=== PATIENT | male | born 1955 | race Caucasian/White ===

== ENCOUNTER 2022-04-02 14:14 | Outpatient (CLI) | payer MEDICARE, OTHER, SELFPAY ==
--- NOTE | 2022-04-02 14:22 | ECG_ITS ---
Measurements Intervals [place] Rate: 68 P: 112 NE: 153 QRS: -51 QRSD: 129 T: 69 QT: 397 QTc: 424 Interpretive Statements SINUS RHYTHM LEFT ANTERIOR FASCICULAR BLOCK CANNOT RULE OUT SEPTAL MYOCARDIAL INFARCTION, OF INDETERMINATE AGE ABNORMAL ECG NO PREVIOUS ECG AVAILABLE FOR COMPARISON Electronically Signed On 04-02-2022 16:24:09 CDT by Mike Nolan M.D.
== END 2022-04-02 14:15 | disposition home or self-care (01) ==
PROVIDERS: Visit Provider Neurological Surgery
DX: Z01.818 Encounter for other preprocedural examination (principal); I44.4 Left anterior fascicular block
CPT/HCPCS: 93005

== ENCOUNTER 2022-04-23 10:06 | Outpatient (CLI) | payer MEDICARE, OTHER, SELFPAY ==
[2022-04-23 10:55] LABS: Anion Gap 12 mmol/L (8-16); Blood Urea Nitrogen 17 mg/dL (9-20); Calcium 9.1 mg/dL (8.4-10.2); Carbon Dioxide 26 mmol/L (22-30); Chloride 102 mmol/L (98-107); Estimated Glomerular Filt Rate > 60; Glucose 152 mg/dL (65-110); Potassium 4.3 mmol/L (3.4-5.0); Sodium 140 mmol/L (137-145)
== END 2022-04-23 10:07 | disposition home or self-care (01) ==
LOC: ANHSURGERY 10:11
PROVIDERS: Anesthesiology; PCP Internal Medicine; Visit Provider Neurological Surgery
DX: Z01.818 Encounter for other preprocedural examination (principal); E11.9 Type 2 diabetes mellitus without complications; M48.062 Spinal stenosis, lumbar region with neurogenic claudication
CPT/HCPCS: 36415; 80048; 86850; 86900; 86901

== ENCOUNTER 2022-04-29 12:11 | Inpatient (IN) | payer MEDICARE, OTHER, SELFPAY ==
[2022-04-18 09:37] VITALS: BMI 38.5
--- NOTE | 2022-04-18 09:58 | PC.NURSE ---
Report to the Outpatient Waiting Room, entrance under the green pavilion located off [facility], at time __10:30AM on date __04/29/22 . Planned Procedure Time: __12:30PM . Time changes happen often and if your time is changed the preop area will call you the afternoon before. - You and your visitor will be asked to self-screen and do not enter if you have any COVID symptoms. - We encourage only one visitor and NO visitors under age 16 are allowed at this time. Your visitor will receive communication by the phone number that is given day of service. - The patient visitor is requested to social distance or may leave the building when not with patient due to restrictions. - A mask is required within the hospital. Patients may have clear liquids (water, carbonated beverages, clear teas, apple juice) until 3 hours prior to surgery with a maximum of 20 ounces. - No food from midnight until time of surgery Take the following medications with a SIP of water the morning of surgery: ___AMLODIPINE, HYDROCODONE NEEDED Medications to discontinue per physician __NONE Date to take last dose Please no make-up, nail urdu, hairspray, perfume, deodorant, or body powder the day of surgery. No jewelry (including any body piercings) or valuables the day of surgery, leave them at home. Please take a shower or bath the night before, or the morning of, surgery with an antibacterial soap. Wear comfortable, loose fitting clothing. Children are encouraged to wear pajamas. - Jewelry must be removed prior to entering the operating room. Rings and piercings that are not removed may be cut off. - The hospital will not accept responsibility for valuables. - Please leave all valuables, including medications, at home the day of surgery. If you are going home after surgery, a licensed regional tanker truck driver must drive you home. - NO public transportation without another adult. - We recommend that an adult stay with you for 24 hours following discharge. - We also recommend that you do not drive, make important decision, drink alcoholic beverages, or take any drugs that were not prescribed by your health care provider for at least 24 hours after your discharge time. Follow any additional instructions given to you from your surgeon. If you or anyone in your household have experienced Covid symptoms in the past week, please notify your surgeon or the nurse liaison at the phone number below for possible testing. Telephone instructions given to __PATIENT and asked if any additional questions and then verbalized understanding. Patient advised to call surgeon office or pre surgery nurse liaison [phone] if any additional questions.
--- NOTE | 2022-04-28 13:00 | WPDANESEPPF ---
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 Patient Data Age: 66 Gender: M Height: 1.83 m Weight: 129 kg Allergies Allergy/AdvReac Type Severity Reaction Status Date / Time No Known Allergies Allergy Unverified 04/29/22 06:47 Home Medications Medication Instructions Recorded Confirmed Type amlodipine 10 mg tablet 10 mg PO DAILY 02/17/22 04/29/22 History hydrocodone 7.5 mg-acetaminophen 1 tablet PO Q8H PRN Pain 02/17/22 04/29/22 History 325 mg tablet lisinopril 40 mg tablet 40 mg PO DAILY 02/17/22 04/18/22 History omeprazole 20 mg capsule,delayed 20 mg PO DAILY PRN Indigestion 02/17/22 04/18/22 History release cyclobenzaprine 10 mg tablet 10 mg PO TID PRN Cramps 04/18/22 04/18/22 History hydrochlorothiazide 25 mg tablet 25 mg PO QAM 04/18/22 04/29/22 History metformin 500 mg tablet,extended 1,500 mg PO QAM 04/18/22 04/18/22 History release 24 hr ondansetron HCl 4 mg tablet 4 mg PO Q6-8H PRN Nausea 04/18/22 04/18/22 History ECG: Date of Service: 04/02/22 Procedure(s): CA 12 lead EKG Accession Number(s): [id number] cc: ~ ? Measurements Intervals? [place]? Rate: ? 68 ? P:? 112 IN: ? 153? QRS:? -51 QRSD: ? 129? T:? 69 QT: ? 397? QTc:? 424? Interpretive Statements SINUS RHYTHM LEFT ANTERIOR FASCICULAR BLOCK? CANNOT RULE OUT SEPTAL MYOCARDIAL INFARCTION, OF INDETERMINATE AGE ABNORMAL ECG NO PREVIOUS ECG AVAILABLE FOR COMPARISON Electronically Signed On 04-02-2022 16:24:09 CDT by Mike Nolan M.D. Patient hx anesthesia problems: none Family hx anesthesia problems: none Results Review: All pre-operative results and documents have been reviewed as part of the pre-operative evaluation. [facility] Past Medical History Medical History (Updated 04/28/22 @ 13:01 by Meir Dumont MD) Benign prostatic hyperplasia with lower urinary tract symptoms Chronic narcotic use Diabetes HTN (hypertension) Obesity Osteoarthritis Urgency of urination Surgical History Surgical History Previous back surgery Family History Family History Other Malignant neoplasm of prostate Social History Social History Smoking packs per day: 1 Smoking cigarettes per day: 20.0 Years smoked: 10 Smoking pack-years: 10.00 Smoking status: Former smoker Tobacco type: cigarettes Smoking end date: 06/07/89 Alcohol intake: current Substance use: never Substance use type: does not use Living arrangements: with family Additional living arrangements comments: Spiritual care concerns: No Anes - Eval Final PreProcedure Day of Procedure 04/28/22 13:00 Patient weight: obese Heart: regular rate and rhythm Lungs: clear to auscultation and normal air movement Airway: Mallampati scale class II Neurological: alert and oriented Last oral intake: >/= 8 hours ASA classification: III Emergent: no Anesthetic plan: proceed Anesthesia type and monitoring: general ETT Results Review: All pre-operative results and documents have been reviewed as part of the pre-operative evaluation. Informed Consent: The patient's anesthetic plan and its attendant risks and benefits were discussed with the patient/family/POA. Questions were solicited and answers provided to the satisfaction of the patient/family/POA.
[2022-04-29] VITALS (15 sets, daily range): BP systolic 82–128; BP diastolic 43–73; PULSE 44–73; RESP 14–22; TEMP 36.2–36.6; O2SAT 94–100
--- NOTE | ~2022-04-29 | XR_ITS ---
XR abdomen/kub 1V DATE: 05/01/2022 22:03 INDICATION: Abdominal pain, nausea and vomiting TECHNIQUE: 2 portable AP views COMPARISON: None FINDINGS: There is gaseous distention but no abnormal dilatation of much of the colon, terminating at the mid sigmoid area. No colonic thumbprinting is noted. Consider further evaluation with radiograph ic barium or Hypaque enema procedure or CT abdomen pelvis as clinically appropriate. Status post posterior and interbody spinal fusion at L2-L5. IMPRESSION: Gaseous distention of the colon to the mid sigmoid level; consider radiographic barium or Hypaque enema or CT abdomen pelvis for further evaluation Reviewed, dictated and finalized at [facility]. Reviewed, dictated and finalized at [facility]. ING HOME AIDE IMPRESSION: Gaseous distention of the colon to the mid sigmoid level; consider radiographic barium or Hypaque enema or CT abdomen pelvis for further evaluatio n
--- NOTE | ~2022-04-29 | XR_ITS ---
EXAMINATION: XR fluoroscopy no charge DATE: 04/29/2022 10:33 INDICATION: L2-L3 posterior lumbar interbody fusion TECHNIQUE: Single fluoroscopic image of the lumbar spine was obtained in lateral projection during pr ocedure performed by Dr. He. Radiologist was not present for the imaging or procedure. [facility] nt of fluoroscopy time used during this procedure was 0.1 minutes. COMPARISON: MRI dated 07/30/2021 FINDINGS: Again seen is an instrumented L3-L4 and L4-L5 anterior and posterior spinal fusion with interbody bon e graft cages at both levels and bilateral vertical gaviota and pedicle screw fixation. There is placemen t of a new interbody fusion device at L2-L3 and placements of pedicle screws at L2 presumably for cep halad extension of the prior posterior spinal fusion. Lucent operative bed with soft tissue retractor s posterior to the lumbar spine. IMPRESSION: 1. Fluoroscopy utilized during extension of a previous combined instrumented anterior and posterior L 3-L5 posterior spinal fusion to now include L2-L3. See procedure note for further detail. Reviewed, dictated and finalized at [facility]. N AGENT IMPRESSION: 1. Fluoroscopy utilized during extension of a previous combined instrumented an terior and posterior L3-L5 posterior spinal fusion to now include L2-L3. See pr ocedure note for further detail.
[2022-04-29] MEDS: LACTATED RINGERS 1,000 ML 30 ML IV CONT ×3 (06:30→11:00)
[2022-04-29 06:35] LABS: Glucose Point of Care 155 mg/dl (65-105)
--- NOTE | 2022-04-29 07:45 | PM.IMHP ---
H&P: HPI History of Present Illness Date/Time: 04/29/22 07:45 Chief Complaint: Back and leg pain Narrative: Hamzah is a 66-year-old gentleman with back and leg pain related to junctional stenosis at L2-3 presents for extension of his fusion. He has not changed appreciably since we saw him last. He does not have dermatomal numbness or specific muscle group weakness. He is not having bowel or bladder difficulty. Review of Systems Review of Systems: Patient denies shortness of breath, cough, fever, chills, nausea, vomiting, weight loss, weight gain, chest pain, dysuria. He has back and leg pain as above. He is morbidly obese. His review of systems otherwise negative on 12 systems except as noted elsewhere. [facility] Past Medical History Medical History Benign prostatic hyperplasia with lower urinary tract symptoms Chronic narcotic use Diabetes HTN (hypertension) Obesity Osteoarthritis Urgency of urination Surgical History Surgical History Previous back surgery Family History Family History Other Malignant neoplasm of prostate Social History Social History Smoking packs per day: 1 Smoking cigarettes per day: 20.0 Years smoked: 10 Smoking pack-years: 10.00 Smoking status: Former smoker Tobacco type: cigarettes Smoking end date: 06/07/89 Alcohol intake: current Substance use: never Substance use type: does not use Living arrangements: with family Additional living arrangements comments: Spiritual care concerns: No Meds Home Medications and Allergies Home Medications Medication Instructions Recorded Confirmed Type amlodipine 10 mg tablet 10 mg PO DAILY 02/17/22 04/29/22 History hydrocodone 7.5 mg-acetaminophen 1 tablet PO Q8H PRN Pain 02/17/22 04/29/22 History 325 mg tablet lisinopril 40 mg tablet 40 mg PO DAILY 02/17/22 04/29/22 History omeprazole 20 mg capsule,delayed 20 mg PO DAILY PRN Indigestion 02/17/22 04/29/22 History release cyclobenzaprine 10 mg tablet 10 mg PO TID PRN Cramps 04/18/22 04/29/22 History hydrochlorothiazide 25 mg tablet 25 mg PO QAM 04/18/22 04/29/22 History metformin 500 mg tablet,extended 1,500 mg PO QAM 04/18/22 04/29/22 History release 24 hr ondansetron HCl 4 mg tablet 4 mg PO Q6-8H PRN Nausea 04/18/22 04/29/22 History Allergies Allergy/AdvReac Type Severity Reaction Status Date / Time No Known Allergies Allergy Unverified 04/29/22 06:47 Vital Signs Vital Signs - 24 hr 04/29/22 06:07 Temperature 97.3 F L Pulse Rate 61 Respiratory Rate 18 Blood Pressure 124/73 Pulse Oximetry 97 Oxygen Delivery Room Air Exam Narrative: Strength is normal the bilateral lower extremities to direct confrontation. Sensation is intact to light touch throughout the lower extremities. Regular rate and rhythm Clear to auscultation Assessment and Plan Assessment and plan (1) Lumbar stenosis with neurogenic claudication: Code(s): M48.062 - Spinal stenosis, lumbar region with neurogenic claudication Status: Acute Plan Hamzah is a 66-year-old gentleman who presents for L2-3 posterior lumbar interbody fusion for junctional stenosis. I described to him that operation, its risks, potential benefits, the operative and postoperative course in detail and answered all his questions personally as well as discussed alternatives. He indicates understanding and elects to proceed with that operation.
--- NOTE | 2022-04-29 07:48 | WPDHPUPDATE1 ---
History and Physical Update Update Date/Time: 04/29/22 07:48 History and Physical has been reviewed, including an updated exam of the patient. There are NO changes in the patient's condition. Risks, benefits, and alternatives have been discussed and questions answered. Patient agrees to proceed with procedure.
[2022-04-29] MEDS: ceFAZolin 3 GM/D5W 100 ML 100 ML IVPB (07:49)
[2022-04-29] MEDS: LIDO 2%/EPINEPHRINE 1:100,000 50 ML VIAL 10 ML INFILTRATE (08:24)
--- NOTE | 2022-04-29 10:47 | W.PM.PROC2 ---
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 Description of Procedure The patient was brought to the operating room in the supine position, was sedated, intubated and placed under general anesthesia in routine fashion. He was then turned into the prone position on an open Jax table. The area of operation on his back was examined, marked for incision, prepped and draped in routine sterile fashion. Incision was marked over the L2 through 5 spinous processes in the midline. This area was injected with 0.5% lidocaine with 1 to [id number] epinephrine. Intravenous antibiotics given prior to incision. Incision was made with a 10 blade scalpel down to the lumbodorsal fascia. A subperiosteal dissection of the muscle and soft tissue away from the spinous process and lamina of L2 was performed with a subperiosteal elevator and Bovie cautery. The instrumentation at L 3-5 was uncovered using Bovie cautery. A verifying x-rays obtained to verify the level of operation. The L2 spinous process was removed with the Chelsea rongeur. Kerrison punches, curved curettes and a Leksell rongeur were used to remove lamina the midline and to the soft contents of the canal were encountered. A Midas Lebron drill was used to resect the pars bilaterally. The inferior articular process and facet of L2 could not be removed bilaterally. When this was done on the right side of the dura came with the facet and peeled superiorly exposing arachnoid below. There was minimal leaking throughout the case. For this reason, however, it was decided to place a single graft in TLIF fashion from the left. Curved curettes and Kerrison punches were used to define a plane with the dura and remove bone and ligament flush with the pedicle and through the foramina widely decompressing the exiting nerve roots. On the left with the thecal sac retracted and protected the disc space was entered using an 11 blade scalpel. Herniated disc was removed from beneath ligament. Scrapers a very sizes, curettes of various configurations, pituitary rongeur and a rasp were used to remove as much cartilaginous endplate and disc material as possible down to bleeding cortical flat surfaces on the opposing bones. The disc space was incised and a 10 mm interbody device was chosen and filled with local autograft bone. The disc space likewise was filled with local autograft bone medially, laterally and anteriorly. The interbody device was then placed in a diagonal fashion across the disc space to a 2-3 mm countersink. Pedicle screw instrumentation was performed at L2 by observing and palpating the pedicle while a hole was made in the superior take your process above the pedicle using a Midas Lebron drill. The pedicle was then cannulated with a pedicle probe, checked for continuity with the ball probe, tapped with the 5.5 mm tap and a 6.5 x 50 mm screw was placed into each pedicle on each side. The caps at L3-5 were removed using the appropriate show horse driver. The rods could then also be removed. The 90 mm rods were then placed into the screw heads on either side and secured in position using the capsule and purpose. These were definitively tightened with a torque anti torque device. Two large pieces of subcutaneous fat were harvested. These were placed against the peeled up dura which was reflected back into position. DuraSeal and DuraGen were placed over all of this. No leaking was noted. The wou
[2022-04-29 10:55] LABS: Glucose Point of Care 232 mg/dl (65-105)
--- NOTE | 2022-04-29 11:10 | SUR.PHASEI ---
1110- Notified Dr. Dumont patient's BG [id number] Dumont no additional orders at this time with patient being admitted to floor for overnight stay.
[2022-04-29] MEDS: ONDANSETRON INJ 4 MG/2 ML VIAL IV PUSH (11:33)
--- NOTE | 2022-04-29 12:14 | PCPTNOTE ---
Per tank charger, pt is on bedrest for a full 24 hours. Will Follow.
--- NOTE | 2022-04-29 12:20 | ADMGEN ---
This patient, Hamzah Lynn, was admitted to 2 Medical Room 256-01. Patient/family oriented to hospital policies and general routines including ID bracelet, bed and alarms, visiting hours, pain management, procedures, bathroom and other care routines, personal items, smoking policy, room service/diet, and visiting hours. Information on how to activate the Rapid Response Team has been discussed. Patient/Family are encouraged to report perceived risks to care and to ask questions if they do not understand what they are told or what they should do.
[2022-04-29] MEDS: KCL 20 MEQ/D5/0.45% SOD CHL 1,000 ML 100 ML IV CONT ×2 (13:23→23:34)
[2022-04-29] MEDS: ONDANSETRON HCL ODT 4 MG TABLET PO (13:26)
[2022-04-29] MEDS: HYDROmorphone HCL INJ (*CRX) 1 MG/ML SYR 0.5 MG IV PUSH (13:29)
[2022-04-29] MEDS: HYDROmorphone HCL INJ (*CRX) 1 MG/ML SYR IV PUSH ×4 (15:10→22:16)
[2022-04-29] MEDS: SCOPOLAMINE 1.5 MG PATCH TRANSDERM (17:11)
[2022-04-29 17:25] LABS: Glucose Point of Care 176 mg/dl (65-105)
[2022-04-29] MEDS: DOCUSATE SODIUM 100 MG CAPSULE PO (20:35)
[2022-04-29 23:07] LABS: Glucose Point of Care 112 mg/dl (65-105)
[2022-04-30] MEDS: HYDROmorphone HCL INJ (*CRX) 1 MG/ML SYR IV PUSH ×6 (00:21→19:48)
[2022-04-30 00:51] VITALS: BP 116/59; PULSE 60; RESP 16; TEMP 36.6; O2SAT 96
[2022-04-30] MEDS: ONDANSETRON HCL ODT 4 MG TABLET PO (03:19)
[2022-04-30 06:04] VITALS: BP 121/65; PULSE 63; RESP 16; TEMP 36.7; O2SAT 92
[2022-04-30] MEDS: ONDANSETRON INJ 4 MG/2 ML VIAL IV PUSH (06:36)
[2022-04-30 08:51] LABS: Glucose Point of Care 236 mg/dl (65-105)
[2022-04-30] MEDS: INSULIN ASPART (*BKC) 100 UNITS/ML SUB-Q (09:34)
[2022-04-30] MEDS: KCL 20 MEQ/D5/0.45% SOD CHL 1,000 ML 30 ML IV CONT (09:35)
[2022-04-30 09:58] VITALS: BP 131/69; PULSE 61; RESP 20; TEMP 37.1; O2SAT 91
--- NOTE | 2022-04-30 10:03 | PCOTNOTE ---
Per charge histotechnologist, pt is on bedrest for a full 24 hours. Will Follow.
--- NOTE | 2022-04-30 10:11 | PC.NURSE ---
holding 0900 PO medications until Noon when patient can elevate HOB
[2022-04-30 11:59] LABS: Glucose Point of Care 210 mg/dl (65-105)
--- NOTE | 2022-04-30 13:21 | PCPTNOTE ---
Per Dr. He, hold PT for today. Will Follow.
[2022-04-30] MEDS: metFORMIN HCL XR 500 MG TAB.SR.24H 1500 MG PO (13:26)
[2022-04-30] MEDS: hydroCHLOROthiazide 25 MG TABLET PO (13:26)
[2022-04-30] MEDS: amLODIPine BESYLATE 5 MG TABLET 10 MG PO (13:26)
[2022-04-30] MEDS: DOCUSATE SODIUM 100 MG CAPSULE PO ×2 (13:27→20:43)
[2022-04-30] MEDS: lisinopriL 20 MG TABLET 40 MG PO (13:27)
--- NOTE | 2022-04-30 13:27 | PCOTNOTE ---
Per Dr. He, hold therapy services for today. Will Follow.
--- NOTE | 2022-04-30 13:36 | WPDNEUROSGPN ---
Progress Note: A&P Assessment and Plan (1) Lumbar stenosis with neurogenic claudication: Code(s): M48.062 - Spinal stenosis, lumbar region with neurogenic claudication Status: Acute Plan Hamzah is doing well status post L2-3 posterior lumbar interbody fusion for junctional stenosis. We will start to raises had gradually today and by this evening he may get out of bed and sit in the chair if he would like. Physical and occupational therapy are involved in his care. Subjective Date/time seen: 04/30/22 13:36 Hamzah is postop day 1 status post L2-3 posterior lumbar interbody fusion. He has significant back discomfort near the area of the operation. He had a headache for a while but his head was lying flat at the time. This has gone away. He has had no leakage from his wound. He does not report any new issues in his lower extremities. Exam Narrative: Strength appears to be normal the bilateral lower extremities to direct confrontation. Sensation is intact to light touch throughout the lower extremities. The dressing and wound are clean, dry and intact. Objective Data Vital Signs Vital Signs: Vital Signs - 24 hr 04/29/22 15:11 04/29/22 20:02 04/29/22 20:00 Temperature 97.9 F 97.6 F Pulse Rate 58 L 52 L Respiratory Rate 16 16 Blood Pressure 126/63 116/60 Pulse Oximetry 100 99 Oxygen Delivery Room Air 04/30/22 00:51 04/30/22 06:04 04/30/22 09:58 Temperature 97.9 F 98.1 F 98.7 F Pulse Rate 60 63 61 Respiratory Rate 16 16 20 Blood Pressure 116/59 L 121/65 131/69 Pulse Oximetry 96 92 91 Oxygen Delivery 04/30/22 08:00 Temperature Pulse Rate Respiratory Rate Blood Pressure Pulse Oximetry Oxygen Delivery Room Air Intake/Output Intake/Output: Intake & Output 04/27/22 04/28/22 04/29/22 04/30/22 23:59 23:59 23:59 23:59 Intake Total 4150 1750 Output Total 635 950 Balance 3515 800 Meds/Results Medications: Active Medications Generic Name Dose Route Start Last Admin Trade Name Freq PRN Reason Stop Dose Admin Hydrocodone Bitart/Acetaminophen 1 tab 04/29/22 12:11 Hydrocodone/Acetaminophen (*Crx) 5-325 Mg Tablet PO Q4H PRN Mild Pain (1-3) Hydrocodone Bitart/Acetaminophen 1 tab 04/29/22 12:11 Hydrocodone/Acetaminophen (*Crx) 10-325 Mg Tablet PO Q4H PRN Moderate Pain (4-6) Al Hydrox/Mg Hydrox/Simethicone 20 ml 04/29/22 12:11 Mag Hydrox/Al Hydrox/Simeth 30 Ml Udc PO Q4H PRN Indigestion/Heartburn Amlodipine Besylate 10 mg 04/30/22 09:00 04/30/22 13:26 Amlodipine Besylate 5 Mg Tablet PO 10 mg DAILY IRENE Administration Bisacodyl 10 mg 04/29/22 12:11 Bisacodyl 10 Mg Suppository RECTAL DAILY PRN Constipation Cyclobenzaprine HCl 10 mg 04/29/22 12:11 Cyclobenzaprine Hcl 10 Mg Tablet PO TID PRN Muscle Spasms Dextrose 12.5 gm 04/29/22 15:50 Dextrose 50% 25 Gm/50 Ml Syringe IV PUSH PRN PRN Hypoglycemia Protocol Docusate Sodium 100 mg 04/29/22 21:00 04/30/22 13:27 Docusate Sodium 100 Mg Capsule PO 100 mg Q12HR IRENE Administration Glucagon 1 mg 04/29/22 15:50 Glucagon For Inj 1 Mg Vial IM PRN PRN Hypoglycemia Protocol Glucose 15 gm 04/29/22 15:50 Glucose Oral Gel 15 Gm Of Glucse In 37.5 Gm Tube PO PRN PRN Hypoglycemia Protocol Hydrochlorothiazide 25 mg 04/30/22 09:00 04/30/22 13:26 Hydrochlorothiazide 25 Mg Tablet PO 25 mg QAM IRENE Administration Hydromorphone HCl 1 mg 04/29/22 14:53 04/30/22 11:48 Hydromorphone Hcl Inj (*Crx) 1 Mg/Ml Syr IV PUSH 1 mg Q2H PRN Administration Pain Rated 7-10 Potassium Chloride/Dextrose/Sod Cl 1,000 mls @ 100 mls/hr 04/29/22 12:11 04/30/22 09:35 Kcl 20 Meq/D5/0.45% Sod Chl IV CONT 30 mls/hr .Q10H IRENE Administration Dextrose 1,000 mls @ 100 mls/hr 04/29/22 15:50 Dextrose 5% 1,000 Ml IVPB PRN PRN Hypoglycemia
[2022-04-30 14:16] VITALS: BP 140/55; PULSE 59; RESP 24; TEMP 36.5; O2SAT 96
--- NOTE | 2022-04-30 14:17 | PC.NURSE ---
Per Dr. He, leave Felix catheter in until tomorrow 05/01. Follow up w/ him before removal.
[2022-04-30 17:14] LABS: Glucose Point of Care 170 mg/dl (65-105)
[2022-04-30 17:22] VITALS: BP 137/89; PULSE 69; RESP 20; TEMP 36.2; O2SAT 92
[2022-04-30 22:32] LABS: Glucose Point of Care 196 mg/dl (65-105)
[2022-04-30] MEDS: HYDROcodone/acetaminophen (*CRX) 10-325 MG TABLET 1 TAB PO (22:38)
[2022-04-30 22:46] VITALS: BP 135/73; PULSE 70; RESP 18; TEMP 36.9; O2SAT 95
--- NOTE | 2022-04-30 23:28 | WPDNEUROSGPN ---
Subjective Date/time seen: 04/30/22 23:28 Felicia is postop day 1 status post L2-3 posterior lumbar interbody fusion. Objective Data Vital Signs Vital Signs: Vital Signs - 24 hr 04/30/22 00:51 04/30/22 06:04 04/30/22 09:58 Temperature 97.9 F 98.1 F 98.7 F Pulse Rate 60 63 61 Respiratory Rate 16 16 20 Blood Pressure 116/59 L 121/65 131/69 Pulse Oximetry 96 92 91 Oxygen Delivery 04/30/22 08:00 04/30/22 14:16 04/30/22 17:22 Temperature 97.7 F 97.2 F L Pulse Rate 59 L 69 Respiratory Rate 24 H 20 Blood Pressure 140/55 L 137/89 Pulse Oximetry 96 92 Oxygen Delivery Room Air 04/30/22 20:10 04/30/22 22:46 Temperature 98.4 F Pulse Rate 70 Respiratory Rate 18 Blood Pressure 135/73 Pulse Oximetry 95 Oxygen Delivery Room Air Intake/Output Intake/Output: Intake & Output 04/27/22 04/28/22 04/29/22 04/30/22 23:59 23:59 23:59 23:59 Intake Total 4150 1950 Output Total 635 950 Balance 3515 1000 Meds/Results Medications: Active Medications Generic Name Dose Route Start Last Admin Trade Name Freq PRN Reason Stop Dose Admin Hydrocodone Bitart/Acetaminophen 1 tab 04/29/22 12:11 Hydrocodone/Acetaminophen (*Crx) 5-325 Mg Tablet PO Q4H PRN Mild Pain (1-3) Hydrocodone Bitart/Acetaminophen 1 tab 04/29/22 12:11 04/30/22 22:38 Hydrocodone/Acetaminophen (*Crx) 10-325 Mg Tablet PO 1 tab Q4H PRN Administration Moderate Pain (4-6) Al Hydrox/Mg Hydrox/Simethicone 20 ml 04/29/22 12:11 Mag Hydrox/Al Hydrox/Simeth 30 Ml Udc PO Q4H PRN Indigestion/Heartburn Amlodipine Besylate 10 mg 04/30/22 09:00 04/30/22 13:26 Amlodipine Besylate 5 Mg Tablet PO 10 mg DAILY IRENE Administration Bisacodyl 10 mg 04/29/22 12:11 Bisacodyl 10 Mg Suppository RECTAL DAILY PRN Constipation Cyclobenzaprine HCl 10 mg 04/29/22 12:11 Cyclobenzaprine Hcl 10 Mg Tablet PO TID PRN Muscle Spasms Dextrose 12.5 gm 04/29/22 15:50 Dextrose 50% 25 Gm/50 Ml Syringe IV PUSH PRN PRN Hypoglycemia Protocol Docusate Sodium 100 mg 04/29/22 21:00 04/30/22 20:43 Docusate Sodium 100 Mg Capsule PO 100 mg Q12HR IRENE Administration Glucagon 1 mg 04/29/22 15:50 Glucagon For Inj 1 Mg Vial IM PRN PRN Hypoglycemia Protocol Glucose 15 gm 04/29/22 15:50 Glucose Oral Gel 15 Gm Of Glucse In 37.5 Gm Tube PO PRN PRN Hypoglycemia Protocol Hydrochlorothiazide 25 mg 04/30/22 09:00 04/30/22 13:26 Hydrochlorothiazide 25 Mg Tablet PO 25 mg QAM IRENE Administration Hydromorphone HCl 1 mg 04/29/22 14:53 04/30/22 19:48 Hydromorphone Hcl Inj (*Crx) 1 Mg/Ml Syr IV PUSH 1 mg Q2H PRN Administration Pain Rated 7-10 Potassium Chloride/Dextrose/Sod Cl 1,000 mls @ 100 mls/hr 04/29/22 12:11 04/30/22 23:18 Kcl 20 Meq/D5/0.45% Sod Chl IV CONT Not Given .Q10H IRENE Dextrose 1,000 mls @ 100 mls/hr 04/29/22 15:50 Dextrose 5% 1,000 Ml IVPB PRN PRN Hypoglycemia Protocol Acetaminophen 1,000 mg in 100 mls @ 400 mls/hr 04/30/22 11:36 04/30/22 12:00 Ofirmev 1,000 Mg Ivpb IVPB 05/01/22 11:35 Infused Q6H PRN Infusion Pain Rated 4-6 Insulin Aspart 2 - 5 units 04/29/22 17:00 04/30/22 17:13 Insulin Aspart (*Bkc) 100 Units/Ml SUB-Q Not Given TIDWM IRENE Protocol Lisinopril 40 mg 04/30/22 09:00 04/30/22 13:27 Lisinopril 20 Mg Tablet PO 40 mg DAILY IRENE Administration Metformin HCl 1,500 mg 04/30/22 09:00 04/30/22 13:26 Metformin Hcl Xr 500 Mg Tab.Sr.24h PO 1,500 mg QAM IRENE Administration Ondansetron HCl 4 mg 04/29/22 15:50 04/30/22 03:19 Ondansetron Hcl Odt 4 Mg Tablet PO 4 mg Q4H PRN Administration Nausea Ondansetron HCl 4 mg 04/29/22 15:51 04/30/22 06:36 Ondansetron Inj 4 Mg/2 Ml Vial IV PUSH 4 mg Q4H PRN Administration Nausea And Vomiting Pantoprazole Sodium 40 mg 04/29/22 12:11
[2022-05-01] MEDS: ONDANSETRON HCL ODT 4 MG TABLET PO ×2 (01:22→05:07)
[2022-05-01 01:49] VITALS: BP 111/58; PULSE 74; RESP 18; TEMP 37.1; O2SAT 97
[2022-05-01] MEDS: HYDROcodone/acetaminophen (*CRX) 10-325 MG TABLET 1 TAB PO ×2 (05:07→21:24)
[2022-05-01 06:47] VITALS: BP 151/75; PULSE 80; RESP 18; TEMP 36.9; O2SAT 95
[2022-05-01 08:11] LABS: Glucose Point of Care 242 mg/dl (65-105)
[2022-05-01] MEDS: amLODIPine BESYLATE 5 MG TABLET 10 MG PO (08:20)
[2022-05-01] MEDS: lisinopriL 20 MG TABLET 40 MG PO (08:20)
[2022-05-01] MEDS: DOCUSATE SODIUM 100 MG CAPSULE PO ×2 (08:20→19:22)
[2022-05-01] MEDS: metFORMIN HCL XR 500 MG TAB.SR.24H 1500 MG PO (08:20)
[2022-05-01] MEDS: hydroCHLOROthiazide 25 MG TABLET PO (08:20)
[2022-05-01] MEDS: INSULIN ASPART (*BKC) 100 UNITS/ML SUB-Q (08:44)
[2022-05-01] MEDS: ONDANSETRON INJ 4 MG/2 ML VIAL IV PUSH ×3 (11:23→22:47)
[2022-05-01] MEDS: MAG HYDROX/AL HYDROX/SIMETH 30 ML UDC 20 ML PO (11:23)
[2022-05-01 12:18] LABS: Glucose Point of Care 196 mg/dl (65-105)
[2022-05-01 14:50] VITALS: BP 146/67; PULSE 68; RESP 16; TEMP 36.9; O2SAT 96
[2022-05-01 18:13] LABS: Glucose Point of Care 190 mg/dl (65-105)
[2022-05-01 19:41] VITALS: O2SAT 96
[2022-05-01 19:57] LABS: Glucose Point of Care 199 mg/dl (65-105)
--- NOTE | 2022-05-01 20:10 | WPDCN ---
Assessment and Plan Assessment and plan (1) Lumbar stenosis with neurogenic claudication: Code(s): M48.062 - Spinal stenosis, lumbar region with neurogenic claudication Status: Acute Assessment and Plan: Postoperative day 2 status post L2-3 posterior lumbar interbody fusion for junctional stenosis. Wound care, pain control, and DVT prophylaxis deferred to primary team. (2) Postoperative nausea and vomiting: Code(s): R11.2 - Nausea with vomiting, unspecified; Z98.890 - Other specified postprocedural states Status: Acute Assessment and Plan: An ongoing issue since surgery although he has had indigestion, dyspepsia, and belching since being hospitalized last month for pancreatitis. Change omeprazole to pantoprazole IV as he is not tolerating p.o. well at this point. Labs and exam are not consistent with pancreatitis. Check KUB as he has not had a bowel movement since Thursday. Given ongoing symptoms, Dr. Foster has been consulted for consideration for possible upper endoscopy. Continue supportive care with hydration and antiemetics as needed. (3) Hyponatremia: Code(s): E87.1 - Hypo-osmolality and hyponatremia Status: Acute Assessment and Plan: Sodium was 140 on 04/23/2022 and is 126 this evening. Etiology is not entirely clear however it may very well be due to dehydration given his poor oral intake and vomiting. SIADH is a possibility given recent surgery and narcotic use. The last 2 days he has been receiving D5/half-normal saline which could also be dropping his sodium in addition to his usual dose of hydrochlorothiazide. I suspect he is probably a bit dry and he will receive a bolus of normal saline followed by 100 milliliters/hour. Sodium will be repeated in a few hours to ensure that is responding appropriately. TSH, urine and serum osmolalities, and urine urea, sodium, and creatinine are pending. (4) Dyspepsia: Code(s): R10.13 - Epigastric pain Status: Acute Assessment and Plan: Zofran available as needed. Continue IV pantoprazole. GI consulted. (5) Type 2 diabetes mellitus: Code(s): E11.9 - Type 2 diabetes mellitus without complications Status: Acute Assessment and Plan: Hold metformin as it may be causing GI upset on his empty stomach. Initiate sliding scale insulin, Accu-Cheks, and hypoglycemic protocol. (6) Hypertension: Code(s): I10 - Essential (primary) hypertension Status: Acute Assessment and Plan: Blood pressures were reviewed and they have been reasonable. Monitor closely as hydrochlorothiazide is on hold. (7) Leukocytosis: Code(s): D72.829 - Elevated white blood cell count, unspecified Status: Acute Assessment and Plan: No history to suggest active infection. May be a stress response/inflammation from surgery. Monitor. Plan Thank you for allowing us to participate in this patient's care. Please do not hesitate to contact us with any questions. Supervising physician for this medical consultation is Dr. Juarez. HPI Data of Consult Date/Time: 05/01/22 20:10 Requesting Physician: Marky He MD Primary Care Provider: Nicola Patel, Consult Narrative Reason for consult: Nausea. Narrative: This is a 66-year-old male with history of pancreatitis, GERD, hypertension, diabetes, and BPH who is postoperative day 2 status post L2-3 posterior lumbar interbody fusion per Dr. He whom the hospitalist service has been consulted for ongoing nausea and vomiting. He has had pretty continuous nausea since surgery with heartburn, belching, and occasional emesis. He has been on a clear liquid diet and has not had any solid food although he was offered that today he had no desire to eat. He has been trying to stay hydrated and is drinking 4 to 5 cups of water a day. Zofran helps only for short period of time. Today he reports that his emesis was yellow and that
[2022-05-01 20:23] LABS: Basophils Percent Auto 0.2 % (0.2-1.2); Hematocrit 41.8 % (42.0-52.0); Hemoglobin 14.3 g/dL (14.0-18.0); Immature Granulocyte Absolute 0.16 K/mm3 (0.00-0.031); Immature Granulocyte Percent A 0.7 % (0-0.5); Lymphocytes Absolute Auto 1.05 K/mm3 (0.9-3.2); Lymphocytes Percent Auto 4.7 % (18.3-44.2); Mean Corpuscular HGB Conc 34.2 g/dl (32-36); Mean Corpuscular Volume 90.5 fl (80-100); Monocytes Absolute Auto 1.4 K/mm3 (0.1-0.6); Monocytes Percent Auto 6.5 % (2.6-8.5); Neutrophils Absolute Auto 19.6 K/mm3 (1.3-6.7); Neutrophils Percent Auto 87.9 % (45.5-73.1); Platelet Count Result 260 k/mm3 (150-375); Red Blood Count 4.62 M/mm3 (4.6-6.20); White Blood Count 22.3 K/mm3 (4.5-10.0)
[2022-05-01 20:34] LABS: Alanine Aminotransferase 46 U/L (6-50); Albumin Level 3.7 g/dL (3.5-5.1); Alkaline Phosphatase 53 U/L (38-126); Anion Gap 9 mmol/L (8-16); Aspartate Amino Transferase 81 U/L (17-59); Bilirubin,Total 1.4 mg/dL (0.2-1.3); Blood Urea Nitrogen 13 mg/dL (9-20); Calcium 8.8 mg/dL (8.4-10.2); Carbon Dioxide 23 mmol/L (22-30); Chloride 94 mmol/L (98-107); Estimated CRCL calculation 110 ml/min; Estimated Glomerular Filt Rate > 60; Glucose 198 mg/dL (65-110); Lipase 17 U/L (23-300); Magnesium 1.6 mg/dL (1.6-2.3); Potassium 3.8 mmol/L (3.4-5.0); Sodium 126 mmol/L (137-145)
[2022-05-01 20:37] LABS: Hemoglobin A1C 7.2 % (<5.7)
[2022-05-01 20:39] VITALS: BP 152/86; PULSE 91; RESP 20; TEMP 36.9; O2SAT 99
--- NOTE | 2022-05-01 20:44 | WPDNEUROSGPN ---
Progress Note: A&P Assessment and Plan (1) Lumbar stenosis with neurogenic claudication: Code(s): M48.062 - Spinal stenosis, lumbar region with neurogenic claudication Status: Acute Assessment and Plan: Hamzah is doing well status post L2-3 posterior lumbar interbody fusion for junctional stenosis.? [facility]/cramping in setting of GI history (recent pancreatitis); possible AMS earlier today but doing well on exam with me this evening Subjective Date/time seen: 05/01/22 20:44 Interval history: sleeping in chair when I rounded. Woke up easily. Has been complaining of cramping in abdomen and nausea. no hypotension headaches. per nursing, was seeing bugs crawling earlier today/confusion. Patient says He thought he saw ants crawling up the wall. Exam Narrative: GCS15. Dressing removed. Incision in tact. No drainage. Moving legs strong. Objective Data Vital Signs Vital Signs: Vital Signs - 24 hr 04/30/22 22:46 05/01/22 01:49 05/01/22 06:47 Temperature 36.9 C 37.1 C 36.9 C Pulse Rate 70 74 80 Respiratory Rate 18 18 18 Blood Pressure 135/73 111/58 L 151/75 H Pulse Oximetry 95 97 95 Oxygen Delivery 05/01/22 07:47 05/01/22 08:00 05/01/22 14:50 Temperature 36.9 C Pulse Rate 68 Respiratory Rate 16 Blood Pressure 146/67 H Pulse Oximetry 96 Oxygen Delivery Room Air Room Air 05/01/22 19:41 05/01/22 20:39 Temperature 36.9 C Pulse Rate 91 Respiratory Rate 20 Blood Pressure 152/86 H Pulse Oximetry 96 99 Oxygen Delivery Room Air Intake/Output Intake/Output: Intake & Output 04/28/22 04/29/22 04/30/22 05/01/22 23:59 23:59 23:59 23:59 Intake Total 4150 1950 2890 Output Total 360 889 5446 Balance 3515 1000 940 Meds/Results Medications: Active Medications Generic Name Dose Route Start Last Admin Trade Name Freq PRN Reason Stop Dose Admin Hydrocodone Bitart/Acetaminophen 1 tab 04/29/22 12:11 Hydrocodone/Acetaminophen (*Crx) 5-325 Mg Tablet PO Q4H PRN Mild Pain (1-3) Hydrocodone Bitart/Acetaminophen 1 tab 04/29/22 12:11 05/01/22 05:07 Hydrocodone/Acetaminophen (*Crx) 10-325 Mg Tablet PO 1 tab Q4H PRN Administration Moderate Pain (4-6) Al Hydrox/Mg Hydrox/Simethicone 20 ml 04/29/22 12:11 05/01/22 11:23 Mag Hydrox/Al Hydrox/Simeth 30 Ml Udc PO 20 ml Q4H PRN Administration Indigestion/Heartburn Amlodipine Besylate 10 mg 04/30/22 09:00 05/01/22 08:20 Amlodipine Besylate 5 Mg Tablet PO 10 mg DAILY IRENE Administration Bisacodyl 10 mg 04/29/22 12:11 Bisacodyl 10 Mg Suppository RECTAL DAILY PRN Constipation Cyclobenzaprine HCl 10 mg 04/29/22 12:11 Cyclobenzaprine Hcl 10 Mg Tablet PO TID PRN Muscle Spasms Dextrose 12.5 gm 04/29/22 15:50 Dextrose 50% 25 Gm/50 Ml Syringe IV PUSH PRN PRN Hypoglycemia Protocol Docusate Sodium 100 mg 04/29/22 21:00 05/01/22 19:22 Docusate Sodium 100 Mg Capsule PO 100 mg Q12HR IRENE Administration Glucagon 1 mg 04/29/22 15:50 Glucagon For Inj 1 Mg Vial IM PRN PRN Hypoglycemia Protocol Glucose 15 gm 04/29/22 15:50 Glucose Oral Gel 15 Gm Of Glucse In 37.5 Gm Tube PO PRN PRN Hypoglycemia Protocol Hydrochlorothiazide 25 mg 04/30/22 09:00 05/01/22 08:20 Hydrochlorothiazide 25 Mg Tablet PO 25 mg QAM IRENE Administration Hydromorphone HCl 1 mg 04/29/22 14:53 04/30/22 19:48 Hydromorphone Hcl Inj (*Crx) 1 Mg/Ml Syr IV PUSH 1 mg Q2H PRN Administration Pain Rated 7-10 Potassium Chloride/Dextrose/Sod Cl 1,000 mls @ 100 mls/hr 04/29/22 12:11 05/01/22 11:30 Kcl 20 Meq/D5/0.45% Sod Chl IV CONT Infused .Q10H IRENE Infusion Dextrose 1,000 mls @ 100 mls/hr 04/29/22 15:50 Dextrose 5% 1,000 Ml IVPB PRN PRN Hypoglycemia Protocol Insulin Aspart 2 - 5 units 04/29/22 17:00 05/01/22 18:08 Ins
--- NOTE | 2022-05-01 21:29 | PC.NURSE ---
reported wbc's 22.3 to Dahiana Gillette to assess labs and discuss labs with pt, place orders as needed.
[2022-05-01] MEDS: SODIUM CHLORIDE 0.9% IV 1,000 ML 999 ML IV CONT (22:01)
[2022-05-01] MEDS: CYCLOBENZAPRINE HCL 10 MG TABLET PO (22:02)
[2022-05-01] MEDS: SENNA/DOCUSATE SODIUM TABLET 1 TAB PO (22:02)
[2022-05-01] MEDS: SODIUM CHLORIDE 0.9% IV 1,000 ML 100 ML IV CONT (22:47)
[2022-05-02] VITALS (7 sets, daily range): BP systolic 116–134; BP diastolic 69–83; PULSE 68–99; RESP 18–21; TEMP 36.5–37.2; O2SAT 95–100
[2022-05-02] MEDS: PANTOPRAZOLE SODIUM IV 40 MG VIAL IV PUSH ×2 (00:39→20:10)
--- NOTE | 2022-05-02 01:55 | PC.NURSE ---
urine samples collected and sent to lab for analysis.
[2022-05-02 02:51] LABS: Creatinine Urine 77.6 mg/dL; Urea Random Urine 635 MG/DL
[2022-05-02 03:07] LABS: Sodium Urine Random 51 meq/L
--- NOTE | 2022-05-02 03:57 | PC.NURSE ---
sodium draw by lab assistance awaiting results.
[2022-05-02 04:03] LABS: Hematocrit 40.2 % (42.0-52.0); Hemoglobin 13.7 g/dL (14.0-18.0); Mean Corpuscular HGB Conc 34.1 g/dl (32-36); Mean Platelet Volume 10.8 fl (7.4-10.4); Platelet Count Result 222 k/mm3 (150-375); Red Blood Count 4.42 M/mm3 (4.6-6.20); Red Cell Distribution Width 12.9 % (11.5-14.5); White Blood Count 16.7 K/mm3 (4.5-10.0)
[2022-05-02 04:09] LABS: Sodium 130 mmol/L (137-145)
[2022-05-02 04:13] LABS: Anion Gap 10 mmol/L (8-16); Blood Urea Nitrogen 13 mg/dL (9-20); Calcium 8.3 mg/dL (8.4-10.2); Carbon Dioxide 25 mmol/L (22-30); Chloride 96 mmol/L (98-107); Estimated CRCL calculation 124 ml/min; Estimated Glomerular Filt Rate > 60; Glucose 162 mg/dL (65-110); Magnesium 1.6 mg/dL (1.6-2.3); Potassium 3.6 mmol/L (3.4-5.0); Sodium 131 mmol/L (137-145)
--- NOTE | 2022-05-02 04:25 | PC.NURSE ---
sodium trending up for 126 now 130 continue timed sodium labs q4h
[2022-05-02 05:17] LABS: Thyroid Stimulating Hormone Reflex 0.514 uIU/mL (0.465-4.68)
--- NOTE | 2022-05-02 05:55 | PC.NURSE ---
MD Foster consulted r/t nausea and vomiting post op x3 days
[2022-05-02 08:19] LABS: Sodium 130 mmol/L (137-145)
[2022-05-02 08:55] LABS: Glucose Point of Care 162 mg/dl (65-105)
[2022-05-02] MEDS: lisinopriL 20 MG TABLET 40 MG PO (09:13)
[2022-05-02] MEDS: amLODIPine BESYLATE 5 MG TABLET 10 MG PO (09:14)
[2022-05-02] MEDS: HYDROcodone/acetaminophen (*CRX) 5-325 MG TABLET 1 TAB PO (09:14)
[2022-05-02] MEDS: PANTOPRAZOLE 40 MG TABLET PO (09:16)
[2022-05-02] MEDS: DOCUSATE SODIUM 100 MG CAPSULE PO ×2 (09:16→20:10)
[2022-05-02] MEDS: SCOPOLAMINE 1.5 MG PATCH TRANSDERM (09:17)
--- NOTE | 2022-05-02 09:49 | PM.IMPN ---
Progress Note: A&P Assessment and Plan (1) Lumbar stenosis with neurogenic claudication: Code(s): M48.062 - Spinal stenosis, lumbar region with neurogenic claudication Status: Acute Assessment and Plan: Postoperative day 3 status post L2-3 posterior lumbar interbody fusion for junctional stenosis. Wound care, pain control, and DVT prophylaxis deferred to primary team. (2) Postoperative nausea and vomiting: Code(s): R11.2 - Nausea with vomiting, unspecified; Z98.890 - Other specified postprocedural states Status: Acute Assessment and Plan: An ongoing issue since surgery although he has had indigestion, dyspepsia, and belching since being hospitalized last month for pancreatitis. Lipase normal but AST and TBili elevated on admission. Continue pantoprazole IV. KUB showing gaseous distention of the colon to the mid-sigmoid. Given ongoing symptoms, Dr. Foster has been consulted. Will defer to GI. Add dulcolax suppositories. Continue supportive care (3) Hyponatremia: Code(s): E87.1 - Hypo-osmolality and hyponatremia Status: Acute Assessment and Plan: Sodium was 140 on 04/23/22 and dropped to 126. Urine Na 51 but FENa 0.4%. Etiology felt related to dehydration, hypotonic fluids with SIADH from nausea and pain. Also was on HCTZ which has been held. TSH normal. Na better. Will follow. (4) Dyspepsia: Code(s): R10.13 - Epigastric pain Status: Acute Assessment and Plan: Zofran available as needed. Continue IV pantoprazole. GI consulted. (5) Type 2 diabetes mellitus: Code(s): E11.9 - Type 2 diabetes mellitus without complications Status: Acute Assessment and Plan: Hold metformin as it may be causing GI upset on his empty stomach. Continue sliding scale insulin, Accu-Cheks, and hypoglycemic protocol. (6) Hypertension: Code(s): I10 - Essential (primary) hypertension Status: Acute Assessment and Plan: Patient's blood pressure was reviewed on 05/02 Blood pressure remains reasonably well controlled. Will continue current medications. (7) Leukocytosis: Code(s): D72.829 - Elevated white blood cell count, unspecified Status: Acute Assessment and Plan: WBC was 22K. No evidence to suggest active infection. Probably stress response/inflammation from surgery. WBC trending down. Monitor. Subjective Date/time seen: 05/02/22 09:49 Interval history: 66yo male with DM, HTN and recent hosp for pancreatitis here for elective L2-3 laminectomy consulted for post-operative nausea. Patient states he was hospitalized about 1 month ago elsewhere for pancreatitis. Able to view some results on My Chart. CT A/P showing dilated ducts but no choledocylithiasis. HIDA showing chronic cholecystitis. [place] pancreatitis related to medications and/or gallstones. Has continued to have abd pain intermittently since discharge 1 month ago. No clear inciting event except maybe for fried food. Follows with GI. Rare alcohol use. Having nausea here. Also with dull headache. Last BM was 4 days ago. Belching and with cramping upper abd pain. Not eating much but this has been since his previous surgery. Still feels very weak mostly when trying to get up out of chair. No chest pain Exam Narrative: AF 98.3 134/83 99 20 98% ra Gen - NARD Chest - CTA bilaterally, nml RR CV - RRR S1/S2 Abd - Soft, mild epigastric pain. Back - midline vertical lumbar dressing clean, dry and intact Ext - No pedal edema but RLE larger (chronic) Psych - Nml mood and affect Skin - Warm and dry Objective Data Vital Signs Vital Signs: Vital Signs - 24 hr 05/01/22 14:50 05/01/22 19:41 05/01/22 20:39 Temperature 98.4 F 98.5 F Pulse Rate 68 91 Respiratory Rate 16 20 Blood Pressure 146/67 H 152/86 H Pulse Oximetry 96 96 99 Oxygen Delivery Room Air 05/02/22 00:38 05/02/22 06:00 Temperature 97.7 F 98.3 F Pulse Rate 79 99
[2022-05-02] MEDS: SODIUM CHLORIDE 0.9% IV 1,000 ML 100 ML IV CONT ×2 (10:07→19:14)
[2022-05-02 11:22] LABS: Glucose Point of Care 171 mg/dl (65-105)
[2022-05-02 11:28] LABS: Sodium 130 mmol/L (137-145)
[2022-05-02] MEDS: BISACODYL 10 MG SUPPOSITORY RECTAL (11:30)
[2022-05-02 15:52] LABS: Sodium 129 mmol/L (137-145)
[2022-05-02 16:45] LABS: Glucose Point of Care 167 mg/dl (65-105)
--- NOTE | 2022-05-02 18:00 | WPDNEUROSGPN ---
Progress Note: A&P Assessment and Plan (1) Lumbar stenosis with neurogenic claudication: Code(s): M48.062 - Spinal stenosis, lumbar region with neurogenic claudication Status: Acute Plan Arnaldo is doing well postop day 3 status post L2-3 posterior lumbar interbody fusion. He will continue work with physical and occupational therapy. He is having some medical issues which are being worked on. Subjective Date/time seen: 05/02/22 18:00 On is postop day 3 status post L2-3 posterior lumbar interbody fusion. Is doing will stay in for the operation. His drain has been removed. His Felix catheter has been removed. He is ambulating with physical therapy but is not making transfers completely independently yet. He is not having new bowel or bladder difficulty. He has had headaches intermittently but does not have a headache now sitting on the side of the hospital bed in a chair. He has been having some issues related to his pancreas. The hospitalists were consulted. Exam Narrative: Strength is normal in bilateral lower extremities to direct confrontation in the sitting position. Sensation is intact to light touch throughout the lower extremities. His dressing and wound are clean, dry and intact. Objective Data Vital Signs Vital Signs: Vital Signs - 24 hr 05/01/22 19:41 05/01/22 20:39 05/02/22 00:38 Temperature 98.5 F 97.7 F Pulse Rate 91 79 Respiratory Rate 20 20 Blood Pressure 152/86 H 128/75 Pulse Oximetry 96 99 98 Oxygen Delivery Room Air 05/02/22 06:00 05/02/22 09:10 05/02/22 11:22 Temperature 98.3 F 98.9 F Pulse Rate 99 74 Respiratory Rate 20 20 18 Blood Pressure 134/83 120/82 Pulse Oximetry 99 98 95 Oxygen Delivery Room Air 05/02/22 14:52 Temperature 98.0 F Pulse Rate 72 Respiratory Rate 18 Blood Pressure 116/69 Pulse Oximetry 100 Oxygen Delivery Intake/Output Intake/Output: Intake & Output 04/29/22 04/30/22 05/01/22 05/02/22 23:59 23:59 23:59 23:59 Intake Total 4150 1950 2890 2950 Output Total 329 973 0021 400 Balance 3515 0844 997 6362 Meds/Results Medications: Active Medications Generic Name Dose Route Start Last Admin Trade Name Freq PRN Reason Stop Dose Admin Hydrocodone Bitart/Acetaminophen 1 tab 04/29/22 12:11 05/02/22 09:14 Hydrocodone/Acetaminophen (*Crx) 5-325 Mg Tablet PO 1 tab Q4H PRN Administration Mild Pain (1-3) Hydrocodone Bitart/Acetaminophen 1 tab 04/29/22 12:11 05/01/22 21:24 Hydrocodone/Acetaminophen (*Crx) 10-325 Mg Tablet PO 1 tab Q4H PRN Administration Moderate Pain (4-6) Al Hydrox/Mg Hydrox/Simethicone 20 ml 04/29/22 12:11 05/01/22 11:23 Mag Hydrox/Al Hydrox/Simeth 30 Ml Udc PO 20 ml Q4H PRN Administration Indigestion/Heartburn Amlodipine Besylate 10 mg 04/30/22 09:00 05/02/22 09:14 Amlodipine Besylate 5 Mg Tablet PO 10 mg DAILY IRENE Administration Bisacodyl 10 mg 04/29/22 12:11 Bisacodyl 10 Mg Suppository RECTAL DAILY PRN Constipation Bisacodyl 10 mg 05/03/22 09:00 Bisacodyl 10 Mg Suppository RECTAL 05/04/22 09:01 QAM IRENE Cyclobenzaprine HCl 10 mg 04/29/22 12:11 05/01/22 22:02 Cyclobenzaprine Hcl 10 Mg Tablet PO 10 mg TID PRN Administration Muscle Spasms Dextrose 12.5 gm 04/29/22 15:50 Dextrose 50% 25 Gm/50 Ml Syringe IV PUSH PRN PRN Hypoglycemia Protocol Docusate Sodium 100 mg 04/29/22 21:00 05/02/22 09:16 Docusate Sodium 100 Mg Capsule PO 100 mg Q12HR IRENE Administration Glucagon 1 mg 04/29/22 15:50 Glucagon For Inj 1 Mg Vial IM PRN PRN Hypoglycemia Protocol Glucose 15 gm 04/29/22 15:50 Glucose Oral Gel 15 Gm Of Glucse In 37.5 Gm Tube PO PRN PRN Hypoglycemia Protocol Hydrochlorothiazide 25 mg 04/30/22 09:00 05/01/22 08:20 Hydrochlorothiazide 25 Mg Tablet PO 25 mg QAM IRENE Administration Hydromorphone HCl 1 mg 04/29/22 14
--- NOTE | 2022-05-02 18:11 | WPDGICN ---
Assessment and Plan Assessment and plan (1) Postoperative nausea and vomiting: Code(s): R11.2 - Nausea with vomiting, unspecified; Z98.890 - Other specified postprocedural states Status: Acute Assessment and Plan: today is feeling better continue with antiemetics also h/o diabetes ? dysmotility iv protonix never had egd and had gerd symptoms, we can arrange as outpatient (2) Leukocytosis: Code(s): D72.829 - Elevated white blood cell count, unspecified Status: Acute Assessment and Plan: trending down monitor by primary team (3) Dyspepsia: Code(s): R10.13 - Epigastric pain Status: Acute Assessment and Plan: protonix egd as outpatient (4) Hyponatremia: Code(s): E87.1 - Hypo-osmolality and hyponatremia Status: Acute Assessment and Plan: monitor (5) Type 2 diabetes mellitus: Code(s): E11.9 - Type 2 diabetes mellitus without complications Status: Acute Assessment and Plan: on meds (6) Chronic narcotic use: Code(s): F11.90 - Opioid use, unspecified, uncomplicated Status: Acute (7) Lumbar stenosis with neurogenic claudication: Code(s): M48.062 - Spinal stenosis, lumbar region with neurogenic claudication Status: Acute Assessment and Plan: recent surgery (8) History of pancreatitis: Code(s): Z87.19 - Personal history of other diseases of the digestive system Status: Acute Assessment and Plan: he was told to follow up with surgery at later time because history of gallstones. no pancreatitis now GI Consult Note Consult date/time: 05/02/22 18:11 Reason for consult: nausea and vomiting HPI: Hamzah Lynn is a 66 year old male with?history of pancreatitis last month admitted to [facility] (evaluated by Dr Rowland- he was told that was either related to GS or new medication, ozempic), GERD, hypertension, diabetes, and BPH who just had L2-3 posterior lumbar interbody fusion because lumbar pain then developed nausea and vomiting. Also has been dealing with belching and heartburn symptom but today he is feeling much better and finally able to eat dinner. He has been taking hydrocodone and sometimes Tylenol at home for pain but he never takes NSAIDs. He denies alcohol abuse and he thinks that still was not all the way fully recovered from previous pancreatitis. Blood work showed leukocytosis, hyponatremia, normal lipase. Never had EGD. Review of Systems Constitutional: Constitutional: Reports headache(s) and Denies weakness Eyes: Eyes: Denies blurry vision ENT: Reports Normal hearing present Cardiovascular: Cardiovascular: Denies chest pain and Denies dyspnea Respiratory: Respiratory: Denies dyspnea Gastrointestinal: Gastrointestinal: Reports no additional gastrointestinal complaints Genitourinary: Genitourinary: Denies dysuria Musculoskeletal: Musculoskeletal: Reports back pain Integumentary/Breasts: Skin/Breast: Denies dry skin Neurologic: Reports Normal hearing present, Denies headache(s) and Denies weakness Psychiatric: Psychiatric: Denies anxiety Endocrine: Endocrine: Denies change in body appearance Hematologic/Lymphatic: Hematologic/Lymphatic: Denies easy bleeding Allergic/Immunologic: Allergic/Immunologic: Denies urticaria PMFSH Past Medical History Medical History (Updated 05/02/22 @ 18:17 by Uriah Naidu MD) Benign prostatic hyperplasia with lower urinary tract symptoms Cholelithiasis Chronic narcotic use History of pancreatitis Hypertension Obesity Osteoarthritis Pancreatitis (03/2022) Type 2 diabetes mellitus Surgical History Surgical History (Updated 05/01/22 @ 23:57 by Tawana Talbot PA-C) History of lumbar surgery History of transurethral resection of prostate Previous back surgery Status post surgical removal of malignant neoplasm of skin Squamous cell carcinoma. Family History Family History (Reviewed
[2022-05-02 19:46] LABS: Sodium 129 mmol/L (137-145)
[2022-05-02 21:13] LABS: Glucose Point of Care 150 mg/dl (65-105)
[2022-05-02] MEDS: CYCLOBENZAPRINE HCL 10 MG TABLET PO (21:54)
[2022-05-02 22:24] LABS: Sodium 130 mmol/L (137-145)
[2022-05-03 01:41] VITALS: BP 123/83; PULSE 64; RESP 20; TEMP 36.8; O2SAT 98
[2022-05-03] MEDS: SODIUM CHLORIDE 0.9% IV 1,000 ML 100 ML IV CONT (04:33)
[2022-05-03 05:26] VITALS: BP 103/60; PULSE 62; RESP 18; TEMP 36.2; O2SAT 96
[2022-05-03 05:45] LABS: Basophils Absolute Auto 0.1 K/mm3 (0.0-0.1); Basophils Percent Auto 0.5 % (0.2-1.2); Eosinophils Absolute Auto 0.3 K/mm3 (0-0.3); Hematocrit 34.9 % (42.0-52.0); Hemoglobin 11.9 g/dL (14.0-18.0); Immature Granulocyte Absolute 0.05 K/mm3 (0.00-0.031); Immature Granulocyte Percent A 0.5 % (0-0.5); Lymphocytes Absolute Auto 1.85 K/mm3 (0.9-3.2); Lymphocytes Percent Auto 19.3 % (18.3-44.2); Mean Corpuscular HGB Conc 34.1 g/dl (32-36); Mean Corpuscular Hemoglobin 30.1 pg (26-34); Mean Corpuscular Volume 88.4 fl (80-100); Mean Platelet Volume 10.6 fl (7.4-10.4); Monocytes Percent Auto 10.2 % (2.6-8.5); Neutrophils Absolute Auto 6.4 K/mm3 (1.3-6.7); Neutrophils Percent Auto 66.5 % (45.5-73.1); Platelet Count Result 278 k/mm3 (150-375); Red Blood Count 3.95 M/mm3 (4.6-6.20); Red Cell Distribution Width 12.9 % (11.5-14.5); White Blood Count 9.6 K/mm3 (4.5-10.0)
[2022-05-03 05:56] LABS: Alanine Aminotransferase 32 U/L (6-50); Alkaline Phosphatase 38 U/L (38-126); Anion Gap 7 mmol/L (8-16); Aspartate Amino Transferase 38 U/L (17-59); Bilirubin,Total 0.8 mg/dL (0.2-1.3); Blood Urea Nitrogen 13 mg/dL (9-20); Calcium 8.2 mg/dL (8.4-10.2); Carbon Dioxide 26 mmol/L (22-30); Chloride 100 mmol/L (98-107); Estimated CRCL calculation 127 ml/min; Estimated Glomerular Filt Rate > 60; Glucose 138 mg/dL (65-110); Lipase 24 U/L (23-300); Potassium 3.4 mmol/L (3.4-5.0); Sodium 133 mmol/L (137-145)
[2022-05-03 08:17] VITALS: BP 144/113
[2022-05-03] MEDS: amLODIPine BESYLATE 5 MG TABLET 10 MG PO (08:21)
[2022-05-03] MEDS: lisinopriL 20 MG TABLET 40 MG PO (08:22)
[2022-05-03] MEDS: DOCUSATE SODIUM 100 MG CAPSULE PO (08:22)
[2022-05-03] MEDS: PANTOPRAZOLE SODIUM IV 40 MG VIAL IV PUSH (08:23)
[2022-05-03 09:01] LABS: Glucose Point of Care 173 mg/dl (65-105)
[2022-05-03 12:22] LABS: Glucose Point of Care 224 mg/dl (65-105)
--- NOTE | 2022-05-03 12:28 | WPDNEUROSGPN ---
Progress Note: A&P Assessment and Plan (1) Lumbar stenosis with neurogenic claudication: Code(s): M48.062 - Spinal stenosis, lumbar region with neurogenic claudication Status: Acute Assessment and Plan: s/p surgery. doing well. Good for discharge. Patient to follow-up with GI as per their consult note. Follow-up with Dr. He office Subjective Date/time seen: 05/03/22 12:28 Interval history: POD4. Doing well. Cleared by PT. Sitting in chair having lunch. Says doing better. Does have headaches but not positional. Exam Narrative: incision clean and intact. No drainage. Objective Data Vital Signs Vital Signs: Vital Signs - 24 hr 05/02/22 14:52 05/02/22 20:30 05/02/22 20:56 Temperature 36.7 C 36.6 C Pulse Rate 72 68 Respiratory Rate 18 21 H Blood Pressure 116/69 133/80 Pulse Oximetry 100 100 100 Oxygen Delivery Room Air 05/03/22 01:41 05/03/22 05:26 05/03/22 08:17 Temperature 36.8 C 36.2 C L Pulse Rate 64 62 Respiratory Rate 20 18 Blood Pressure 123/83 103/60 144/113 H Pulse Oximetry 98 96 Oxygen Delivery 05/03/22 09:00 Temperature Pulse Rate Respiratory Rate Blood Pressure Pulse Oximetry Oxygen Delivery Room Air Intake/Output Intake/Output: Intake & Output 04/30/22 05/01/22 05/02/22 05/03/22 23:59 23:59 23:59 23:59 Intake Total 1950 2890 3950 1790 Output Total 950 1950 400 600 Balance 2212 178 7472 1190 Meds/Results Medications: Active Medications Generic Name Dose Route Start Last Admin Trade Name Freq PRN Reason Stop Dose Admin Hydrocodone Bitart/Acetaminophen 1 tab 04/29/22 12:11 05/02/22 09:14 Hydrocodone/Acetaminophen (*Crx) 5-325 Mg Tablet PO 1 tab Q4H PRN Administration Mild Pain (1-3) Hydrocodone Bitart/Acetaminophen 1 tab 04/29/22 12:11 05/01/22 21:24 Hydrocodone/Acetaminophen (*Crx) 10-325 Mg Tablet PO 1 tab Q4H PRN Administration Moderate Pain (4-6) Al Hydrox/Mg Hydrox/Simethicone 20 ml 04/29/22 12:11 05/01/22 11:23 Mag Hydrox/Al Hydrox/Simeth 30 Ml Udc PO 20 ml Q4H PRN Administration Indigestion/Heartburn Amlodipine Besylate 10 mg 04/30/22 09:00 05/03/22 08:21 Amlodipine Besylate 5 Mg Tablet PO 10 mg DAILY IRENE Administration Bisacodyl 10 mg 04/29/22 12:11 Bisacodyl 10 Mg Suppository RECTAL DAILY PRN Constipation Bisacodyl 10 mg 05/03/22 09:00 05/03/22 08:21 Bisacodyl 10 Mg Suppository RECTAL 05/04/22 09:01 Not Given QAM IRENE Cyclobenzaprine HCl 10 mg 04/29/22 12:11 05/02/22 21:54 Cyclobenzaprine Hcl 10 Mg Tablet PO 10 mg TID PRN Administration Muscle Spasms Dextrose 12.5 gm 04/29/22 15:50 Dextrose 50% 25 Gm/50 Ml Syringe IV PUSH PRN PRN Hypoglycemia Protocol Docusate Sodium 100 mg 04/29/22 21:00 05/03/22 08:22 Docusate Sodium 100 Mg Capsule PO 100 mg Q12HR IRENE Administration Glucagon 1 mg 04/29/22 15:50 Glucagon For Inj 1 Mg Vial IM PRN PRN Hypoglycemia Protocol Glucose 15 gm 04/29/22 15:50 Glucose Oral Gel 15 Gm Of Glucse In 37.5 Gm Tube PO PRN PRN Hypoglycemia Protocol Hydrochlorothiazide 25 mg 04/30/22 09:00 05/01/22 08:20 Hydrochlorothiazide 25 Mg Tablet PO 25 mg QAM IRENE Administration Hydromorphone HCl 1 mg 04/29/22 14:53 04/30/22 19:48 Hydromorphone Hcl Inj (*Crx) 1 Mg/Ml Syr IV PUSH 1 mg Q2H PRN Administration Pain Rated 7-10 Dextrose 1,000 mls @ 100 mls/hr 04/29/22 15:50 Dextrose 5% 1,000 Ml IVPB PRN PRN Hypoglycemia Protocol Insulin Aspart 2 - 5 units 04/29/22 17:00 05/03/22 09:16 Insulin Aspart (*Bkc) 100 Units/Ml SUB-Q Not Given TIDWM IRENE Protocol Lisinopril 40 mg 04/30/22 09:00 05/03/22 08:22 Lisinopril 20 Mg Tablet PO 40 mg DAILY IRENE Administration Metformin HCl 1,500 mg 04/30/22 09:00 05/01/22 08:20 Metformin Hcl Xr 500 Mg Tab.Sr.24h PO
[2022-05-03] MEDS: INSULIN ASPART (*BKC) 100 UNITS/ML SUB-Q (12:29)
--- NOTE | 2022-05-03 12:40 | PM.DS ---
DS: Admitting Diagnosis Discharge Date may 03 2022 Admitting Diagnosis neurogenic claudication, lumbar stenosis DS: Discharge Diagnosis Discharge Diagnosis (1) Lumbar stenosis with neurogenic claudication: Code(s): M48.062 - Spinal stenosis, lumbar region with neurogenic claudication Status: Acute Plan same DS: Summary Hospital Course Reason for hospitalization: had lumbar fusion surgery. durotomy encountered during surgery. Tolerated surgery well otherwise. Mobilized POD2 with no concerns for persistent CSF leak. Did have nausea/vomit/constipation and hyponatremia that improved. Discharged POD4. Has plans to follow-up with GI, history of recent pancreatitis. Hospital Course: had lumbar fusion surgery. durotomy encountered during surgery. Tolerated surgery well otherwise. Mobilized POD2 with no concerns for persistent CSF leak. Did have nausea/vomit/constipation and hyponatremia that improved. Discharged POD4. Has plans to follow-up with GI, history of recent pancreatitis. Status at Discharge Functional status at discharge: independent ambulation Time Spent with Patient Time attestation: Total time spent providing and/or coordinating discharge services: DS: Data Data Completed and Pending Labs on day of discharge: Labs from last 24 hours 05/03/22 05/03/22 05/03/22 12:16 08:59 05:31 WBC RBC Hgb Hct MCV MCH MCHC RDW Plt Count MPV Immature Gran % (Auto) Neut % (Auto) Lymph % (Auto) [place] % (Auto) Eos % (Auto) Baso % (Auto) Lymph # (Auto) [place] # (Auto) Eos # (Auto) Baso # (Auto) Abs Immat Gran (auto) Absolute Neuts (auto) Absolute Nucleated RBC Nucleated RBC % Sodium 133 L Potassium 3.4 Chloride 100 Carbon Dioxide 26 Anion Gap 7 L BUN 13 Creatinine 0.70 Estim Creat Clear Calc 127 Estimated GFR > 60 Glucose 138 H POC Capillary Glucose 224 H 173 H Calcium 8.2 L Total Bilirubin 0.8 AST 38 ALT 32 Alkaline Phosphatase 38 Total Protein 6.0 L Albumin 3.0 L Lipase 24 05/03/22 05/02/22 05/02/22 05:31 22:09 21:10 WBC 9.6 RBC 3.95 L Hgb 11.9 L Hct 34.9 L MCV 88.4 MCH 30.1 MCHC 34.1 RDW 12.9 Plt Count 278 MPV 10.6 H Immature Gran % (Auto) 0.5 Neut % (Auto) 66.5 Lymph % (Auto) 19.3 [place] % (Auto) 10.2 H Eos % (Auto) 3.0 Baso % (Auto) 0.5 Lymph # (Auto) 1.85 [place] # (Auto) 1.0 H Eos # (Auto) 0.3 Baso # (Auto) 0.1 Abs Immat Gran (auto) 0.05 H Absolute Neuts (auto) 6.4 Absolute Nucleated RBC 0.0 Nucleated RBC % 0.0 Sodium 130 L Potassium Chloride Carbon Dioxide Anion Gap BUN Creatinine Estim Creat Clear Calc Estimated GFR Glucose POC Capillary Glucose 150 H Calcium Total Bilirubin AST ALT Alkaline Phosphatase Total Protein Albumin Lipase 05/02/22 05/02/22 05/02/22 19:24 16:41 15:37 WBC RBC Hgb Hct MCV MCH MCHC RDW Plt Count MPV Immature Gran % (Auto) Neut % (Auto) Lymph % (Auto) [place] % (Auto) Eos % (Auto) Baso % (Auto) Lymph # (Auto) [place] # (Auto) Eos # (Auto) Baso # (Auto) Abs Immat Gran (auto) Absolute Neuts (auto) Absolute Nucleated RBC Nucleated RBC % Sodium 129 L 129 L Potassium Chloride Carbon Dioxide Anion Gap BUN Creatinine Estim Creat Clear Calc Estimated GFR Glucose POC Capillary Glucose 167 H Calcium Total Bilirubin AST ALT Alkaline Phosphatase Total Protein Albumin Lipase Discharge Plan Discharge Attending physician on discharge: Marky He Consulting providers: Tawana Talbot ; Benji Juarez Discharging Clinician: Pankaj Samaniego Patient Disposition: Home, Self-Care Activity: other - see discharge instructi
--- NOTE | 2022-05-03 12:43 | PM.IMPN ---
Progress Note: A&P Assessment and Plan (1) Lumbar stenosis with neurogenic claudication: Code(s): M48.062 - Spinal stenosis, lumbar region with neurogenic claudication Status: Acute Assessment and Plan: Postoperative day 4 status post L2-3 posterior lumbar interbody fusion for junctional stenosis. Appears to be recovering well. Wound care, pain control, and DVT prophylaxis deferred to primary team. (2) Postoperative nausea and vomiting: Code(s): R11.2 - Nausea with vomiting, unspecified; Z98.890 - Other specified postprocedural states Status: Acute Assessment and Plan: Patient has had indigestion, dyspepsia, and belching since being hospitalized last month for pancreatitis. Lipase normal but AST and TBili were elevated on admission. Repeat LFTs normal now. Continue omeprazole at discharge. KUB showing gaseous distention of the colon to the mid-sigmoid but abd exam now benign and +BMs; suspect mild ileus. GI was consulted. Symptoms have resolved. (3) Hyponatremia: Code(s): E87.1 - Hypo-osmolality and hyponatremia Status: Acute Assessment and Plan: Sodium was 140 on 04/23/22 and dropped to 126. Urine Na 51 but FENa 0.4%. Etiology felt related to dehydration, hypotonic fluids with SIADH from nausea and pain. Also was on HCTZ which has been held. TSH normal. Na better. Stop IVFs. (4) Dyspepsia: Code(s): R10.13 - Epigastric pain Status: Acute Assessment and Plan: Zofran available as needed. Continue PPI. Follow up with his GI doctor after discharge (5) Type 2 diabetes mellitus: Code(s): E11.9 - Type 2 diabetes mellitus without complications Status: Acute Assessment and Plan: We held his metformin as it may be causing GI upset on his empty stomach. Glucose remained well controlled. Continue AccuCheks covering with sliding scale. Hypoglycemia protocol available as needed. Continue to monitor (6) Hypertension: Code(s): I10 - Essential (primary) hypertension Status: Acute Assessment and Plan: Patient's blood pressure was reviewed on 05/03 Blood pressure remains well controlled. Suspect the 144/113 was measurement error since not consistent with other values. Repeat BP and will continue current medications. (7) Leukocytosis: Code(s): D72.829 - Elevated white blood cell count, unspecified Status: Acute Assessment and Plan: WBC was 22K. No evidence to suggest active infection. Probably stress response/inflammation from surgery. WBC normal now. Monitor. Subjective Date/time seen: 05/03/22 12:43 Interval history: 66yo male with DM, HTN and recent hosp for pancreatitis here for elective L2-3 laminectomy consulted for post-operative nausea. Patient has a slight headache this morning but much since yesterday. No nausea or vomiting. Tolerating oral intake. Positive bowel movements. Stomach cramping has improved. Back pain is well controlled. Exam Narrative: AF 97.2 144/116 62 18 96% ra Gen - NARD sittin gup in chair Chest - CTA bilaterally, nml RR CV - RRR S1/S2 Abd - Soft, NT/ND, +BS Back - midline vertical lumbar dressing clean, dry and intact Ext - No pedal edema Psych - Nml mood and affect Skin - Warm and dry Objective Data Vital Signs Vital Signs: Vital Signs - 24 hr 05/02/22 14:52 05/02/22 20:30 05/02/22 20:56 Temperature 98.0 F 97.8 F Pulse Rate 72 68 Respiratory Rate 18 21 H Blood Pressure 116/69 133/80 Pulse Oximetry 100 100 100 Oxygen Delivery Room Air 05/03/22 01:41 05/03/22 05:26 05/03/22 08:17 Temperature 98.3 F 97.2 F L Pulse Rate 64 62 Respiratory Rate 20 18 Blood Pressure 123/83 103/60 144/113 H Pulse Oximetry 98 96 Oxygen Delivery 05/03/22 09:00 Temperature Pulse Rate Respiratory Rate Blood Pressure Pulse Oximetry Oxygen Delivery Room Air Intake/Output Intake/Output: Intake & Output
[2022-05-03 13:03] VITALS: BP 97/65
[2022-05-05 13:45] LABS: Osmolality, Urine 494 mOsm/kg (50-1200)
== END 2022-05-03 14:20 | disposition home or self-care (01) | DRG 460 ==
LOC: ANH2MED 12:17
PROVIDERS: Internal Medicine; Physician Assistant; Admitting Provider Neurological Surgery; PCP Internal Medicine; Visit Provider Neurological Surgery
PROC: 0SG00AJ Fusion of Lumbar Vertebral Joint with Interbody Fusion Device, Posterior Approach, Anterior Column, Open Approach (ICD-10-PCS; CPT 22612; principal; 2022-04-29 07:30)
DX: M48.062 Spinal stenosis, lumbar region with neurogenic claudication (principal); G97.41 Accidental puncture or laceration of dura during a procedure; E87.1 Hypo-osmolality and hyponatremia; Z68.41 Body mass index [BMI] 40.0-44.9, adult; E66.01 Morbid (severe) obesity due to excess calories; Y83.8 Other surgical procedures as the cause of abnormal reaction of the patient, or of later complication, without mention of misadventure at the time of the procedure; Z98.1 Arthrodesis status; R11.2 Nausea with vomiting, unspecified; R10.13 Epigastric pain; D72.829 Elevated white blood cell count, unspecified; E11.9 Type 2 diabetes mellitus without complications; I10 Essential (primary) hypertension; M19.90 Unspecified osteoarthritis, unspecified site; Z79.899 Other long term (current) drug therapy; Z87.891 Personal history of nicotine dependence; Z90.79 Acquired absence of other genital organ(s)
CPT/HCPCS: 36415; 74018; 80048; 80053; 82570; 82948; 83036; 83690; 83735; 83930; 83935; 84295; 84300; 84443; 84540; 85025; 85027; 97110; 97116; 97161; 97165; 97530; 97535; 99199; A9270; C1713; C9113; J0131; J0330; J0690; J1170; J1815; J2250; J2405; J2704; J3010; J3480; J7030; J7120

== ENCOUNTER 2022-05-21 12:06 | Outpatient (CLI) | payer MEDICARE, OTHER, SELFPAY ==
--- NOTE | ~2022-05-21 | XR_ITS ---
Lumbosacral Spine: AP and lateral views Clinical History: Postoperative Findings: Posterior fusion hardware is present extending from L2 through L5, with bilateral rods and transpedicular screws present. Disc fusion devices are present at the L2-L3, L3-L4, and L4-L5 disc sp aces. There is 8 mm retrolisthesis of L4 over L5, and 3 mm anterolisthesis of L3 over L4. Probable as sociated laminectomy defects at L2, L3, and L4. Remaining disc spaces are preserved. The sacroiliac j oints are normally outlined. Impression: Posterior fusion from L2 through L5, with orthopedic hardware, disc fusion devices, and laminectomy d efects, as detailed above. 8 mm anterolisthesis of L4 over L5. 3 mm anterolisthesis of L3 over L4. Reviewed, dictated and finalized at location [] SYSTEMS ADMINISTRATOR Impression: Posterior fusion from L2 through L5, with orthopedic hardware, disc fusion ez chandler, and laminectomy defects, as detailed above. 8 mm anterolisthesis of L4 over L5. 3 mm anterolisthesis of L3 over L4.
== END 2022-05-21 12:07 | disposition home or self-care (01) ==
PROVIDERS: PCP Internal Medicine; Visit Provider Neurological Surgery
DX: Z98.890 Other specified postprocedural states (principal); Z98.1 Arthrodesis status
CPT/HCPCS: 72100

== ENCOUNTER 2025-02-21 07:59 | Outpatient (CLI) | payer MEDICARE, OTHER, SELFPAY ==
--- OUTSIDE RECORDS SUMMARY | 2025-02-21 08:45 | XMS_ITS | Encounter Summary ---
Author Organization [facility] Healthcare Address [address] [place] [address] Care Team Providers Care Wallpaperer Name Role Phone Dylan Samuel DPM Unavailable [phone] Marques Rowland MD Unavailable [phone] Marky He MD Unavailable [phone] Juju Bautista MD Unavailable [phone] Mg Keenan MD Unavailable [phone] Paul Fulton NP Unavailable [phone] Jose Adamson MD Primary Care Provider Encounter Details Date Type Department Care Team (Late st Contact Info) Description 01/29/2025 Results Follow-Up [facility] Medical Group Primary Care at [address] [address] Jose Adamson MD [address] [place] [address] [address] [place] [address] CBC without differential, Thyroid Function [place], Hemoglobin A1c, Additional followed-up results: 3 Social History Tobacco Use Types Packs/Day Years Used Date Smoking Tobacco: Former Cigarettes 0.5 10 1 08/02/1977 - 06/01/1988 Smokeless Tobacco: Never Alcohol Use Standard Drinks/Week Comments Not Currently 0 (1 standard drink = 0.6 oz pur e alcohol) AUDIT-C Answer Date Recorded Q1: How often do you have a drink containing alc ohol? Monthly or less 11/25/2024 Q2: How many drinks containi ng alcohol do you have on a typical day when you are drinking? 1 or 2 11/25/2024 Q3: How often do you have si x or more drinks on one occasion? 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 Results will be addressed and discussed in office visit with patient. documented in this encounter Plan of Treatment Not on file documented as of this encounter Visit Diagnoses Not on filedocumented in this encounter Care Teams Wallpaperer Relationship Specialty Start Date End Date Jose Adamson MD [address] [facility] [address] [place] [address] PCP - General Family Medicine 11/15/24 Dylan Samuel DPM [address] [place] [address] Consulting Physician Orthotics 09/20/21 Marques Rowland MD [address] [place] [address] Consulting Physician Gastroenterology 03/25/22 [place] [address] [place] [address] [place] [address] Consulting Physician Neurosurgery 07/18/22 Juju Bautista MD [address] [place] [address] Surgeon Anesthesiology 10/19/23 Mg Keenan MD [address] [facility] [id number] [place] [address] Consulting Physician Plastic Surgery 10/19/23 Paul Fulton NP [address] [facility] [place] [address] Nurse Practitioner Gastroenterology 10/25/24 documented as of this encounter
--- OUTSIDE RECORDS SUMMARY | 2025-02-21 08:45 | XMS_ITS | Encounter Summary ---
Author Organization [facility] Healthcare Address [address] [place] [address] Care Team Providers Care Aerodynamics Professor Name Role Phone Dylan Samuel DPM Unavailable [phone] Marques Rowland MD Unavailable [phone] Marky He MD Unavailable [phone] Juju Bautista MD Unavailable [phone] Mg Keenan MD Unavailable [phone] Paul Fulton NP Unavailable [phone] Jose Adamson MD Primary Care Provider Encounter Details Date Type Department Care Team (Latest Contact Info) Description 01/27/2025 Results Follow-Up [facility] Medical Group Gastroenterology at [address] [place] [address] Dee Padilla PA [address] [place] [address] [address] [place] [address] Hepatitis C (HCV) RNA PCR, quantitative Blood Social History Tobacco Use Types Packs/Day Years [...] points, staff should administer the PHQ-9) 0 01/27/2025 Personal Safety Answer Date Recorded Getting School Help Needed Denies 05/19 Sex and Gender Information Value Date Recorded Sex Assigned at Not on file Legal Sex Male 12:35 AM FROZEN FOOD DEPARTMENT MANAGER Gender Identity Male 04/03/2021 10:40 PM CDT Sexual Orientation Straight 05/29/2020 10 :35 AM FROZEN FOOD DEPARTMENT MANAGER 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 Answer Date of Assessment Author Monthly or less 01/27/2025 10:14 AM JYOTIT Elida Sheehan MA * Q2: How many drinks containing alcohol do you have on a typical day when you are drinking? Answer Date of Assessment Author 1 or 2 01/27/2025 10:14 AM Elida Estevez MA * Q3: How often do you have six or more drinks on one occasion? Answer Date of Assessment Author Never 01/27/2025 10:14 AM JYOTIT Elida Sheehan MA documented as of this encounter Plan of Treatment Not on file documented as of this encounter Visit Diagnoses Not on filedocumented in this encounter Care Teams Aerodynamics Professor Relationship Specialty [place] [address] [place] [address] [address] [place] [address] PCP - General Family Medicine 11/15/24 Dylan Samuel DPM [address] [place] [address] Consulting Physician Orthotics 09/20/21 Marques Rowland MD [address] [place] [address] Consulting Physician Gastroenterology 03/25/22 Marky He MD [address] [place] [address] Consulting Physician Neurosurgery 07/18/22 Juju Bautista MD [address] [facility] [place] [address] Surgeon Anesthesiology 10/19/23 Mg Keenan MD [address] [facility] [facility] [phone] [place] [address] Consulting Physician Plastic Surgery 10/19/23 Paul Fulton NP [address] [place] [address] [place] [address] Nurse Practitioner Gastroenterology 10/25/24 documented as of this encounter
--- OUTSIDE RECORDS SUMMARY | 2025-02-21 08:45 | XMS_ITS | Clinical Summary ---
Author Organization [facility] Address [address] [place] [address] Phone Care Team Providers Care Securities And Real Estate Director Name Role Phone Nicola Patel MD Primary Care Provider [phone] Allergies No known active allergies Medications tamsulosin (FLOMAX) 0.4 MG Capsule 0.4 mg. 02/07/2016 Active Potassium Gluconate 2.5 MEQ Tablet Take by mouth. Active oxybutynin (DITROPAN-XL) 10 MG TABLET SR 24 HR Take 10 mg by mouth. 07/18/2017 Active finasteride (PROSCAR) 5 MG Tablet 07/09/2020 Active lisinopril (PRINIVIL, ZESTRIL) 20 MG Tablet Take 20 mg by mouth. 06/12/2017 Active Active Problems No known active problems Social History Tobacco Use Types Packs/Day Years Used Date Smoking Tobacco: Former Smokeless Tobacco: Never Sexually Active Control Partners Comments Never Sex and Gender Information Value Date Recorded Sex Assigned at Not on file Legal Sex Male 9:06 PM CDT Gender Identity Not on file Sexual Orientation Not on file Last Filed Vital Signs Vital Sign Reading Time Taken Comments Blood Pressure 136/84 08/12/2020 1:31 PM COMMERCIAL DOOR INSTALLER Pulse 54 08/12/2020 1:31 PM COMMERCIAL DOOR INSTALLER Temperature 36.6 C (97.8 F) 08/12/2020 1:31 PM COMMERCIAL DOOR INSTALLER Respiratory Rate 18 08/12/2020 1:31 PM COMMERCIAL DOOR INSTALLER Oxygen Saturation 96% 08/12/2020 1:31 PM COMMERCIAL DOOR INSTALLER Inhaled Oxygen Concentration - - Weight 141.5 kg (312 lb) 08/12/2020 1:31 PM COMMERCIAL DOOR INSTALLER Height - - Body Mass Index - - Plan of Treatment Health Maintenance Due Date Last Done Comments Hepatitis C Virus (HCV) Screening 1955 TdaP Immunization 1955 Cologuard 11/19/2000 Colonoscopy 11/19/2000 Colorectal Cancer Screening 11/19/2000 Immunochemical Fecal Occult Blood 11/19/2000 Pneumococcal Immunization (5 0+ years) (2 of 2 - PCV) 03/29/2019 03/29/2018 Influenza Immunization (#1) 02/06/202503/09, 03/03/2019 SARS-COV-2 Immunization ( - 2024- season) 2025 03/26/2021, 08/01/2020, 07/11/2020 Respiratory Syncytial Virus (RSV) Immunization (Adult) (1 - 1-dose 75+ series) 11/19/2030 Pneumococcal Immunization Combined Discontinued 03/29/2018 Zoster Immunization Completed 03/26/2019, 12/31/2018 Hepatitis B Immunization Aged Out No longer eligible based on patient's age to complete this topic Human Papillomavirus (HPV) Immunization Aged Out No longer eligible based on patient's age to complete this topic Meningococcal Immunization (ACWY) Aged Out No longer eligible based on patient's age to complete this topic Rotavirus Immunization Aged Out No lo nger eligible based on patient's age to complete this topic Insurance Care Teams Securities And Real Estate Director Relationship Specialty Start Date End Date Nicola Patel MD PCP - General Internal Medicine 08/12/20
--- OUTSIDE RECORDS SUMMARY | 2025-02-21 08:45 | XMS_ITS | Encounter Summary ---
Author Organization Formerly [facility] Address [address] [place] [address] Care Team Providers Care Pier Master Name Role Phone Dylan Samuel DPM Unavailable [phone] Marques Rowland MD Unavailable [phone] Marky He MD Unavailable [phone] Jose Adamson MD Primary Care Provider Juju Bautista MD Unavailable [phone] Mg Keenan MD Unavailable [phone] Paul Fulton NP Unavailable [phone] Jose Adamson MD Primary Care Provider Encounter Details Date Type Department Care Team (Late st Contact Info) Description 03/22/2024 Orders Only [facility] Health Information Management [address] [place] [id number] Scanning, Provider Social History Tobacco Use Types Packs/Day Years Used Date Smoking Tobacco: Former Cigarettes 0.5 10 1 08/02/1977 - 06/01/1988 Smokeless Tobacco: Never Alcohol Use Standard Drinks/Week Comments Not Currently 0 (1 standard drink = 0.6 oz pur e alcohol) AUDIT-C Answer Date Recorded Q1: How often do you have a drink containing alcohol? Never 10/19/2023 Q2: How many drinks containi ng alcohol do you have on a typical day when you are drinking? Patient does not drink Q3: How often do you have si x or more drinks on one occasion? 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 Not on file Not on file Not on fi le documented as of this encounter Plan of Treatment Not on file documented as of this encounter Procedures Procedure Name Priority Date/Time Associated Diagnosis Comments SCAN - RADIOLOGY/IMAGING 03/22/2024 documented in this encounter Results * SCAN - RADIOLOGY/IMAGING (03/22/2024) Anatomical Region Laterality Modality Other us Provider Scanning Final Result documented in this encounter Visit Diagnoses Not on filedocumented in this encounter Care Teams Pier Master Relationship Specialty Start Date End Date Jose Adamson MD [address] [place] [address] PCP - General Family Medicine 10/19/23 11/14/24 Jose Adamson MD [facility] [address] [place] [address] PCP - General Family Medicine 11/15/24 Dylan Samuel DPM [address] [place] [address] Consulting Physician Orthotics 09/20/21 Marques Rowland MD [address] [place] [address] Consulting Physician Gastroenterology 03/25/22 [place] [address] [place] [address] [place] [address] Consulting Physician Neurosurgery 07/18/22 Juju Bautista MD [address] [place] [address] Surgeon Anesthesiology 10/19/23 Mg Keenan MD [address] [facility] [id number] [place] [address] Consulting Physician Plastic Surgery 10/19/23 Paul Fulton NP [address] [facility] [place] [address] Nurse Practitioner Gastroenterology 10/25/24 documented as of this encounter
--- OUTSIDE RECORDS SUMMARY | 2025-02-21 08:45 | XMS_ITS | Clinical Summary ---
Author Organization [facility] A Address [address] [place] [address] Care Team Providers Care Cap Inspector Name Role Phone Dylan Samuel DPM Unavailable [phone] Marques Rowland MD Unavailable [phone] Marky He MD Unavailable [phone] Juju Bautista MD Unavailable [phone] Mg Keenan MD Unavailable [phone] Paul Fulton NP Unavailable [phone] Jose Adamson MD Primary Care Provider Allergies No known active allergies Medications blood-glucose meter (ONETOUCH ULTRA SYSTEM KIT) kit test 1-2 times daily 1 kit 0 03/16/20 14 Active omeprazole (PriLOSEC) 20 mg capsule Take 1 capsule (20 mg total) by mouth daily as needed Take as needed Active multivitamin capsule Take 1 capsule by mouth daily Active aspirin 81 mg enteric coated tablet Take 1 tablet (81 mg total) by mouth daily 30 tablet 11 08/16/19 23 Active cyanocobalamin (Vitamin B-12) 500 mcg tabletIndicatio ns:Prevention of Vitamin B12 Deficiency Take 1 tablet (500 mcg total) by mouth daily 90 tablet 3 04/25/20 24 025 Active cyclobenzaprine (FLEXERIL) 10 mg tablet Take 1 tablet (10 mg total) by mouth 2 (two) times a day as needed for muscle spasms for muscle spasms 180 tablet 06/10/19 25 Active blood glucose diagnostic (OneTouch Ultra Test) stripIndication s:Type 2 diabetes mellitus without complication, without long-term current use of insulin ([facility]) USE 1 STRIP TO CHECK GLUCOSE ONCE DAILY 100 each 1 11/16/19 25 Active lancets (onetouch ultrasoft) miscIndications :Type 2 diabetes mellitus without complication, without long-term current use of insulin ([facility]) Use to check blood sugar once daily 100 each 1 12/03/19 25 Active hydroCHLOROthia zide (HYDRODIURIL) 25 mg tablet Take 1 tablet by mouth once daily 100 tablet 12/13/19 25 Active amLODIPine (NORVASC) 2.5 mg tablet Take 1 tablet by mouth once daily 90 tablet 1 01/10/20 25 Active metFORMIN XR (GLUCOPHAGE XR) 500 mg 24 hr tabletIndicatio ns:Diabetes mellitus due to underlying condition with hyperglycemia, unspecified whether superintendent terminal insulin use ([facility]) TAKE 4 TABLETS BY MOUTH ONCE DAILY WITH BREAKFAST 360 tablet 01/31/20 25 Active tirzepatide (MOUNJARO) 7.5 mg/0.5 mL pen injector injectionIndica tions:type 2 diabetes mellitus Inject 0.5 mL (7.5 mg total) under the skin once a week 2 mL 2 02/02/20 25 Active lisinopriL (PRINIVIL,ZESTR [place]) 40 mg tablet Take 1 tablet by mouth once daily 100 tablet 02/18/20 25 Active lisinopriL (PRINIVIL,ZESTR IL) 40 mg tablet Take 1 tablet by mouth once daily 100 tablet 1 08/11/19 25 025 Discontinued tirzepatide (Mounjaro) 5 mg/0.5 mL pen injector injectionIndica tions:Type 2 diabetes mellitus without complication, without long-term current use of insulin ([facility]) Inject 0.5 mL (5 mg total) under the skin once a week 2 mL 2 11/26/19 25 025 Discontinued metFORMIN XR (GLUCOPHAGE XR) 500 mg 24 hr tabletIndicatio ns:Diabetes mellitus due to underlying condition with hyperglycemia, unspecified whether superintendent terminal insulin use ([facility]) TAKE 4 TABLETS BY MOUTH ONCE DAILY WITH BREAKFAST 360 tablet 11/02/19 25 025 Discontinued glipiZIDE XL (GLUCOTROL XL) 5 mg 24 hr tabletIndicatio ns:Diabetes mellitus due to underlying condition with hyperglycemia, without long-term current use of insulin ([facility]) Take 1 tablet by mouth once daily 90 tablet 11/08/19 25 025 Discontinued(Th erapy completed) Active Problems Problem Noted Date Diagnosed Date Hepatitis C virus infection cured after antiviral drug therapy 04/25/2024 Overview (10/25/2024): Following with GI Assessment & Plan (02/01/2025 11:13 AM CDT): - found on screening testing on 04/2024 - obtain US liver, order placed - most recent LFts normal, as shown below - referred and established with Gi and underwent Epclusa - has f/u lab work to confirm cure in 3 months - Recommend hepatitis-B vaccination once he is cleared of hepatitis-C US Liver 05/01 FINDINGS: The gallbladder has been removed. The liver is normal in size and echogenicity. No focal hepatic lesion is seen. No evidence of intrahepatic bile duct dilatation. The common bile duct is normal and measures 3 mm in diameter. Color Doppler imaging of the portal vein shows normal blood flow. IMPRESSION: 1. Cholecystectomy. 2. The liver and bile ducts appear normal. 3. No evidence of ascites. Electronically signed by: Ari Farrell M.D. Lab Results Component Value Date ALT 27 01/26/2025 AST 18 01/26/2025 ALKPHOS 62 01/26/2025 BILITOT 0.5 01/26/2025 Assessment & Plan (10/25/2024 12:21 PM CDT): - found on screening testing on 04/2024 - obtain US liver, order placed - most recent LFts normal, as shown below - referral placed to GI and finishing his dose of Epclusa - has f/u lab work to confirm cure - Recommend hepatitis-B vaccination once he is cleared of hepatitis-C US Liver 05/01 FINDINGS: The gallbladder has been removed. The liver is normal in size and echogenicity. No focal hepatic lesion is seen. No evidence of intrahepatic bile duct dilatation. The common bile duct is normal and measures 3 mm in diameter. Color Doppler imaging of the portal vein shows normal blood flow. IMPRESSION: 1. Cholecystectomy. 2. The liver and bile ducts appear normal. 3. No evidence of ascites. Electronically signed by: Ari Farrell M.D. Lab Results Component Value Date ALT 13 10/12/2024 AST 13 10/12/2024 ALKPHOS 59 10/12/2024 BILITOT 0.5 10/12/2024 Assessment & Plan (04/25/2024 12:07 PM CERTIFIED DIETARY MANAGER): - new diagnosis - found on screening testing - obtain US liver, order placed - most recent LFts normal, as shown below - referral placed to GI Lab Results Component Value Date ALT 40 04/05/2024 AST 31 04/05/2024 ALKPHOS 56 04/05/2024 BILITOT 0.8 04/05/2024 Low vitamin B12 level 04/25/2024 Assessment & Plan (10/25/2024 11:00 AM CDT): - Chronic condition, improved - has T2DM and is on metformin - on vitamin B12 500 mcg daily, script sent in - Most recent labs as shown below, continue current management Lab Results Component Value Date VITB12 655 10/12/2024 Assessment & Plan (04/25/2024 5:22 PM CERTIFIED DIETARY MANAGER): - new diagnosis - has T2DM and is on metformin - start vitamin B12 500 mcg daily, script sent in Lab Results Component Value Date VITB12 303 04/05/2024 History of fusion of lumbar spine 10/19/2023 Overview (02/01/2025): Follows with pain management and [facility] istory of lumbar spinal fusion from L3-L4 by Dr. He in August of 2018 L4-L5 - in 2015 L3-L4 - in 2019 L2-L3 - in 2021 Assessment & Plan (02/01/2025 11:18 AM CDT): - chronic condition, not at goal, persistent pain that is affecting quality of life - follows with Dr. He - hx of lumbar fusion surgeries as shown below L4-L5 - in 2016 L3-L4 - in 2019 L2-L3 - in 2021 - not on any medication currently - follows with Dr. He as needed who is his surgeon and has follow up on 02/2025 - he is also on Cyclobenzaprine 10 mg nightly PRN only 2-3 times a week - established with pain manageement and has got steroid injections with limited effect - continue current management with pain management but has been frustrated as they are not willing to prescribe pain medication, and he has already had enough injection for this year and wont be covered for another until about March 2025 - referral placed to pain management at [facility] MRI lumbar spine without contrast 03/2024 (scanned in file) L2-L5 fusion and decompression with posterior instrumentation. There is a 3.5 x 3 x 1.4 cm seroma and the laminectomy site at L2-L3 and L3 levels. No spinal canal stenosis in the fusion site. 2. Disc bulge and disc protrusion with facet arthropathy/hypertrophy at L1-L2 and L5-S1 resulting in moderate to severe foraminal stenosis at both levels, more severe at L1-L2 with mild lateral spinal canal stenosis at this level as described above. 3. Diffuse endplate marrow edema likely related to discogenic degenerative process at L1-L2 Assessment & Plan (10/25/2024 11:15 AM CDT): - chronic condition, not at goal, persistent pain - follows with Dr. He - hx of lumbar fusion surgeries as shown below L4-L5 - in 2016 L3-L4 - in 2019 L2-L3 - in 2021 - not on any medication currently, still has some Hydrocodone 7.5 at night that he was prescribed 2021 that he uses PRN from remote past from pain management - only follows with Dr. He as needed - he is also on Cyclobenzaprine 10 mg nightly PRN only 2-3 times a week - established with pain manageement and gets steroid injections - continue current management with pain but frustrated as they are not willing to prescribe pain medication, and he has already had enough injection for this year and wont be covered for another until about March 2025 MRI lumbar spine without contrast 03/2024 (scanned in file) L2-L5 fusion and decompression with posterior instrumentation. There is a 3.5 x 3 x 1.4 cm seroma and the laminectomy site at L2-L3 and L3 levels. No spinal canal stenosis in the fusion site. 2. Disc bulge and disc protrusion with facet arthropathy/hypertrophy at L1-L2 and L5-S1 resulting in moderate to severe foraminal stenosis at both levels, more severe at L1-L2 with mild lateral spinal canal stenosis at this level as described above. 3. Diffuse endplate marrow edema likely related to discogenic degenerative process at L1-L2 Assessment & Plan (04/25/2024 11:59 AM CERTIFIED DIETARY MANAGER): - chronic condition, stable - follows with Dr. He - hx of lumbar fusion surgeries as shown below L4-L5 - in 2015 L3-L4 - in 2019 L2-L3 - in 2021 - not on any medication currently, still has some Hydrocodone 7.5 at night that he was prescribed 2021 that he uses PRN from remote past from pain management - only follows with Dr. He as needed - he is also on Cyclobenzaprine 10 mg nightly PRN only 2-3 times a week - established with pain manageement and gets steroid injections - continue current management Assessment & Plan (10/19/2023 12:00 PM CDT): - chronic condition, stable - follows with Dr. He - hx of lumbar fusion surgeries as shown below L4-L5 - in 2015 L3-L4 - in 2019 L2-L3 - in 2021 - not on any medication currently, still has some Hydrocodone 7.5 at night that he was prescribed 2021 that he uses PRN from remote past from pain management - only follows with Dr. He as needed - he is also on Cyclobenzaprine 10 mg nightly PRN only 2-3 times a week - continue current management Primary insomnia 10/19/2023 Assessment & Plan (04/25/2024 11:46 AM CERTIFIED DIETARY MANAGER): - chronic condition, stable status - takes melatonin at night for sleep initiation - has back disease and also takes Flexeril at night from time to time - also gets leg cramps - continue current management Assessment & Plan (10/19/2023 12:05 PM CDT): - chronic condition, stable status - takes melatonin at night for sleep initiation - has back disease and also takes Flexeril at night from time to time - also gets leg cramps - continue current management Cervical myelopathy 03/29/2023 Assessment & Plan (10/19/2023 1:47 PM CDT): - chronic, improved - Continue to follow-up with his neurosurgeon/plastic surgeon/brush painter as they direct - he used to see pain management, last seen in 2022 an had injection in his cervical spine - his rigth hand had weakness, dr. He recommended that he wear a neck brace and use a neck stretching machine which he did and it did seem like it got better. He has noticed increased strength in his right hand/arm. MRI Cervical spine 10/28 IMPRESSION: Exam limited by excessive patient motion artifact on both sagittal and axial images. Within limitation, there is multilevel cervical spondylosis with spinal canal narrowing most evident at C6-7 with ventral and dorsal CSF effacement but no definite cord impingement. Multilevel foraminal narrowing, most evident on the left at C2-3, C6-7 and C7-T1. Please correlate with radiculopathy symptoms. Assessment & Plan (05/10/2023 7:26 PM CERTIFIED DIETARY MANAGER): Continue to follow-up with his neurosurgeon/plastic surgeon/brush painter as they direct Assessment & Plan (03/29/2023 9:09 PM CDT): Follow-up with his neurosurgeon, plastic surgeon, pain management as they direct. Non-alcoholic fatty liver disease 04/27/2022 Assessment & Plan (04/27/2022 8:32 PM CERTIFIED DIETARY MANAGER): Secondary to diabetes and obesity. Liver function normal at this time. Of course there is risk of progression. Should check his liver enzymes every 6 months and follow liver function. Type 2 diabetes mellitus wit hout complication, without long-term current use of insulin 03/20/2022 Assessment & Plan (02/01/2025 11:13 AM CDT): Chronic condition which well controlled, improved and at goal of A1c <6.5 Initial diagnosis - 10-15 years ago Reviewed most recent A1c today- as shown below Lab Results Component Value Date HGBA1C 5.9 (H) 01/26/2025 HGBA1C 6.6 (H) 10/12/2024 HGBA1C 6.6 (H) 04/05/2024 Medications Currently on Metformin XR 2000 mg daily and Glipizide XL 5 mg daily Jardiance was too expensive He has tried Ozempic by prior PCP --> states he ended up in hospital and had pancreatitis Currently on Mounjaro 5 mg weekly injections which was started on prior visit, has had weight loss has also had improvement in terms of his A1c as shown above Discontinue glipizide extended release 5 mg daily, continue metformin XR 2000 mg daily at this time and increase Mounjaro to 7.5 mg weekly injections Monitor blood sugar 1 times a day. Personally reviewed blood sugar logs Maintenance Diabetic (Monofilament) foot exam - up to date, follows with Podiatry Dr. Samuel, requesting records Annual dilated eye exams. Up to date Annual Urine microalbumin/creatinine ratio - up to date Lab Results Component Value Date ALBCREATRATU <10 10/12/2024 BP management B/P today- well controlled Patient is currently is on an LENORA/ARB. Goal blood pressure is <140/90, long-term blood pressure goal is to be as close to 120/80 as possible. Dyslipidemia management Personally reviewed most recent LDL as shown below. Patient is not on a Cholesterol lowering medication. Goal of less than 70 Lab Results Component Value Date LDLCALC 84 01/26/2025 LDLCALC 93 10/12/2024 LDLCALC 64 03/20/2022 Discussed labs/ordered labs that have been ordered if applicable. Discussed eating a healthy low carb diet, include fresh fruits and vegetables daily. Diabetic education and nutritional counseling available if you have not had this before or annually. Encouraged to try moving at least a total of 30 minutes/day. Just move more. Instructed to wash, dry, lotion and check feet daily. Instructed to notify office if blood sugars are less than 80 or greater than 250 for 3 days Orders: tirzepatide (MOUNJARO) 7.5 mg/0.5 mL pen injector injection; Inject 0.5 mL (7.5 mg total) under the skin once a week Assessment & Plan (10/25/2024 12:23 PM CDT): Chronic condition which well controlled, stable Initial diagnosis - 10-15 years ago Reviewed most recent A1c today- as shown below Lab Results Component Value Date HGBA1C 6.6 (H) 10/12/2024 HGBA1C 6.6 (H) 04/05/2024 HGBA1C 8.0 (H) 10/17/2023 Medications Currently on Metformin XR 2000 mg daily and Glipizide XL 5 mg daily Jardiance was too expensive He has tried Ozempic by prior PCP --> states he ended up in hospital and had pancreatitis, he starts noticing lower blood glucose readings discussed to discontinue glipizide XL 5 mg daily medication Start Mounjaro 2.5 mg weekly injection (shared decision-making regarding risk for pancreatitis) Monitor blood sugar 1 times a day. Personally reviewed blood sugar logs Maintenance Diabetic (Monofilament) foot exam - up to date, follows with Podiatry Dr. Samuel, requesting records Annual dilated eye exams. Up to date Annual Urine microalbumin/creatinine ratio - Lab Results Component Value Date ALBCREATRATU <10 10/12/2024 BP management B/P today- well controlled Patient is currently is on an LENORA/ARB. Goal blood pressure is <140/90, long-term blood pressure goal is to be as close to 120/80 as possible. Dyslipidemia management Personally reviewed most recent LDL as shown below. Patient is not on a Cholesterol lowering medication. Goal of less than 70 Lab Results Component Value Date LDLCALC 93 10/12/2024 LDLCALC 64 03/20/2022 Discussed labs/ordered labs that have been ordered if applicable. Discussed eating a healthy low carb diet, include fresh fruits and vegetables daily. Diabetic education and nutritional counseling available if you have not had this before or annually. Encouraged to try moving at least a total of 30 minutes/day. Just move more. Instructed to wash, dry, lotion and check feet daily. Instructed to notify office if blood sugars are less than 80 or greater than 250 for 3 days Assessment & Plan (04/25/2024 11:58 AM CERTIFIED DIETARY MANAGER): Chronic condition which well controlled, improved Initial diagnosis - 10-15 years ago Reviewed most recent A1c today- as shown below Lab Results Component Value Date HGBA1C 6.6 (H) 04/05/2024 HGBA1C 8.0 (H) 10/17/2023 HGBA1C 6.8 (H) 03/30/2023 Medications Currently on Metformin XR 2000 mg daily and Glipizide XL 5 mg dily Jardiance was too expensive He has tried Ozempic by prior PCP --> states he ended up in hospital and had pancreatitis Prior to trying Ozempic he was on another medication 0 Monitor blood sugar 1 times a day. Personally reviewed blood sugar logs Maintenance Diabetic (Monofilament) foot exam - up to date Annual dilated eye exams. Up to date Annual Urine microalbumin/creatinine ratio - No results found for: ALBCREATRATU BP management B/P today- well controlled Patient is currently is on an LENORA/ARB. Goal blood pressure is <140/90, long-term blood pressure goal is to be as close to 120/80 as possible. Dyslipidemia management Personally reviewed most recent LDL as shown below. Patient is not on a Cholesterol lowering medication. Goal of less than 70 Lab Results Component Value Date LDLCALC 64 03/20/2022 Discussed labs/ordered labs that have been ordered if applicable. Discussed eating a healthy low carb diet, include fresh fruits and vegetables daily. Diabetic education and nutritional counseling available if you have not had this before or annually. Encouraged to try moving at least a total of 30 minutes/day. Just move more. Instructed to wash, dry, lotion and check feet daily. Instructed to notify office if blood sugars are less than 80 or greater than 250 for 3 days Assessment & Plan (10/19/2023 12:31 PM CDT): Chronic condition which is not at goal Initial diagnosis - 10-15 years ago Reviewed most recent A1c today- as shown below Lab Results Component Value Date HGBA1C 8.0 (H) 10/17/2023 HGBA1C 6.8 (H) 03/30/2023 HGBA1C 6.5 (H) 11/19/2022 Medications Currently on Metformin XR 1500 mg daily --> increase to metformin XR 2000 mg daily Start Jardiance 10 mg daily He has tried Ozempic by prior PCP --> states he ended up in hospital and had pancreatitis Prior to trying Ozempic he was on another medication 0 Monitor blood sugar 1 times a day. Personally reviewed blood sugar logs Maintenance Diabetic (Monofilament) foot exam - up to date Annual dilated eye exams. Up to date Annual Urine microalbumin/creatinine ratio - No results found for: ALBCREATRATU BP management B/P today- well controlled Patient is currently is on an LENORA/ARB. Goal blood pressure is <140/90, long-term blood pressure goal is to be as close to 120/80 as possible. Dyslipidemia management Personally reviewed most recent LDL as shown below. Patient is not on a Cholesterol lowering medication. Goal of less than 70 Lab Results Component Value Date LDLCALC 64 03/20/2022 Discussed labs/ordered labs that have been ordered if applicable. Discussed eating a healthy low carb diet, include fresh fruits and vegetables daily. Diabetic education and nutritional counseling available if you have not had this before or annually. Encouraged to try moving at least a total of 30 minutes/day. Just move more. Instructed to wash, dry, lotion and check feet daily. Instructed to notify office if blood sugars are less than 80 or greater than 250 for 3 days History of nonmelanoma skin cancer 01/06/2022 Assessment & Plan (10/19/2023 12:07 PM CDT): - has hx of squamous cell carcinoma in situ - follows with dermatology but he does not, he was last seen by plastic surgery - he does not have a litigation attorney Pes anserinus bursitis of right knee 08/09/2021 Primary osteoarthritis of right knee 06/27/2021 Primary osteoarthritis of left hip 06/25/2021 Morbid obesity with BMI of 40.0-44.9, adult 12/2020 Assessment & Plan (02/01/2025 11:13 AM CDT): Wt Readings from Last 3 Encounters: 02/01/25 131.2 kg (289 lb 3.2 oz) 11/25/24 (!) 137.7 kg (303 lb 9.6 oz) 10/25/24 (!) 140.8 kg (310 lb 4.8 oz) Body mass index is 39.22 kg/m . - chronic condition, not at goal, improved, 20+ lbs weight loss noted with weight loss noted since he has been on his appetite for his diabetes - BMI Follow-up includes: nutrition counseling, exercise counseling and education provided - Recommend to exercise at least 30 minutes moderate to vigorous exercise most days of the week. (minimum 150 minutes weekly) - Co-morbidities - DM2, hypertension The current medical regimen is effective; continue present plan and medications. Assessment & Plan (10/25/2024 11:00 AM CDT): Wt Readings from Last 3 Encounters: 10/25/24 (!) 140.8 kg (310 lb 4.8 oz) 07/27/24 (!) 138.9 kg (306 lb 3.2 oz) 06/02/24 133.8 kg (295 lb) Body mass index is 40.94 kg/m . - chronic condition, not at goal, worse, small weight gain noted - BMI Follow-up includes: nutrition counseling, exercise counseling and education provided - Recommend to exercise at least 30 minutes moderate to vigorous exercise most days of the week. (minimum 150 minutes weekly) - Co-morbidities - DM2, hypertension Assessment & Plan (04/25/2024 11:46 AM CERTIFIED DIETARY MANAGER): Wt Readings from Last 3 Encounters: 04/25/24 (!) 136.5 kg (301 lb) 10/19/23 (!) 138.3 kg (305 lb) 04/20/23 136.1 kg (300 lb) Body mass index is 40.81 kg/m . - chronic condition, not at goal, worse, weight gain noted - BMI Follow-up includes: nutrition counseling, exercise counseling and education provided - Recommend to exercise at least 30 minutes moderate to vigorous exercise most days of the week. (minimum 150 minutes weekly) - Co-morbidities - DM2, hypertension Assessment & Plan (10/19/2023 12:01 PM CDT): Wt Readings from Last 3 Encounters: 10/19/23 (!) 138.3 kg (305 lb) 04/20/23 136.1 kg (300 lb) 04/16/23 135.4 kg (298 lb 6.4 oz) Body mass index is 41.36 kg/m . - chronic condition, not at goal, worse, weight gain noted - BMI Follow-up includes: nutrition counseling, exercise counseling and education provided - Recommend to exercise at least 30 minutes moderate to vigorous exercise most days of the week. (minimum 150 minutes weekly) - Co-morbidities - DM2, hypertension Assessment & Plan (05/10/2023 7:25 PM CERTIFIED DIETARY MANAGER): Patient is encouraged to lose weight with a combination of caloric reduction and increased exercise. Various strategies discussed. The long-term risks associated with continued morbid obesity discussed. Assessment & Plan (01/23/2022 7:47 AM CDT): Patient is encouraged to lose weight with a combination of caloric reduction and increased exercise. Various strategies discussed. The long-term risks associated with continued morbid obesity discussed. Assessment & Plan (10/19/2021 7:43 PM CDT): Patient is encouraged to lose weight with a combination of caloric reduction and increased exercise. Various strategies discussed. The long-term risks associated with continued morbid obesity discussed. Assessment & Plan (06/07/2021 11:07 AM CERTIFIED DIETARY MANAGER): Patient is encouraged to lose weight with a combination of caloric reduction and increased exercise. Various strategies discussed. The long-term risks associated with continued morbid obesity discussed. Assessment & Plan (04/08/2021 10:22 AM CDT): Patient is encouraged to lose weight with a combination of caloric reduction and increased exercise. Various strategies discussed. The long-term risks associated with continued morbid obesity discussed. Assessment & Plan (11/13/2020 5:06 PM CDT): Patient is encouraged to lose weight with a combination of caloric reduction and increased exercise. Various strategies discussed. The long-term risks associated with continued morbid obesity discussed. Assessment & Plan (10/12/2020 10:02 AM CDT): Patient is encouraged to lose weight with a combination of caloric reduction and increased exercise. Various strategies discussed. The long-term risks associated with continued morbid obesity discussed. Muscle spasms of both lower extremities 03/03/20 Assessment & Plan (03/03/2019 4:08 PM CDT): Increase hydration. Restart his potassium supplementation. He declines repeat magnesium and potassium levels. Try to stay out of the heat. Lower extremities stretching exercises recommended. Decrease furosemide to every other day. If swelling does not increase, decrease to every 3rd day. Thereafter try just as needed. Add Theraworx at that time if no improvement. Final, would recommend repeat neurological evaluation with Dr. He. If no neurological cause found, could consider lower extremity ABIs. Bradycardia 08/31/2018 Assessment & Plan (10/19/2023 1:45 PM CDT): - reports chronic bradycardia, stable - in past has been evaluated by prior PCP as well - asymptomatic with it - ongoing for over 5 years per chart review - reviewed prior ECG Assessment & Plan (08/31/2018 3:40 PM CDT): Marked bradycardia however this is somewhat chronic for Pt. He does remains asymptomatic. In further review, it does not appear as though ordered any additional testing including electrolytes prior to upcoming surgery, I did encourage Pt to complete a panel checking electrolytes including magnesium as well as TSH looking further into the bradycardia. After discussing his case with Dr. Patel, the labs above were ordered and I encouraged Pt to F/U here in the next 3 weeks after surgery in order to discuss ordering a Holter monitor or consultation to electrophysiology certainly if indicated. Varicose veins of both lower extremities 018 Assessment & Plan (10/19/2023 1:46 PM CDT): - chronic condition, stable status - asymptomatic - right leg > left leg in terms of varicose veins - has morbid obesity - has associated stasis dermatitis, recommend using compression socks - continue current management Assessment & Plan (04/22/2018 11:02 PM CERTIFIED DIETARY MANAGER): Vascular referral when needed. Rotator cuff tear arthropathy of right shoulder 03/19/2018 Overview (03/19/2018): Shoulder replacement offered, declined. Using injections prn. Overactive bladder 05/25/2017 Assessment & Plan (04/09/2019 1:33 PM CDT): Well controlled on oxybutynin. Assessment & Plan (08/31/2018 3:40 PM CDT): Asymptomatic while taking Ditropan. Pt was encouraged to Cnt. Current medication follow-up in the interim with any additional concerns Assessment & Plan (04/22/2018 11:02 PM CERTIFIED DIETARY MANAGER): Continue oxybutynin. Assessment & Plan (06/22/2017 11:22 PM CERTIFIED DIETARY MANAGER): Continue oxybutynin. Assessment & Plan (05/25/2017 9:16 PM CERTIFIED DIETARY MANAGER): Well controlled on oxybutynin. Hypertension associated with type 2 diabetes daysi litus 03/16/2017 Assessment & Plan (02/01/2025 11:13 AM CDT): Blood Pressure Management BP Readings from Last 3 Encounters: 02/01/25 126/74 11/25/24 146/71 10/25/24 128/78 Chronic condition Status - is adequately controlled. Current medications are: Lisinopril 40 mg daily, HCTZ 25 mg daily, Amlodipine 2.5 mg daily Patient is compliant with medications. Patient denies any side effects or adverse side effects from the medication/s. Follow a low salt diet Monitor blood pressure regularly at home The current medical regimen is effective; continue present plan and medications. The 10-year ASCVD risk score (Skye MONROY, et al., 2019) is: 33.3% Values used to calculate the score: Age: 69 years Clincally relevant sex: Male Is Non- : No Diabetic: Yes Tobacco smoker: No Systolic Blood Pressure: 126 mmHg Is BP treated: Yes HDL Cholesterol: 36 mg/dL Total Cholesterol: 148 mg/dL Lab Results Component Value Date LDLCALC 84 01/26/2025 Lab Results Component Value Date GLUCOSE 109 01/26/2025 CALCIUM 9.3 01/26/2025 SODIUM 139 01/26/2025 POTASSIUM 4.5 01/26/2025 CO2 22 01/26/2025 CHLORIDE 106 01/26/2025 BUNSER 25 01/26/2025 CREATININE 1.04 01/26/2025 Assessment & Plan (10/25/2024 10:59 AM CDT): Blood Pressure Management BP Readings from Last 3 Encounters: 10/25/24 128/78 07/27/24 143/87 06/02/24 118/66 Chronic condition Status - is adequately controlled. Current medications are: Lisinopril 40 mg daily, HCTZ 25 mg daily, Amlodipine 2.5 mg daily Patient is compliant with medications. Patient denies any side effects or adverse side effects from the medication/s. Follow a low salt diet Monitor blood pressure regularly at home The current medical regimen is effective; continue present plan and medications. The 10-year ASCVD risk score (Skye MONROY, et al., 2019) is: 28.8% Values used to calculate the score: Age: 68 years Sex: Male Is Non- : No Diabetic: Yes Tobacco smoker: No Systolic Blood Pressure: 128 mmHg Is BP treated: Yes HDL Cholesterol: 53 mg/dL Total Cholesterol: 168 mg/dL Lab Results Component Value Date LDLCALC 93 10/12/2024 Lab Results Component Value Date GLUCOSE 116 10/12/2024 CALCIUM 9.2 10/12/2024 SODIUM 139 10/12/2024 POTASSIUM 4.3 10/12/2024 CO2 24 10/12/2024 CHLORIDE 103 10/12/2024 BUNSER 18 10/12/2024 CREATININE 0.91 10/12/2024 Assessment & Plan (04/25/2024 12:12 PM CERTIFIED DIETARY MANAGER): Blood Pressure Management BP Readings from Last 3 Encounters: 04/25/24 110/68 10/19/23 118/70 04/20/23 110/78 Chronic condition Status - is adequately controlled. Current medications are: Lisinopril 40 mg daily, HCTZ 25 mg daily, Amlodipine 5 mg daily --> lower amlodipine to 2.5 mg daily and monitor BP Patient is compliant with medications. Patient denies any side effects or adverse side effects from the medication/s. Follow a low salt diet Monitor blood pressure regularly at home Continue current management unless change made above The 10-year ASCVD risk score (Skye MONROY, et al., 2019) is: 23.4% Values used to calculate the score: Age: 68 years Sex: Male Is Non- : No Diabetic: Yes Tobacco smoker: No Systolic Blood Pressure: 110 mmHg Is BP treated: Yes HDL Cholesterol: 47 mg/dL Total Cholesterol: 159 mg/dL Lab Results Component Value Date LDLCALC 64 03/20/2022 Lab Results Component Value Date GLUCOSE 142 (H) 04/05/2024 CALCIUM 9.4 04/05/2024 SODIUM 138 04/05/2024 POTASSIUM 4.5 04/05/2024 CO2 27 04/05/2024 CHLORIDE 105 04/05/2024 BUNSER 29 (H) 04/05/2024 CREATININE 0.99 04/05/2024 Assessment & Plan (10/19/2023 12:02 PM CDT): Blood Pressure Management BP Readings from Last 3 Encounters: 10/19/23 118/70 04/20/23 110/78 04/16/23 129/73 Chronic condition Status - is adequately controlled. Current medications are: Lisinopril 40 mg daily, HCTZ 25 mg daily, Amlodipine 5 mg daily Patient is compliant with medications. Patient denies any side effects or adverse side effects from the medication/s. Follow a low salt diet Monitor blood pressure regularly at home Continue current management unless change made above The ASCVD Risk score (Skye MONROY, et al., 2019) failed to calculate for the following reasons: The valid total cholesterol range is 130 to 320 mg/dL Lab Results Component Value Date LDLCALC 64 03/20/2022 Lab Results Component Value Date GLUCOSE 135 (H) 03/30/2023 CALCIUM 9.4 03/30/2023 SODIUM 138 03/30/2023 POTASSIUM 5.1 03/30/2023 CO2 27 03/30/2023 CHLORIDE 104 03/30/2023 BUNSER 22 03/30/2023 CREATININE 1.02 03/30/2023 Assessment & Plan (05/10/2023 7:25 PM CERTIFIED DIETARY MANAGER): Pressure well controlled on amlodipine, hydrochlorothiazide, lisinopril Assessment & Plan (03/29/2023 9:06 PM CDT): Blood pressure well controlled on amlodipine, hydrochlorothiazide, lisinopril Assessment & Plan (09/22/2022 1:59 PM CDT): Controlled with medication - continue treatment plan per PCP Assessment & Plan (08/15/2022 11:47 AM CERTIFIED DIETARY MANAGER): Blood pressure well controlled on amlodipine, hydrochlorothiazide, lisinopril Assessment & Plan (05/05/2022 1:53 PM CERTIFIED DIETARY MANAGER): Well controlled on the current regimen. Avoidance of salt, proper body weight, and routine exercise recommended. Assessment & Plan (01/23/2022 7:45 AM CDT): Well controlled on the current regimen. Avoidance of salt, proper body weight, and routine exercise recommended. Assessment & Plan (10/19/2021 7:42 PM CDT): Well controlled on the current regimen. Avoidance of salt, proper body weight, and routine exercise recommended. Assessment & Plan (06/20/2021 10:18 AM CERTIFIED DIETARY MANAGER): Recommend DASH diet, heart-healthy lifestyle, exercise. Discussed the risks of hypertension. Assessment & Plan (06/07/2021 11:06 AM CERTIFIED DIETARY MANAGER): Add amlodipine 5 mg daily. Continue lisinopril but stop Bystolic. Low-salt diet increased exercise lose weight. Call back with an update in a few weeks. Assessment & Plan (04/08/2021 10:20 AM CDT): Add generic Bystolic 5 mg daily to his lisinopril 40 mg daily. Avoid salt increased exercise lose weight. Assessment & Plan (11/13/2020 5:05 PM CDT): Well controlled on increased dose of lisinopril. Consider adding hydrochlorothiazide if needed down the road. Assessment & Plan (11/04/2020 3:23 PM CDT): Presented with hypertensive urgency, possibly due to pain. Stated that his PCP recently increased his Lisinopril and added HCTZ. He stopped taking the HCTZ after one week due to increased urine frequency. Currently well controlled. Lisinopril resumed. Continue to monitor BP. Assessment & Plan (10/12/2020 10:02 AM CDT): Increase lisinopril to 40 mg daily. Add hydrochlorothiazide 12.5 mg daily side effects discussed and call back if any develop. Check metabolic panel in 2 weeks. Will see him back in the office in 4 weeks for repeat evaluation. Call back with any concerns or if blood pressures do not slowly improve. Bradycardia precludes use of beta-blockers and most calcium channel blockers. Assessment & Plan (04/09/2019 1:33 PM CDT): Well controlled on the current regimen. Avoidance of salt, proper body weight, and routine exercise recommended. Assessment & Plan (09/29/2018 9:59 PM CDT): Well controlled on the current regimen. Avoidance of salt, proper body weight, and routine exercise recommended. Assessment & Plan (08/31/2018 3:38 PM CDT): Normotensive in office today. Cnt. Current dosing of lisinopril, dash diet, gradual increase exercise as tolerated considering limitations of LBP. Assessment & Plan (04/22/2018 11:01 PM CERTIFIED DIETARY MANAGER): Well controlled on the current regimen. Avoidance of salt, proper body weight, and routine exercise recommended. Assessment & Plan (06/22/2017 11:22 PM CERTIFIED DIETARY MANAGER): Well controlled on the current regimen. Avoidance of salt, proper body weight, and routine exercise recommended. Assessment & Plan (05/25/2017 9:15 PM CERTIFIED DIETARY MANAGER): Well controlled on the current regimen. Avoidance of salt, proper body weight, and routine exercise recommended. 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 - currently not on any medication - most recent PSA as shown below - continue current management - No longer following with Urology - most recent PSA as shown below Lab Results Component Value Date PSA 0.13 03/30/2023 PSA 0.11 04/04/2022 PSA 0.11 07/30/2021 Assessment & Plan (10/19/2023 12:11 PM CDT): - chronic, better controlled - has hx of TURP - was having frequent urination, urgency and slow/weak stream - was diagnosed with BPH and overactive bladder on Urodynamics - used to follow with urology but not anymore - 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 Check PSA before next visit. - most recent PSA as shown below Lab Results Component Value Date PSA 0.13 03/30/2023 PSA 0.11 04/04/2022 PSA 0.11 07/30/2021 Assessment & Plan (04/08/2021 10:21 AM CDT): Follow-up with his urologist following TURP. Check PSA before next visit. Assessment & Plan (11/13/2020 5:06 PM CDT): Status post TURP and had his catheter removed today after complication of bladder outlet obstruction. Follow-up with urology as they direct especially if he has difficulty urinating in the near future. Assessment & Plan (11/04/2020 3:17 PM CDT): S/p TURP on 10/09/[address] Erickson. Assessment & Plan (10/12/2020 10:02 AM CDT): Status post TURP on Thursday and doing well. Follow-up with his urologist as they direct. Assessment & Plan (04/09/2019 1:34 PM CDT): Continue finasteride, tamsulosin, oxybutynin. Check PSA yearly. If becomes symptomatic again would recommend repeat urological referral. Assessment & Plan (09/29/2018 10:02 PM CDT): Patient declines seeing his urologist due to length of drive. Will take over his finasteride and tamsulosin and oxybutynin. Check PSA yearly. If becomes symptomatic again, would recommend local urological referral. Assessment & Plan (08/31/2018 3:41 PM CDT): Cnt. To F/U with urologist, Dr. Garcia in for as scheduled along with current prescriptions of tamsulosin and finasteride as recommended Assessment & Plan (04/22/2018 11:01 PM CERTIFIED DIETARY MANAGER): Continue tamsulosin and finasteride and follow up with his urologist as he directs Assessment & Plan (06/22/2017 11:22 PM CERTIFIED DIETARY MANAGER): Well controlled on finasteride and tamsulosin. Assessment & Plan (05/25/2017 9:15 PM CERTIFIED DIETARY MANAGER): Well controlled on his Flomax and finasteride. Gastroesophageal reflux disease without esophagi tis 03/16/2017 Assessment & Plan (02/01/2025 11:13 AM CDT): - chronic condition, stable status - often exacerbated with food - currently on omeprazole 20 mg daily PRN only The current medical regimen is effective; continue present plan and medications. Recommend the following changes: - Avoid trigger foods (such as spicy foods, fried foods, onions, peppermints, chocolate, high acid foods and juices, caffeinated beverages, carbonated beverages, and tomato based products). - Avoid alcohol take. - Avoid routine use of NSAIDs. - Avoid lying down for 2-3 hours after eating. - Weight loss encouraged. - Eat smaller meals. - Avoid tobacco use. - Sleep on left side. - may sleep with bed propped. - Avoid wearing tight clothing that puts pressure on the stomach. Assessment & Plan (10/25/2024 10:58 AM CDT): - chronic condition, stable status - often exacerbated with food - currently on omeprazole 20 mg daily PRN only The current medical regimen is effective; continue present plan and medications. Recommend the following changes: - Avoid trigger foods (such as spicy foods, fried foods, onions, peppermints, chocolate, high acid foods and juices, caffeinated beverages, carbonated beverages, and tomato based products). - Avoid alcohol take. - Avoid routine use of NSAIDs. - Avoid lying down for 2-3 hours after eating. - Weight loss encouraged. - Eat smaller meals. - Avoid tobacco use. - Sleep on left side. - may sleep with bed propped. - Avoid wearing tight clothing that puts pressure on the stomach. Assessment & Plan (04/25/2024 12:00 PM CERTIFIED DIETARY MANAGER): - chronic condition, stable status - often exacerbated with food - currently on omeprazole 20 mg daily PRN only - continue current management Recommend the following changes: - Avoid trigger foods (such as spicy foods, fried foods, onions, peppermints, chocolate, high acid foods and juices, caffeinated beverages, carbonated beverages, and tomato based products). - Avoid alcohol take. - Avoid routine use of NSAIDs. - Avoid lying down for 2-3 hours after eating. - Weight loss encouraged. - Eat smaller meals. - Avoid tobacco use. - Sleep on left side. - may sleep with bed propped. - Avoid wearing tight clothing that puts pressure on the stomach. Assessment & Plan (10/19/2023 12:03 PM CDT): - chronic condition, stable status - often exacerbated with food - currently on omeprazole 20 mg daily PRN only - continue current management Recommend the following changes: - Avoid trigger foods (such as spicy foods, fried foods, onions, peppermints, chocolate, high acid foods and juices, caffeinated beverages, carbonated beverages, and tomato based products). - Avoid alcohol take. - Avoid routine use of NSAIDs. - Avoid lying down for 2-3 hours after eating. - Weight loss encouraged. - Eat smaller meals. - Avoid tobacco use. - Sleep on left side. - may sleep with bed propped. - Avoid wearing tight clothing that puts pressure on the stomach. Assessment & Plan (06/07/2021 11:07 AM CERTIFIED DIETARY MANAGER): Controlled on omeprazole. Assessment & Plan (04/08/2021 10:21 AM CDT): Well controlled with omeprazole as needed. Assessment & Plan (11/04/2020 2:53 PM CDT): Continue PPI Assessment & Plan (04/09/2019 1:33 PM CDT): Continue current PPI and the patient is aware of the long-term risks posed by chronic PPI usage. Magnesium level will be checked periodically. Calcium supplementation recommended. Assessment & Plan (09/29/2018 9:59 PM CDT): Continue current PPI and the patient is aware of the long-term risks posed by chronic PPI usage. Magnesium level will be checked periodically. Calcium supplementation recommended. Assessment & Plan (08/31/2018 3:42 PM CDT): Asymptomatic today in office. Cnt. Current prescription of Prilosec considering renal function remained stable, and dietary modifications Assessment & Plan (04/22/2018 11:01 PM CERTIFIED DIETARY MANAGER): Continue current PPI and the patient is aware of the long-term risks posed by chronic PPI usage. Magnesium level will be checked periodically. Calcium supplementation recommended. Assessment & Plan (06/22/2017 11:22 PM CERTIFIED DIETARY MANAGER): Continue current PPI and the patient is aware of the long-term risks posed by chronic PPI usage. Magnesium level will be checked periodically. Calcium supplementation recommended. Assessment & Plan (05/25/2017 9:16 PM CERTIFIED DIETARY MANAGER): Continue current PPI and the patient is aware of the long-term risks posed by chronic PPI usage. Magnesium level will be checked periodically. Calcium supplementation recommended. Lumbar spinal stenosis 03/16/2017 Overview (03/19/2018): Dr Zamorano injections prn. Annia/hydrocodone Assessment & Plan (05/05/2022 1:53 PM CERTIFIED DIETARY MANAGER): Okay to proceed with lumbar fusion. Assessment & Plan (09/29/2018 9:29 PM CDT): Follow-up with his surgeon and brush painter as they direct. Would recommend slowly weaning off of gabapentin. Assessment & Plan (08/31/2018 3:37 PM CDT): Pt wishes to proceed forward with upcoming lumbar fusion recommended by spinal surgeon. Further clearance recommendations is listed in detail under preop plan of care Assessment & Plan (04/22/2018 11:02 PM CERTIFIED DIETARY MANAGER): Follow-up with his brush painter as he directs. Assessment & Plan (05/25/2017 9:17 PM CERTIFIED DIETARY MANAGER): Would recommend using only Tylenol codeine as needed. Refer back to pain management as needed. 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 Labs per Dr Tipton normal 09/2022 and should be repeated in one year. Lab Results Component Value Date GLUCOSE 135 (H) 03/30/2023 CALCIUM 9.4 03/30/2023 SODIUM 138 03/30/2023 POTASSIUM 5.1 03/30/2023 CO2 27 03/30/2023 CHLORIDE 104 03/30/2023 BUNSER 22 03/30/2023 CREATININE 1.02 03/30/2023 CT Abdomen pelvis FINDINGS: Mild atelectasis in the bilateral lung bases. There is a lipid rich left adrenal adenoma with density of -10 Hounsfield units, which measures 1.6 cm in length. The liver, spleen, and right adrenal gland are normal in appearance. There is a simple cyst in the right kidney measuring approximately 2.8 cm. Mild cortical atrophy in both kidneys. Atherosclerotic calcifications in the aorta and branch vessels. No acute osseous abnormality. Multilevel posterior fusion of the spine is demonstrated. Calcifications are noted in the pancreatic head, which may represent sequela from chronic pancreatitis. IMPRESSION: 1. Lipid rich left adrenal adenoma. 2. Calcifications in the pancreas most consistent with chronic pancreatitis, unchanged. Assessment & Plan (09/22/2022 2:02 PM CDT): Left adrenal mass 1.7 cm detected in [address] scan showed stable intermediate mass on 03/19/22 No sign of adrenal dysfunction Labs on 08/01/22 Sodium 139 Potassium of 4.3 Plan: The abnormality on Adrenal gland explained to patient We will check CT scan this year. We will check labs with 1 mg Dexamethasone suppression test. If CT stable and labs are good, then recheck labs in one year Patient understands and agrees with above plan. Assessment & Plan (08/15/2022 11:47 AM CERTIFIED DIETARY MANAGER): Endocrinology referral. Assessment & Plan (05/05/2022 1:55 PM CERTIFIED DIETARY MANAGER): Needs follow-up imaging and endocrinology referral. Will plan on this after his lumbar back surgery completed. Resolved Problems Problem Noted Date Diagnosed Date Resolved Date Type 2 diabetes mellitus 04/20/2023 Medicare annual wellness visit, subsequent 05/05/2022 10/19/2023 Assessment & Plan (05/10/2023 7:25 PM CERTIFIED DIETARY MANAGER): We discussed a comprehensive list of medical conditions and proposed recommendations for each. We discussed the importance of increased exercise, fall prevention, proper nutrition, and suggested joining [facility] to accomplish most of these goals. Patient was given an age appropriate Medicare preventive services checklist. Please see the EMR regarding details of their health risk assessment and preventive services checklist. Will see him back in 6 months with lab sooner if needed. Assessment & Plan (05/05/2022 1:56 PM CERTIFIED DIETARY MANAGER): We discussed a comprehensive list of medical conditions and proposed recommendations for each. We discussed the importance of increased exercise, fall prevention, proper nutrition, and suggested joining [facility] to accomplish most of these goals. Patient was given an age appropriate Medicare preventive services checklist. Please see the EMR regarding details of their health risk assessment and preventive services checklist. Will see him back in 4 months with lab sooner if needed. Gall stones 04/27/2022 10/19/2023 Assessment & Plan (04/27/2022 8:31 PM CERTIFIED DIETARY MANAGER): Asymptomatic now, but he will need elective cholecystectomy once he recover from his back surgery which is scheduled 04/29/2022. Leukocytosis 03/20/2022 10/19/2023 Acute pancreatitis 03/19/2022 Assessment & Plan (05/05/2022 1:55 PM CERTIFIED DIETARY MANAGER): Likely due to cholelithiasis. Follow-up with GI as they direct. Will need eventual surgical referral for cholecystectomy Assessment & Plan (04/27/2022 8:29 PM CERTIFIED DIETARY MANAGER): Symptoms resolved. Differential was either due to gall stones disease vs. Secondary to Ozempic use. Weak urine stream 10/29/2021 10/19/2023 Lactic acidosis 11/06/2020 10/19/2023 Urinary tract infection, bacterial 11/04/2020 10/19/2023 Assessment & Plan (11/04/2020 3:18 PM CDT): Continue Ceftriaxone. Follow cultures. Monitor for fevers, WBC. Bladder distention 11/04/2020 Assessment & Plan (11/04/2020 2:57 PM CDT): CT abdomen pelvis with contrast reported significant bladder distention with inferior herniation of the bladder into the prostatectomy bed, along with mild bilateral Hydroureteronephrosis. Crandall was placed in the ED and urology consulted. Recommended to admit patient, no urgent urologic intervention recommended at this time as crandall has drained the patient's bladder, and Dr. Erickson will see patient on Thursday. Continue crandall. Monitor I/O. Enlarged prostate 09/25/2020 10/19/2023 Overview (09/25/2020): Added automatically from request for surgery [id number] Biceps tendinitis of right upper extremity 06/15/2020 10/19/2023 Preop exam for internal medicine 08/31/2018 10/19/2023 Assessment & Plan (08/31/2018 3:38 PM CDT): Pt was advised to continue current therapy and medications for chronic conditions as previously as advised. Continue with healthy dietary management as well. Pt offered no additional complaints today in office. Preoperative medical clearance: Pt is medically stable and aware there are risk associated with surgery and anesthesia. He states the surgeon has reviewed these risk in detail with patient, and wishes to proceed with surgery. They are medically cleared for surgery once additional labs ordered office today are reviewed and addressed Pt was instructed to contact the office with absolutely any changes prior to and post surgery, and certainly will touch base with Pt pending lab results in the next 24 hr with any additional recommendations or management Onychomycosis 03/19/2018 10/19/2023 Assessment & Plan (04/22/2018 11:02 PM CERTIFIED DIETARY MANAGER): Trial of terbinafine and call back if no improvement. Check hepatic function panel in 30 in 60 days. Chronic venous hypertension (idiopathic) without complications of right lower extremity 07/27/2017 10/19/2023 Edema 03/16/2017 10/19/2023 Assessment & Plan (05/25/2017 9:22 PM CERTIFIED DIETARY MANAGER): Hopefully stopping his Actos will decrease his swelling and will no longer require Lasix. With asymmetrical nature of his edema, will ask for a right lower extremity venous Doppler to rule out DVT. He should call back for results. Healthcare maintenance 03/16/201710/25 Assessment & Plan (04/08/2021 10:21 AM CDT): Flu shot each March. Tdap updated today. COVID vaccine completed. Shingrix completed. PSA before next visit. Colonoscopy due April 2027. Will see him back in 4 months with lab sooner if needed. Assessment & Plan (04/09/2019 1:34 PM CDT): Flu shot each March. Tetanus booster every 10 years. Shingrix completed. PSA yearly. Colonoscopy due April 2027. Will see him back in 6 months with lab sooner if needed. Assessment & Plan (04/22/2018 11:03 PM CERTIFIED DIETARY MANAGER): Flu shot each March. Tetanus booster every 10 years. Shingrix recommended. Colonoscopy due April 2027. Six months with lab sooner if needed. Assessment & Plan (05/25/2017 9:16 PM CERTIFIED DIETARY MANAGER): Flu shot each March. Tetanus booster every 10 years. Colonoscopy is due. PSA yearly. Will see him back in a few months with fasting lab sooner if needed. BMI 39.0-39.9,adult 03/16/2017 10/19/19 24 Diabetes mellitus with coinc ident hypertension 10/22/2013 02/01/2025 Overview (04/16/2022): Patient aware of benefits of statin therapy but deferring due to low bs/a1c. Small possibility of pancreatitis on ozempic but discontinued due to stomach cramps/pain 2 months before diagnosed with pancreatitis. Assessment & Plan (05/10/2023 7:25 PM CERTIFIED DIETARY MANAGER): A1c, LDL, and blood pressure currently well controlled on current regimen. Check a yearly diabetic eye exam and blood sugars daily. Monofilament testing is intact. Assessment & Plan (03/29/2023 9:06 PM CDT): A1c, LDL, and blood pressure currently well controlled on current regimen. Check a yearly diabetic eye exam and blood sugars daily. Monofilament testing is intact. Assessment & Plan (08/15/2022 11:47 AM CERTIFIED DIETARY MANAGER): A1c, LDL, and blood pressure currently well controlled on current regimen. Check a yearly diabetic eye exam and blood sugars daily. Monofilament testing is intact. Assessment & Plan (05/05/2022 1:54 PM CERTIFIED DIETARY MANAGER): A1c under goal. Avoid Ozempic in the future for possibility of pancreatitis but this seems to have been due to cholecystitis/cholelithiasis. A1c likely improved with less steroid injections. Diet exercise discussed. Check A1c before next visit Assessment & Plan (01/23/2022 7:47 AM CDT): Try to decrease steroid injections if able. Would recommend trying to continue Ozempic for now. Add low-dose metformin and increase as able. Only on 10 units of Toujeo thus will hold for now due to expense and restart down the road if needed. Assessment & Plan (10/19/2021 7:44 PM CDT): A1c certainly aggravated by his multiple steroid shots recently. Diet exercise for weight loss discussed. Start Ozempic. Discussed side effects call back if any develop. Assessment & Plan (04/08/2021 10:20 AM CDT): A1c above goal. He is urged to lose weight with combination low carb/sugar diet and increase exercise. Check A1c before next visit in add medication if needed. Statin therapy again discussed but will defer until next visit. Assessment & Plan (11/13/2020 5:06 PM CDT): Control with diet exercise and check A1c before next visit. Assessment & Plan (11/04/2020 2:55 PM CDT): Not on any meds for DM at home. A1C in Jul was 6.1. Presented with glucose 305. Started on basal bolus regimen. Will check an A1C. Monitor accuchecks on a low dose SSI. Assessment & Plan (10/12/2020 10:01 AM CDT): Blood sugars have been well controlled at home. Assessment & Plan (04/09/2019 1:33 PM CDT): A1c, LDL, and blood pressure currently well controlled on current regimen. Check a yearly diabetic eye exam and blood sugars daily. Monofilament testing is intact. Assessment & Plan (09/29/2018 9:29 PM CDT): A1c, LDL, and blood pressure currently well controlled on current regimen. Check a yearly diabetic eye exam and blood sugars daily. Take a daily aspirin. Monofilament testing is intact. Assessment & Plan (08/31/2018 3:39 PM CDT): Diabetes appears stable with last hemoglobin A1c of 5.2%. Renal function also was well WNL. Pt was encouraged to Cnt. Current dietary modifications, increasing exercise and working to word weight loss to improve overall glycemic control. Assessment & Plan (04/22/2018 11:01 PM CERTIFIED DIETARY MANAGER): A1c, LDL, and blood pressure currently well controlled on current regimen. Check a yearly diabetic eye exam and blood sugars daily. Take a daily aspirin. Monofilament testing is abnormal. Assessment & Plan (06/22/2017 11:22 PM CERTIFIED DIETARY MANAGER): A1c, LDL, and blood pressure currently well controlled on current regimen. Medication not currently needed for A1c control. In fact with it being normal along with a fasting blood sugar which is normal and already extremity low LDL, will hold statin therapy as well. Check a yearly diabetic eye exam and blood sugars daily. Take a daily aspirin. Monofilament testing is intact. Assessment & Plan (05/25/2017 9:15 PM CERTIFIED DIETARY MANAGER): With his lower extremity edema and multiple issues with Actos and his large weight loss and previous low A1c, will recommend we hold all medications for his blood sugars and simply repeat an A1c and fasting blood sugar before next visit. Blood pressure is well controlled on his lisinopril. He likely needs statin therapy and will check lipids and LFTs before next visit. He needs a daily aspirin, to check blood sugars once daily, and get a yearly diabetic eye exam. Monofilament testing intact Acute urinary obstruction Encounters Date Type Department Care Team Description 02/01/2025 10:45 AM CDT Office Visit [facility] Primary Care at [address] [phone] Jose Adamson MD Hypertension associated with type 2 diabetes mellitus (HCC) (Primary Dx); Morbid obesity with BMI of 40.0-44.9, adult (HCC); Gastroesophageal reflux disease without esophagitis; Type 2 diabetes mellitus without complication, without long-term current use of insulin (HCC); Hepatitis C virus infection cured after antiviral drug therapy; History of fusion of lumbar spine 01/29/2025 Results Follow-Up [facility] Primary Care at [address] [phone] Jose Adamson MD CBC without differential, Thyroid Function [place], Hemoglobin A1c, Additional followed-up results: 3 01/27/2025 Results Follow-Up [facility] Gastroenterology at [address] [phone] Dee Padilla PA Hepatitis C (HCV) RNA PCR, quantitative Blood 01/26/2025 1:15 PM CDT Lab [address] [phone] Type 2 diabetes mellitus without complication, without long-term current use of insulin (HCC); Hypertension associated with type 2 diabetes mellitus (HCC); Morbid obesity with BMI of 40.0-44.9, adult (HCC) 01/21/2025 11:45 AM CDT Lab [address] [phone] Chronic hepatitis C without hepatic coma (HCC) 01/19/2025 Telephone [facility] at [address] [phone] Jose Adamson MD Medical Question/Miscellane ous 11/25/2024 2:00 PM CDT Office Visit [facility] Gastroenter[facility] at [address] [phone] Paul Fulton NP Chronic hepatitis C without hepatic coma (HCC) (Primary Dx); Colon cancer screening; Hepatic fibrosis from Last 3 Months Immunizations Immunization Administration Dates Next Due COVID-19 MRNA (MODERNA) .5 M L (50 MCG) VACCINE (12 YEARS AND UP) 04/08/2023 H1N1 All Forms 04/23/2009 Influenza, Quadrivalent, Hig h Dose, Preservative Free, Intrr 04/10/2023,03/25/2022,03/26/2021 Influenza, Quadrivalent, Rec ombinant, Egg Free, Preservative Free, Intramuscular 04/01/2020 Influenza, Quadrivalent, Spl it, Preservative Free, Intramuscular 03/03/2019,03/19/2018,03/16/2017 Influenza, Trivalent, Cell Culture-based MDCK, Preservative Free, Antibiotic Free, Intramuscular 04/23/2014 Influenza, Trivalent, High D ose, Split, Preservative Free, Intramuscular 04/25/2024 Influenza, Trivalent, IM (MDV) 04/09/2015 Influenza, Unspecified 02/01/2025(Deferr ed: Patient Refused),03/05/2015 Pfizer SARS-CoV-2 Monovalent Vaccination (12+ Yrs) PURPLE 08/01/2020,07/11/2020 Pfizer Sars-Cov-2 Bivalent V accination (12+ YRS) 04/17/2022 Pneumococcal Conjugate PCV 13 04/16/2022 Pneumococcal Conjugate Pcv20 04/25/2024 Pneumococcal Polysaccharide PPV23 03/29/2018,06/2013,02/06/2014 Tdap 10/09/2022,04/08/2021 ZOSTER LIVE 01/30/2014 ZOSTER Recombinant 03/26/2019,12/31/2018 Surgical History Surgery Date Site/Laterality Comments BACK SURGERY 02/13/2016 L4-L5 Dr He, 2018 and 2021 L2-L3, L4-5 back fusion LUMBAR FUSION 08/06/2018 - 09/05/2018 L3-L4, Dr He TRANSURETHRAL RESECTION OF PROSTATE 10/09/2020 Dr Erickson PROSTATE SURGERY SPINE SURGERY 05/08/2022 - 06/07/2022 [place] FLUORO GUIDED INJECTION HIP LEFT 07/05/2021 Left CHOLECYSTECTOMY 07/28/2022 Medical History Medical History Date Comments Hx Other Medical Diabetes Spinal stenosis 2013 Hypertension Urinary incontinence Erectile dysfunction Diabetes mellitus (HCC) Back pain GERD (gastroesophageal reflux disease) Type 2 diabetes mellitus 04/20/2023 Family History Medical History Relation Name Comments Cancer Father Alin [place] history of pros allen cancer COPD Mother Becca Colon Diverticulitis Mother Becca Colon Diverticulosis Mother Becca Colon Relation Name Status Comments Father Alin [place] Alive Mother Becca Colon Alive Social History Tobacco Use Types Packs/Day Years Used Date Smoking Tobacco: Former Cigarettes 0.5 10 1 08/02/1977 - 06/01/1988 Smokeless Tobacco: Never Tobacco Cessation:Counseling Given: Not Answered Alcohol Use Standard Drinks/Week Comments Not Currently [...] on file Legal Sex Male 12:35 AM CERTIFIED DIETARY MANAGER Gender Identity Male 04/03/2021 10:40 PM CDT Sexual Orientation Straight 05/29/2020 10 :35 AM CERTIFIED DIETARY MANAGER 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 Not on file Not on fi le Obstetrics History Last Filed Vital Signs Vital Sign Reading Time Taken Comments Blood Pressure 126/74 02/01/2025 10:37 AM CDT Pulse 58 02/01/2025 10:37 AM CDT Temperature 36.7 C (98 F) 02/01/2025 10:37 AM CDT Respiratory Rate 24 06/02/2024 11:2 4 AM CERTIFIED DIETARY MANAGER Oxygen Saturation 97% 02/01/2025 10: 37 AM CDT Inhaled Oxygen Concentration - - Weight 131.2 kg (289 lb 3.2 oz) 025 10:37 AM CDT Height 182.9 cm (6') 02/01/2025 10:37 AM CDT Body Mass Index 39.22 02/01/2025 10:37 AM CDT Plan of Treatment Health Maintenance Due Date Last Done Comments Covid-19 Vaccine (7 2024-2 6 season) 2025 04/08/2023, 04/17/2022, 11/08/2021, Additional history exists Influenza Vaccine (#1) 2025 , 04/10/2023, 03/25/2022, Additional history exists Dilated Eye Exam 02/19/2025 02/19/2023, , 05/02/2020 Well Visit 65+ 04/25/2025 04/25/2024, 04/08, 04/16/2022, Additional history exists Hemoglobin A1C 07/29/2025 01/26/2025, 05/0 12/2024, 04/05/2024, Additional history exists Foot Exam 09/30/2025 09/30/2024, 12/06, 08/15/2022, Additional history exists Albumin Creatinine Ratio, Urine 10/12/2025 10/12/2024, 10/17/2023, 03/30/2023, Additional history exists Prostate Cancer Screening-PSA 10/12/2025, 03/30/2023, 04/04/2022, Additional history exists Lipid Panel 01/26/2026 01/26/2025, 05/0 12/2024, 04/05/2024, Additional history exists eGFR 01/26/2026 01/26/2025, 05/0 12/2024, 07/27/2024, Additional history exists Depression Screening 02/01/2026 02/01/2025, 10/25/2024, 04/25/2024, Additional history exists Fall Risk Assessment 02/01/2026 02/01/2025, 10/25/2024, 04/25/2024, Additional history exists Colon Cancer Screening-Colonoscopy 04/13/2027 04/13/2017, 04/13/2017 DTaP/Tdap/Td Vaccine (3 - Td or Tdap) 10/09/2032 10/09/2022, 04/08/2021 Colon Cancer Screening-CT Colonography Discontinued 04/13/2017, 04/13/2017 Colon Cancer Screening-DNA Stool Discontinued 04/13/20 17, 04/13/2017 Colon Cancer Screening-FIT Discontinued 04/13/2017, Colon Cancer Screening-Sigmoidoscopy Discontinued 04/13/2017, 04/13/2017 Zoster Vaccine Completed 03/26/2019, 12/07, 01/30/2014 Abdominal Aortic Aneurysm (A AA) Screen Completed 09/29/2022, 03/19/2022, 05/07/2021, Additional history exists Pneumococcal vaccine 65+ Completed 024, 04/16/2022, 03/29/2018, Additional history exists Hepatitis B Screening Completed 07/27/2024 Hepatitis C Screening Completed 01/21/2025 , 01/21/2025, 11/25/2024, Additional history exists Medical Devices Implanted Type Area Broom Man Device Identifier Shelf Expiration Date Model / Serial / Lot [employer] Weck Hem-O-Meliza Ligate Nonabsorbable Cartridge Medium Large Latex Free [id number] - [id number] Implanted:Qty: 1 on 07/28/2022 by Norris Dyson MD at [facility] N/A: Abdomen [employer] 05/06/2023 [id number] / [id number] Procedures Procedure Name Priority Date/Time Associated Diagnosis Comments EGFR Routine 01/26/2025 1:20 PM CDT Type 2 diabetes mellitus without complication, without long-term current use of insulin (HCC) Hypertension associated with type 2 diabetes mellitus (HCC) Morbid obesity with BMI of 40.0-44.9, adult (HCC) COMPREHENSIVE METABOLIC PANEL Routine 01/26/2025 1:20 PM CDT Type 2 diabetes mellitus without complication, without long-term current use of insulin (HCC) Hypertension associated with type 2 diabetes mellitus (HCC) Morbid obesity with BMI of 40.0-44.9, adult (HCC) LIPID PANEL Routine 01/26/2025 1:20 PM CDT Type 2 diabetes mellitus without complication, without long-term current use of insulin (HCC) Hypertension associated with type 2 diabetes mellitus (HCC) Morbid obesity with BMI of 40.0-44.9, adult (HCC) HEMOGLOBIN A1C Routine 01/26/2025 1:20 PM CDT Type 2 diabetes mellitus without complication, without long-term current use of insulin (HCC) Hypertension associated with type 2 diabetes mellitus (HCC) Morbid obesity with BMI of 40.0-44.9, adult (HCC) THYROID FUNCTION CASCADE Routine 01/26/2025 1:20 PM CDT Type 2 diabetes mellitus without complication, without long-term current use of insulin (HCC) Hypertension associated with type 2 diabetes mellitus (HCC) Morbid obesity with BMI of 40.0-44.9, adult (HCC) CBC WITHOUT DIFFERENTIAL Routine 01/26/2025 1:20 PM CDT Type 2 diabetes mellitus without complication, without long-term current use of insulin (HCC) Hypertension associated with type 2 diabetes mellitus (HCC) Morbid obesity with BMI of 40.0-44.9, adult (HCC) HEPATITIS C RNA, QUANTITATIVE, PCR Routine 01/21/2025 11:49 AM CDT Chronic hepatitis C without hepatic coma (HCC) ALBUMIN CREATININE RATIO, URINE Routine 10/12/2024 12:49 PM CDT Diabetes mellitus due to underlying condition with hyperglycemia, unspecified whether longterm insulin use (HCC) PSA SCREEN Routine 10/12/2024 12:49 PM CDT Prostate cancer screening DIABETIC FOOT EXAM Routine 09/30/2024 DIABETIC EYE EXAM Routine 02/19/2023 CT ABDOMEN WO CONTRAST Schedule Routine, Read Routine (OP Routine) 09/29/2022 11:58 AM CDT Adrenal nodule COLONOSCOPY REPORT 04/13/2017 from Last 3 Months or Most Recently Relevant to Health Maintenance Results * eGFR (01/26/2025 1:20 PM CDT) eGFR 78 >=60 mL/min/1. 73 m2 Comment: Interpretive Data Reference Interval Normal >/= 90 mL/min/1.73m2 Mildly decreased* 60 - 89 mL/min/1.73m2 Mildly to moderately decreased 45 - 59 mL/min/1.73m2 Moderately to severely decreased 30 - 44 mL/min/1.73m2 Severely decreased 15 - 29 mL/min/1.73m2 Kidney Failure < 15 mL/min/1.73m2 *Relative to young adult level Estimated glomerular filtration rate is determined by the 2020 CKD-EPI equation recommended by the National Kidney Foundation (A Unifying Approach to GFR Estimation: Recommendations of the NKF-ASK Task Force on Reassessing the Inclusion of Race in Diagnosing Kidney Disease, JASN 2020). The CKD-EPI equation should not be used for patients with unstable renal function and has not been validated in children and those over 70. Current interpretive data was last reviewed 2021. Blood 01/26/2025 1:20 PM CDT 01/26/2025 1:42 PM CDT Jose Adamson MD LAB BLOOD ORDERABLES Fi nal Result [facility] ([place]) 1 [facility] [place] [address] * Thyroid Function [place] (01/26/2025 1:20 PM CDT) TSH 1.13 0.30 - 4.20 mcIUnit/mL [facility] ([place]) Blood 01/26/2025 1:20 PM CDT 01/26/2025 1:42 PM CDT Jose Adamson MD LAB BLOOD ORDERABLES Fi nal Result Performing Organization Address City/[facility]/ZIP Co de Phone Number [facility] ([place]) 1 [facility] [place] [address] * (ABNORMAL) CBC without differential (01/26/2025 1:20 PM CDT) WBC 11.16(H) 3.80 - 9.90 K/cumm Hgb 15.5 13.0 - 17.5 g/dL [facility] ([place]) Hct 46.9 38.9 - 50.3 % [facility] ([place]) Plt 263 150 - 400 K/cumm [facility] ([place]) MPV 11.5 9.1 - 12.3 fL [facility] ([place]) RBC 5.11 4.30 - 5.80 M/cumm [facility] ([place]) MCV 91.8 81.3 - 96.4 fL [facility] ([place]) MCH 30.3 27.1 - 33.3 pg [facility] ([place]) MCHC 33.0 32.3 - 35.7 g/dL [facility] ([place]) RDW CV 13.4 11.1 - 14.9 % [facility] ([place] RDW SD 46.0 35.7 - 48.1 fL [facility] ([place]) NRBC abs 0.00 0.00 - 0.01 K/cumm [facility] ([place]) Blood 01/26/2025 1:20 PM CDT 01/26/2025 1:42 PM CDT Jose Adamson MD LAB BLOOD ORDERABLES nal Result Performing Organization Address [facility] Co de Phone Number [facility] ([place]) 1 [facility] [employer] [place] [address] * (ABNORMAL) Hemoglobin A1c (01/26/2025 1:20 PM CDT) Hgb A1C 5.9(H) 4.0 - 5.6 % [facility] ([place]) Estimated Average Glucose 123 mg/dL [facility] ([place]) Comment: The ADA recommends reporting an estimated Average Glucose (eAG) with all Hemoglobin A1c results using the equation derived from a study of 507 normal and diabetic adults. Minority populations were underrepresented and children were not included. (Diabetes Care 31:0804-0999, 2008). The eAG is not equivalent to a fasting glucose. Testing performed by: [facility], [facility], [place], [address] Blood 01/26/2025 1:20 PM CDT 01/26/2025 1:42 PM CDT Jose Adamson MD LAB BLOOD ORDERABLES Fi nal Result Performing Organization Address [facility] Co de Phone Number [facility] ([place]) 1 [facility] [place] [address] * (ABNORMAL) Lipid panel (01/26/2025 1:20 PM CDT) Cholesterol 148 30 - 199 mg/dL [facility] ([place]) Comment: Interpretive Data Ages < or = 19 years Acceptable: <170 mg/dL Borderline high: 170-199 mg/dL High: >or= 200 mg/dL Ages > or = 20 years Desirable: <200 mg/dL Borderline high: 200-239 mg/dL High: >or= 240 mg/dL Literature References: 1. Expert Panel on Integrated Guidelines for Cardiovascular Health and Risk Reduction in Children and Adolescents. Pediatrics 2011;128:S213 2. NCEP Expert Panel. Circulation 2004;110:227 Current Interpretive Data was last revised on 2018. Triglycerides 160(H) <=149 mg/dL [facility] ([place]) Comment: Interpretive Data Ages < or = 9 years Acceptable: <75 mg/dL Borderline high: 75-99 mg/dL High: >or= 100 mg/dL Ages 10 to 20 years Acceptable: <90 mg/dL Borderline high: 90-129 mg/dL High: >or= 130 mg/dL Ages > or = 20 years Desirable: <150 mg/dL Borderline high: 150-199 mg/dL High: 200-499 mg/dL Very high: >or= 499 mg/dL Literature References: 1. Expert Panel on Integrated Guidelines for Cardiovascular Health and Risk Reduction in Children and Adolescents. Pediatrics 2011;128:S213 2. NCEP Expert Panel. Circulation 2004;110:227 Current Interpretive Data was last revised on 2018. HDL 36(L) >=40 mg/dL [facility] ([place]) Comment: Interpretive Data Ages < or = 19 years Acceptable: >45 mg/dL Borderline low: 40-45 mg/dL Low: <40 mg/dL Ages > or = 20 years Desirable: >or= 60 mg/dL Low: <40 mg/dL Literature References: 1. Expert Panel on Integrated Guidelines for Cardiovascular Health and Risk Reduction in Children and Adolescents. Pediatrics 2011;128:S213 2. NCEP Expert Panel. Circulation 2004;110:227 Current Interpretive Data was last revised on 2018. LDL, calculated 84 <=129 mg/dL [facility] ([place]) Comment: Interpretive Data Ages < or = 19 years Acceptable: <110 mg/dL Borderline high: 110-129 mg/dL High: >or= 130 mg/dL Ages > or = 20 years Optimal: <100 mg/dL Near optimal: 100-129 mg/dL Borderline high: 130-159 mg/dL High: >160 mg/dL Calculated using the Venkatesh LDL-C estimating equation. This equation was implemented on 2024. Prior to this date LDL-C was estimated using the Friedewald equation. Literature References: 1. Expert Panel on Integrated Guidelines for Cardiovascular Health and Risk Reduction in Children and Adolescents. Pediatrics 2011;128:S213 2. NCEP Expert Panel. Circulation 2004;110:227 3. Venkatesh Owens et al. CLIVE Cardiol. 2020 October 06;5(5):540-548. doi: 10.1001/[email or web address].2020.0013 Current Interpretive Data was last revised on 2024. Testing performed by: [place], [address] Non-HDL Cholesterol 112 mg/dL [facility] ([place]) Comment: Interpretive Data Ages < or = 19 years Acceptable: <120 mg/dL Borderline high: 120-144 mg/dL High: >145 mg/dL Ages > or = 20 years When triglycerides are >200 mg/dL, Non-HDL cholesterol is a secondary target of therapy with treatment goals that are 30 mg/dL greater than the LDL cholesterol target. Literature References: 1. Expert Panel on Integrated Guidelines for Cardiovascular Health and Risk Reduction in Children and Adolescents. Pediatrics 2011;128:S213 2. NCEP Expert Panel. Circulation 2004;110:227 Current Interpretive Data was last revised on 2018. Testing performed by: [place], [address] Chol/HDL ratio 4 [facility] ([place]) Comment:Testing performed by : [place], [address] Blood 01/26/2025 1:20 PM CDT 01/26/2025 1:42 PM CDT Narrative [facility] ([place]) - 01/26/2025 2:24 PM CDT Has the patient been fasting for 8 hours or more?->No us Jose Adamson MD LAB BLOOD ORDERABLES Fi nal Result [facility] ([place] 1 [facility] [place] [address] * Comprehensive metabolic panel (01/26/2025 1:20 PM CDT) Sodium 139 135 - 145 mmol/L [facility] Potassium, pl 4.5 3.3 - 4.9 mmol/L [facility] Chloride 106 97 - 110 mmol/L [facility] CO2 22 22 - 32 mmol/L [facility] Anion gap 11 2 - 15 mmol/L [facility] BUN 25 6 - 25 mg/dL [facility] Creatinine 1.04 0.80 - 1.30 mg/dL [facility] Glucose 109 70 - 199 mg/dL [facility] Comment: Interpretive Data Fasting glucose >/= 126 mg/dl is diagnostic for diabetes. Fasting is defined as no caloric intake for at least 8 hours. Fasting glucose between 100 mg/dl to 125 mg/dl is diagnostic of prediabetes. In a patient with classic symptoms of hyperglycemia or hyperglycemic crisis, a random glucose >/= 200 mg/dl is diagnostic for diabetes. In the absence of unequivocal hyperglycemia, results should be confirmed by repeat testing. The classification and Diagnosis of Diabetes Diabetes Care 202; 46: S19-S40. Current interpretive data was last revised 2022. Calcium 9.3 8.5 - 10.3 mg/dL [facility] Bilirubin, total 0.5 0.1 - 1.2 mg/dL [facility] Protein, pl 7.5 6.5 - 8.5 g/dL [facility] Albumin 4.1 3.5 - 5.0 g/dL [facility] Alk phos 62 40 - 130 Units/L [facility] ALT 27 7 - 55 Units/L [facility] AST 18 10 - 50 Units/L [facility] Blood 01/26/2025 1:20 PM CDT 01/26/2025 1:42 PM CDT Jose Adamson MD LAB BLOOD ORDERABLES Fi nal Result [facility] [place]) 1 [facility] [place] [address] * Hepatitis C (HCV) RNA PCR, quantitative Blood (01/21/2025 11:49 AM CDT) [facility] HCV RNA result Not Detected [facility] Comment: The quantifiable range of this assay is 15 IU/mL to 100,000,000 IU/mL (1.18 log IU/mL to 8.00 log IU/mL). Testing was performed by the BORIS 6800 HCV Test ([employer] Testing performed at [facility] Current Interpretive Data was last revised on 2021 Testing performed by: [facility], [address] [place]., [address] Blood 01/21/2025 11:4 9 AM CDT 01/21/2025 6:04 PM CDT Paul Fulton NP LAB MICROBIOLOGY - GENERAL ORDERABLES Final Result Performing Organization Address City/[facility] Co de Phone Number [facility]IG[facility] [place]) 1 [facility] [place] [address] [facility] * PSA screen (10/12/2024 12:49 PM CDT) [facility] PSA-Total 0.12 <=5.40 ng/mL Comment: Interpretive Data AGE SEX REFERENCE INTERVAL 0 minutes-150 years Female None 0 minutes-49 years Male None 50-59 years Male 0-3.90 60-69 years Male 0-5.40 70-79 years Male 0-6.20 80-150 years Male 0-6.20 The [employer] PSA Total assay procedure was used. Results from different manufacturers or methods may not be comparable. Serial testing should be performed using the same method. Current interpretive data last revised 21. Blood 10/12/2024 12:4 9 PM CDT 10/12/2024 1:08 PM CDT Jose Adamson MD LAB BLOOD ORDERABLES Fi nal Result Performing Organization Address [facility] Co de Phone Number INGRID RODRIGUEZ ([place]) 1 [facility] [place] [address] * Albumin Creatinine Ratio, Urine (10/12/2024 12:49 PM CDT) Albumin Ur <12.0 mg/L Comment: Interpretive Data No reference range established. Current interpretive data was last revised 2018. Testing performed by: [facility], [address] [place] [address]., [address] Creatinine Ur 126.3 mg/dL INGR[facility] RODRIGUE[facility] ([place]) Comment: Interpretive Data No reference range established. Current interpretive data was last revised 2018. Testing performed by: [facility], [address] [place] [address]., [address] Albumin Creatinine Ratio, Ur <10 1 - 29 mg/g INGR[facility] RODRIGUE[facility] ([place]) Comment:Testing performed by : [facility], [address] [place] [address]., [address] Urine 10/12/2024 12:4 9 PM CDT 10/12/2024 7:06 PM CDT Jose Adamson MD LAB URINE ORDERABLES Fi nal Result Performing Organization Address [facility] Co de Phone Number INGRID RODRIGUEZ ([place]) 1 [facility] [place] [address] * Diabetic Foot Exam (09/30/2024) us Historical Provider HEALTH MAINTENANCE Final Result * Diabetic Eye Exam (02/19/2023) us Generic External Data Provider HEALTH MAINTENANC E Final Result * CT abdomen without contrast (09/29/2022 11:58 AM CDT) Anatomical Region Laterality Modality Body N/A Computed Tomogra phy 09/29/2022 12:2 2 PM CDT Impressions 09/29/2022 12:22 PM CDT 1. Lipid rich left adrenal adenoma. 2. Calcifications in the pancreas most consistent with chronic pancreatitis, unchanged. Electronically signed by: Jordan Ozuna II, D.O. Narrative 09/29/2022 12:22 PM CDT EXAMINATION: CT ABDOMEN WO CONTRAST DATE: 09/29/2022 12:00 PM HISTORY: Adrenal mass. COMPARISON: Multiple priors most recent dated 03/19/2022. TECHNIQUE: Transaxial computed tomographic images of the abdomen and pelvis were obtained without contrast. Multiplanar coronal and sagittal images were reformatted. FINDINGS: Mild atelectasis in the bilateral lung bases. There is a lipid rich left adrenal adenoma with density of -10 Hounsfield units, which measures 1.6 cm in length. The liver, spleen, and right adrenal gland are normal in appearance. There is a simple cyst in the right kidney measuring approximately 2.8 cm. Mild cortical atrophy in both kidneys. Atherosclerotic calcifications in the aorta and branch vessels. No acute osseous abnormality. Multilevel posterior fusion of the spine is demonstrated. Calcifications are noted in the pancreatic head, which may represent sequela from chronic pancreatitis. Procedure Note Jordan Ozuna II, - 09/29/2022 EXAMINATION: CT ABDOMEN WO CONTRAST DATE: 09/29/2022 12:00 PM HISTORY: Adrenal mass. COMPARISON: Multiple priors most recent dated 03/19/2022. TECHNIQUE: Transaxial computed tomographic images of the abdomen and pelvis were obtained without contrast. Multiplanar coronal and sagittal images were reformatted. FINDINGS: Mild atelectasis in the bilateral lung bases. There is a lipid rich left adrenal adenoma with density of -10 Hounsfield units, which measures 1.6 cm in length. The liver, spleen, and right adrenal gland are normal in appearance. There is a simple cyst in the right kidney measuring approximately 2.8 cm. Mild cortical atrophy in both kidneys. Atherosclerotic calcifications in the aorta and branch vessels. No acute osseous abnormality. Multilevel posterior fusion of the spine is demonstrated. Calcifications are noted in the pancreatic head, which may represent sequela from chronic pancreatitis. IMPRESSION: 1. Lipid rich left adrenal adenoma. 2. Calcifications in the pancreas most consistent with chronic pancreatitis, unchanged. Electronically signed by: Jordan Ozuna II, D.O. Adriano Tipton MD IMG CT PROCEDURES Final Result * COLONOSCOPY REPORT (04/13/2017) Anatomical Region Laterality Modality Other Provider Scanning GI PROCEDURE ORDERABLES Final Result from Last 3 Months or Most Recently Relevant to Health Maintenance Insurance [facility] CO MEDICARE [facility] CO DEPT OF LABOR - [facility] Advance Directives For more information, please contact: [phone] * Full Code (Latest Code Status on File) Date Activated Date Inactivated Comments 03/19/2022 7:06 PM 03/25/2022 3:32 PM * Full Code Date Activated Date Inactivated Comments 11/04/2020 3:24 PM 11/08/2020 6:44 PM * Full Code Date Activated Date Inactivated Comments 11/04/2020 3:24 PM 11/04/2020 3:24 PM Care Teams Cap Inspector Relationship Specialty Start Date End Date Jose Adamson MD [address] [facility] [address] [place] [address] PCP - General Family Medicine 11/15/24 Dylan Samuel DPM [address] [place] [address] Consulting Physician Orthotics 09/20/21 Marques Rowland MD [address] [place] [address] Consulting Physician Gastroenterology 03/25/22 Marky He MD [address] [place] [address] Consulting Physician Neurosurgery 07/18/22 Juju Bautista MD [address] [place] [address] Surgeon Anesthesiology 10/19/23 Mg Keenan MD [address] [facility] [phone] [place] [address] Consulting Physician Plastic Surgery 10/19/23 Paul Fulton NP [address] [place] [address] [place] [address] Nurse Practitioner Gastroenterology 10/25/24
--- OUTSIDE RECORDS SUMMARY | 2025-02-21 08:45 | XMS_ITS | Encounter Summary ---
Author Organization [facility] Address [address] [place] [address] Phone Care Team Providers Care Service Trainer Name Role Phone Nicola Patel MD Primary Care Provider [phone] Leonel Erickson MD Unavailable [phone] Dylan Samuel DPM Unavailable [phone] Marques Rowland MD Unavailable [phone] Marky He MD Unavailable [phone] Jose Adamson MD Primary Care Provider Juju Bautista MD Unavailable [phone] Mg Keenan MD Unavailable [phone] Paul Fulton NP Unavailable [phone] Jose Adamson MD Primary Care Provider Encounter Details Date Type Department Care Team (Late st Contact Info) Description 10/19/2020 Telephone [facility] Urology [address] [facility] [address] [place] [address] Keli Noble, LILIA Social History Tobacco Use Types Packs/Day Years Used Date Smoking Tobacco: Former Cigarettes Q uit: 06/01/1988 Smokeless Tobacco: Never Alcohol Use Standard Drinks/Week Comments Yes 0 (1 standard drink = 0.6 oz pur e alcohol) AUDIT-C Answer Date Recorded Q1: How often do you have a drink containing alc ohol? Never 10/09/2020 Average Number of Drinks Not on file 021 Q3: How often do you have si x or more drinks on one occasion? 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 Not on file Not on fi le documented as of this encounter Plan of Treatment Not on file documented as of this encounter Visit Diagnoses Not on filedocumented in this encounter Care Teams Service Trainer Relationship Specialty Start Date End Date Nicola Patel MD PCP - General Internal Medicine 03/16/17 10/18/23 Jose Adamson MD [address] [place] [address] PCP - General Family Medicine 10/19/23 11/14/24 Jose Adamson MD [address] [place] [address] PCP - General Family Medicine 11/15/24 Leonel Erickson MD Consulting Physician Urology 11/08/20 10/18/23 Dylan Samuel DPM [address] [place] [address] Consulting Physician Orthotics 09/20/21 Marques Rowland MD [address] [place] [address] Consulting Physician Gastroenterology 03/25/22 Marky He MD [address] [place] [address] Consulting Physician Neurosurgery 07/18/22 Juju Bautista MD [address] [place] [address] Surgeon Anesthesiology 10/19/23 Mg Keenan MD [address] [facility] [phone] [place] [address] Consulting Physician Plastic Surgery 10/19/23 Paul Fulton NP [address] [facility] [place] [address] Nurse Practitioner Gastroenterology 10/25/24 documented as of this encounter
--- OUTSIDE RECORDS SUMMARY | 2025-02-21 08:45 | XMS_ITS | Encounter Summary ---
Author Organization [facility] Address [address] [facility] [address] [place] [address] Care Team Providers Care Electronic Semiconductor Processor Name Role Phone Jf Wyatt Primary Care Provider UnavailJf Trivedi Primary Care Provider UnavailNicola Hill MD Primary Care Provider [phone] Leonel Erickson MD Unavailable [phone] Dylan Samuel DPM Unavailable [phone] Marques Rowland MD Unavailable [phone] Marky He MD Unavailable [phone] Jose Adamson MD Primary Care Provider Juju Bautista MD Unavailable [phone] Mg Keenan MD Unavailable + [phone] Paul Fulton NP Unavailable [phone] Jose Adamson MD Primary Care Provider Reason for Referral * (Routine) - Closed Specialty Diagnoses / Procedures Referred By Gonzalez harmon Referred To Contact Procedures Cystourethroscopy - [facility] Health Information Management [address] [place] [address] Phone: tel: fax: [facility] Referral ID Status Reason Start Date Expiration Date Visits Re quested Visits Authorized [id number] Closed 10/22/2018 05/02/2020 1 1 PIGEON LOADER Encounter Details Date Type Department Care Team (Late st Contact Info) Description 06/22/2015 Orders Only [facility] Health Information Management [address] [place] [address] Nicola Patel MD [address] [facility] [address], [place] [address] Social History Tobacco Use Types Packs/Day Years Used Date Smoking Tobacco: Never Alcohol Use Standard Drinks/Week Comments Yes 0 (1 standard drink = 0.6 oz pur e alcohol) Sex and Gender Information Value Date Recorded Sex Assigned at Not on file Legal Sex Male 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 Gender Identity Male 04/03/2021 10:40 PM CDT Sexual Orientation Straight 05/29/2020 10 :35 AM CLAY PIGEON LOADER documented as of this encounter Plan of Treatment Not on file documented as of this encounter Procedures Procedure Name Priority Date/Time Associated Diagnosis Comments CYSTOURETHROSCOPY Routine 06/22/2015 documented in this encounter Results * Cystourethroscopy - (06/22/2015) Historical Provider MD JUAREZ PROCEDURE ORDERABLES F inal Result documented in this encounter Visit Diagnoses Not on filedocumented in this encounter Care Teams Electronic Semiconductor Processor Relationship Specialty Start Date End Date Jf Wyatt PCP - General 09/05/16 03/15/17 Jf Wyatt PCP - General 11/17/14 09/04/16 Nicola Patel MD PCP - General Internal Medicine 03/16/17 10/18/23 Jose Adamson MD [address] [place] [address] PCP - General Family Medicine 10/19/23 11/14/24 Jose Adamson MD [address] [place] [address] PCP - General Family Medicine 11/15/24 Leonel Erickson MD Consulting Physician Urology 11/08/20 10/18/23 Dylan Samuel DPM [address] [place] [address] Consulting Physician Orthotics 09/20/21 Marques Rowland MD [address] [place] [address] Consulting Physician Gastroenterology 03/25/22 [place] [address] [place] [address] Consulting Physician Neurosurgery 07/18/22 Juju Bautista MD [address] [place] [address] Surgeon Anesthesiology 10/19/23 Mg Keenan MD [address] [facility] [facility] [facility] [phone] [place] [address] Consulting Physician Plastic Surgery 10/19/23 Paul Fulton NP [address] [place] [address] [place] [address] Nurse Practitioner Gastroenterology 10/25/24 documented as of this encounter
--- NOTE | 2025-02-21 08:52 | ECG_ITS ---
Test Date: 2025-02-21 09:11:36 Measurements Intervals Alsen Rate: 54 P: 23 TN: 172 QRS: -40 QRSD: 134 T: 63 QT: 437 QTc: 414 Interpretive Statements SINUS BRADYCARDIA MARKED LEFT AXIS DEVIATION [QRS AXIS < -30] INTRAVENTRICULAR CONDUCTION DELAY [130+ ms QRS DURATION] SEPTAL MYOCARDIAL INFARCTION [40+ ms Q WAVE IN V1/V2], OF INDETERMINATE AGE No previous ECG available for comparison Electronically Signed On 02-21-2025 09:26:25 CDT by Chriss Belcher M.D.
[2025-02-21 09:51] LABS: Hematocrit 45.5 % (42.0-52.0); Hemoglobin 15.2 g/dL (14.0-18.0); Mean Corpuscular HGB Conc 33.4 g/dl (32-36); Mean Corpuscular Hemoglobin 30.5 pg (26-34); Mean Corpuscular Volume 91.4 fl (80-100); Platelet Count Result 299 k/mm3 (150-375); Red Blood Count 4.98 M/mm3 (4.6-6.20); White Blood Count 11.7 K/mm3 (4.5-10.0)
[2025-02-21 09:54] LABS: Add Urine Microscopic? NO; Appearance Urine Clear (Clear); Glucose Urine UA Negative (Negative); Leukocyte Esterase Ur Negative LEU/UL (Negative); Nitrate Urine Negative (Negative); Specific Grav Ur 1.023 (1.001-1.035)
[2025-02-21 10:03] LABS: INR 1.1; Prothrombin Time 14.3 Seconds (11.1-14.7)
[2025-02-21 10:04] LABS: Partial Thromboplastin Time 30.2 Seconds (22.3-36.8)
[2025-02-21 10:10] LABS: Hemoglobin A1C 5.8 % (<5.7)
[2025-02-21 10:14] LABS: Anion Gap 11 mmol/L (4-12); Blood Urea Nitrogen 22 mg/dL (9-20); Calcium 9.4 mg/dL (8.4-10.2); Carbon Dioxide 23 mmol/L (22-30); Chloride 107 mmol/L (98-107); Estimated Glomerular Filt Rate > 60; Glucose 116 mg/dL (65-110); Potassium 4.2 mmol/L (3.4-5.0); Sodium 141 mmol/L (137-145)
== END 2025-02-21 08:00 | disposition home or self-care (01) ==
LOC: ANHSURGERY 08:04
PROVIDERS: PCP Family Medicine; Visit Provider Neurological Surgery
DX: Z01.818 Encounter for other preprocedural examination (principal); M48.062 Spinal stenosis, lumbar region with neurogenic claudication; I10 Essential (primary) hypertension; R94.31 Abnormal electrocardiogram [ECG] [EKG]
CPT/HCPCS: 36415; 80048; 81003; 83036; 85027; 85610; 85730; 86850; 86900; 86901; 93005

== ENCOUNTER 2025-02-28 15:44 | Inpatient (IN) | payer MEDICARE, OTHER, SELFPAY ==
[2025-02-21 08:20] VITALS: BP 115/60; PULSE 53; RESP 16; TEMP 37; O2SAT 98; BMI 41.2
--- NOTE | 2025-02-21 08:34 | PC.NURSE ---
Report to the Outpatient Waiting Room, entrance under the green pavilion located off [facility], at time __7:30AM ___ on date _02/28/25____. Planned Procedure Time: __9:30AM____.? Time changes happen often and if your time is changed the preop area will call you the afternoon before. - You and your visitor will be asked to self-screen and do not enter if you have any COVID symptoms. Please call surgeon if you need to reschedule. - A mask is optional within the hospital at this time. Patients may have clear liquids (water, carbonated beverages, clear teas, apple juice) until 3 hours prior to surgery (6:30AM) with a maximum of 20 ounces. - No food from midnight until time of surgery and no smoking, or chewing tobacco (or any form of nicotine). No chewing gum, candy or mints. Take only the following medications with a SIP of water on the morning of surgery: ___AMLODIPINE MAY TAKE ONDANSETRON NEEDED DO NOT STOP ANY OF YOUR OTHER PRESCRIPTION MEDICATIONS PRIOR TO SURGERY EXCEPT THE FOLLOWING Hold all vitamins and supplements for 3 days per anesthesiologist. LAST DOSE 02/24/25 Medications to discontinue per physician ___HOLD ASPIRIN & ALL NSAIDS 7 DAYS PRE-OP PER DR BAHENA Date to take last dose 02/20/25 Please no make-up, nail gambian, hairspray, perfume, deodorant, or body powder the day of surgery.? No jewelry (including any body piercings) or valuables the day of surgery, leave them at home.? Please take a shower or bath the night before, or the morning of, surgery with an antibacterial soap.? Wear comfortable, loose fitting clothing.? - Jewelry must be removed prior to entering the operating room.? Rings and piercings that are not removed may be cut off. - The hospital will not accept responsibility for valuables.? - Please leave all valuables, including medications, at home the day of surgery. If you are going home after surgery, a licensed mobile lounge driver must drive you home.? - NO public transportation without another adult if you receive anesthesia. - We recommend that an adult stay with you for 24 hours following discharge. - We also recommend that you do not drive, make important decision, drink alcoholic beverages, or take any drugs that were not prescribed by your health care provider for at least 24 hours after your discharge time. Follow any additional instructions given to you from your surgeon. Telephone instructions given to PATIENT and asked if any additional questions and then verbalized understanding. Patient advised to call surgeon office or pre surgery nurse liaison [phone] if any additional questions.
[2025-02-28] VITALS (19 sets, daily range): BP systolic 98–125; BP diastolic 53–84; PULSE 43–70; RESP 12–15; TEMP 35.9–36.8; O2SAT 98–100; BMI 40.4
--- NOTE | ~2025-02-28 | XR_ITS ---
XR fluoroscopy no charge Indication:L1-2 posterior lumbar interbody fusion TECHNIQUE: Fluoroscopy used during L1-2 posterior lumbar interbody fusion performed by [Marky He MD] on 02/28/2025. 7 seconds of fluoroscopy time with 3 fluoroscopic images captured. FINDINGS: Correlate with procedure note. IMPRESSION: Fluoroscopy used during L1-2 posterior lumbar interbody fusion. Reviewed, dictated and finalized at location O.
--- OUTSIDE RECORDS SUMMARY | 2025-02-28 00:54 | XMS_ITS | Clinical Summary ---
Author Organization [facility] Building A Address [address] [place] [address] Care Team Providers Care Bus System Operator Name Role Phone Dylan Samuel DPM Unavailable [phone] Marques Rowland MD Unavailable [phone] Marky He MD Unavailable [phone] Juju Bautista MD Unavailable [phone] Mg Keenan MD Unavailable [phone] Paul Fulton NP Unavailable [phone] Jose Adamson MD Primary Care Provider Allergies [...] complication, without long-term current use of insulin ([facility]) USE 1 STRIP TO CHECK GLUCOSE ONCE DAILY 100 each 1 11/16/19 25 Active lancets (onetouch ultrasoft) miscIndications :Type 2 diabetes mellitus without complication, without long-term current use of insulin ([facility]) Use to check blood sugar once daily [...] to underlying condition with hyperglycemia, unspecified whether extermination inspector insulin use ([facility]) TAKE 4 TABLETS BY MOUTH ONCE DAILY [...] complication, without long-term current use of insulin ([facility]) Inject 0.5 mL (5 mg total) under the skin once a week 2 mL 2 11/26/19 25 025 Discontinued metFORMIN XR (GLUCOPHAGE XR) 500 mg 24 hr tabletIndicatio ns:Diabetes mellitus due to underlying condition with hyperglycemia, unspecified whether extermination inspector insulin use ([facility]) TAKE 4 TABLETS BY MOUTH ONCE DAILY [...] 10/12/2024 Assessment & Plan (04/25/2024 12:07 PM COW WASHER): - new diagnosis - found on screening [...] 10/12/2024 Assessment & Plan (04/25/2024 5:22 PM COW WASHER): - new diagnosis - has T2DM and [...] - referral placed to pain management at [facility] MRI lumbar spine without contrast 03/2024 [...] L1-L2 Assessment & Plan (04/25/2024 11:59 AM COW WASHER): - chronic condition, stable - follows with [...] 10/19/2023 Assessment & Plan (04/25/2024 11:46 AM COW WASHER): - chronic condition, stable status - takes [...] - Continue to follow-up with his neurosurgeon/plastic surgeon/oil painter as they direct - he used [...] symptoms. Assessment & Plan (05/10/2023 7:26 PM COW WASHER): Continue to follow-up with his neurosurgeon/plastic surgeon/oil painter as they direct Assessment & Plan (03/29/2023 9:09 PM CDT): Follow-up with his neurosurgeon, plastic surgeon, pain management as they direct. Non-alcoholic fatty liver disease 04/27/2022 Assessment & Plan (04/27/2022 8:32 PM COW WASHER): Secondary to diabetes and obesity. Liver function [...] days Assessment & Plan (04/25/2024 11:58 AM COW WASHER): Chronic condition which well controlled, improved Initial [...] surgery - he does not have a watch mechanic Pes anserinus bursitis of right knee 08/09/2021 [...] hypertension Assessment & Plan (04/25/2024 11:46 AM COW WASHER): Wt Readings from Last 3 Encounters: 04/25/24 [...] hypertension Assessment & Plan (05/10/2023 7:25 PM COW WASHER): Patient is encouraged to lose weight with [...] discussed. Assessment & Plan (06/07/2021 11:07 AM COW WASHER): Patient is encouraged to lose weight with [...] management Assessment & Plan (04/22/2018 11:02 PM COW WASHER): Vascular referral when needed. Rotator cuff tear [...] concerns Assessment & Plan (04/22/2018 11:02 PM COW WASHER): Continue oxybutynin. Assessment & Plan (06/22/2017 11:22 PM COW WASHER): Continue oxybutynin. Assessment & Plan (05/25/2017 9:16 PM COW WASHER): Well controlled on oxybutynin. Hypertension associated with [...] 10/12/2024 Assessment & Plan (04/25/2024 12:12 PM COW WASHER): Blood Pressure Management BP Readings from Last [...] 03/30/2023 Assessment & Plan (05/10/2023 7:25 PM COW WASHER): Pressure well controlled on amlodipine, hydrochlorothiazide, lisinopril Assessment & Plan (03/29/2023 9:06 PM CDT): Blood pressure well controlled on amlodipine, hydrochlorothiazide, lisinopril Assessment & Plan (09/22/2022 1:59 PM CDT): Controlled with medication - continue treatment plan per PCP Assessment & Plan (08/15/2022 11:47 AM COW WASHER): Blood pressure well controlled on amlodipine, hydrochlorothiazide, lisinopril Assessment & Plan (05/05/2022 1:53 PM COW WASHER): Well controlled on the current regimen. Avoidance [...] recommended. Assessment & Plan (06/20/2021 10:18 AM COW WASHER): Recommend DASH diet, heart-healthy lifestyle, exercise. Discussed the risks of hypertension. Assessment & Plan (06/07/2021 11:06 AM COW WASHER): Add amlodipine 5 mg daily. Continue lisinopril [...] LBP. Assessment & Plan (04/22/2018 11:01 PM COW WASHER): Well controlled on the current regimen. Avoidance of salt, proper body weight, and routine exercise recommended. Assessment & Plan (06/22/2017 11:22 PM COW WASHER): Well controlled on the current regimen. Avoidance of salt, proper body weight, and routine exercise recommended. Assessment & Plan (05/25/2017 9:15 PM COW WASHER): Well controlled on the current regimen. Avoidance of salt, proper body weight, and routine exercise recommended. 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 Assessment & Plan (05/25/2017 9:15 PM COW WASHER): Well controlled on his Flomax and finasteride. [...] stomach. Assessment & Plan (04/25/2024 12:00 PM COW WASHER): - chronic condition, stable status - often [...] stomach. Assessment & Plan (06/07/2021 11:07 AM COW WASHER): Controlled on omeprazole. Assessment & Plan (04/08/2021 [...] modifications Assessment & Plan (04/22/2018 11:01 PM COW WASHER): Continue current PPI and the patient is aware of the long-term risks posed by chronic PPI usage. Magnesium level will be checked periodically. Calcium supplementation recommended. Assessment & Plan (06/22/2017 11:22 PM COW WASHER): Continue current PPI and the patient is aware of the long-term risks posed by chronic PPI usage. Magnesium level will be checked periodically. Calcium supplementation recommended. Assessment & Plan (05/25/2017 9:16 PM COW WASHER): Continue current PPI and the patient is aware of the long-term risks posed by chronic PPI usage. Magnesium level will be checked periodically. Calcium supplementation recommended. Lumbar spinal stenosis 03/16/2017 Overview (03/19/2018): Dr Zamorano injections prn. Annia/hydrocodone Assessment & Plan (05/05/2022 1:53 PM COW WASHER): Okay to proceed with lumbar fusion. Assessment & Plan (09/29/2018 9:29 PM CDT): Follow-up with his surgeon and oil painter as they direct. Would recommend slowly weaning off of gabapentin. Assessment & Plan (08/31/2018 3:37 PM CDT): Pt wishes to proceed forward with upcoming lumbar fusion recommended by spinal surgeon. Further clearance recommendations is listed in detail under preop plan of care Assessment & Plan (04/22/2018 11:02 PM COW WASHER): Follow-up with his oil painter as he directs. Assessment & Plan (05/25/2017 9:17 PM COW WASHER): Would recommend using only Tylenol codeine as needed. Refer back to pain management as needed. 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 Assessment & Plan (08/15/2022 11:47 AM COW WASHER): Endocrinology referral. Assessment & Plan (05/05/2022 1:55 PM COW WASHER): Needs follow-up imaging and endocrinology referral. Will plan on this after his lumbar back surgery completed. Resolved Problems Problem Noted Date Diagnosed Date Resolved Date Type 2 diabetes mellitus 04/20/2023 Medicare annual wellness visit, subsequent 05/05/2022 10/19/2023 Assessment & Plan (05/10/2023 7:25 PM COW WASHER): We discussed a comprehensive list of medical [...] needed. Assessment & Plan (05/05/2022 1:56 PM COW WASHER): We discussed a comprehensive list of medical conditions and proposed recommendations for each. We discussed the importance of increased exercise, fall prevention, proper nutrition, and suggested joining [facility] to accomplish most of these goals. Patient was given an age appropriate Medicare preventive services checklist. Please see the EMR regarding details of their health risk assessment and preventive services checklist. Will see him back in 4 months with lab sooner if needed. Gall stones 04/27/2022 10/19/2023 Assessment & Plan (04/27/2022 8:31 PM COW WASHER): Asymptomatic now, but he will need elective cholecystectomy once he recover from his back surgery which is scheduled 04/29/2022. Leukocytosis 03/20/2022 10/19/2023 Acute pancreatitis 03/19/2022 Assessment & Plan (05/05/2022 1:55 PM COW WASHER): Likely due to cholelithiasis. Follow-up with GI as they direct. Will need eventual surgical referral for cholecystectomy Assessment & Plan (04/27/2022 8:29 PM COW WASHER): Symptoms resolved. Differential was either due to [...] (09/25/2020): Added automatically from request for surgery [id number] Biceps tendinitis of right upper extremity 06/15/2020 [...] 10/19/2023 Assessment & Plan (04/22/2018 11:02 PM COW WASHER): Trial of terbinafine and call back if no improvement. Check hepatic function panel in 30 in 60 days. Chronic venous hypertension (idiopathic) without complications of right lower extremity 07/27/2017 10/19/2023 Edema 03/16/2017 10/19/2023 Assessment & Plan (05/25/2017 9:22 PM COW WASHER): Hopefully stopping his Actos will decrease his [...] needed. Assessment & Plan (04/22/2018 11:03 PM COW WASHER): Flu shot each March. Tetanus booster every 10 years. Shingrix recommended. Colonoscopy due April 2027. Six months with lab sooner if needed. Assessment & Plan (05/25/2017 9:16 PM COW WASHER): Flu shot each March. Tetanus booster every [...] pancreatitis. Assessment & Plan (05/10/2023 7:25 PM COW WASHER): A1c, LDL, and blood pressure currently well controlled on current regimen. Check a yearly diabetic eye exam and blood sugars daily. Monofilament testing is intact. Assessment & Plan (03/29/2023 9:06 PM CDT): A1c, LDL, and blood pressure currently well controlled on current regimen. Check a yearly diabetic eye exam and blood sugars daily. Monofilament testing is intact. Assessment & Plan (08/15/2022 11:47 AM COW WASHER): A1c, LDL, and blood pressure currently well controlled on current regimen. Check a yearly diabetic eye exam and blood sugars daily. Monofilament testing is intact. Assessment & Plan (05/05/2022 1:54 PM COW WASHER): A1c under goal. Avoid Ozempic in the [...] control. Assessment & Plan (04/22/2018 11:01 PM COW WASHER): A1c, LDL, and blood pressure currently well controlled on current regimen. Check a yearly diabetic eye exam and blood sugars daily. Take a daily aspirin. Monofilament testing is abnormal. Assessment & Plan (06/22/2017 11:22 PM COW WASHER): A1c, LDL, and blood pressure currently well [...] intact. Assessment & Plan (05/25/2017 9:15 PM COW WASHER): With his lower extremity edema and multiple [...] Description 02/01/2025 10:45 AM CDT Office Visit [facility] Primary Care at [address] [address] Jose Adamson MD Hypertension associated with type 2 diabetes mellitus (HCC) (Primary Dx); Morbid obesity with BMI of 40.0-44.9, adult (HCC); Gastroesophageal reflux disease without esophagitis; Type 2 diabetes mellitus without complication, without long-term current use of insulin (HCC); Hepatitis C virus infection cured after antiviral drug therapy; History of fusion of lumbar spine 01/29/2025 Results Follow-Up [facility] Primary Care at [address] [address] Jose Adamson MD CBC without differential, Thyroid Function [place], Hemoglobin A1c, Additional followed-up results: 3 01/27/2025 Results Follow-Up [facility] Gastroenterology at [address] [place] [id number] Dee Padilla PA Hepatitis C (HCV) RNA PCR, quantitative Blood 01/26/2025 1:15 PM CDT Lab [address] [address] Type 2 diabetes mellitus without complication, without long-term current use of insulin (HCC); Hypertension associated with type 2 diabetes mellitus (HCC); Morbid obesity with BMI of 40.0-44.9, adult (HCC) 01/21/2025 11:45 AM CDT Lab [address] [address] Chronic hepatitis C without hepatic coma (HCC) 01/19/2025 Telephone [facility] Primary Care at [address] [address] Jose Adamson MD Medical Question/Miscellane ous from Last 3 Months Immunizations Immunization Administration [...] Colon Relation Name Status Comments Father Alin Lynn Alive Mother Becca Colon Alive Social History [...] on file Legal Sex Male 12:35 AM COW WASHER Gender Identity Male 04/03/2021 10:40 PM CDT Sexual Orientation Straight 05/29/2020 10 :35 AM COW WASHER 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 Not on file Not on fi Obstetrics History Last Filed Vital Signs Vital Sign Reading Time Taken Comments Blood Pressure 126/74 02/01/2025 10:37 AM CDT Pulse 58 02/01/2025 10:37 AM CDT Temperature 36.7 C (98 F) 02/01/2025 10:37 AM CDT Respiratory Rate 24 06/02/2024 11:2 4 AM COW WASHER Oxygen Saturation 97% 02/01/2025 10: 37 AM CDT Inhaled Oxygen Concentration - - Weight 131.2 kg (289 lb 3.2 oz) 025 10:37 AM CDT Height 182.9 cm (6') 02/01/2025 10:37 AM CDT Body Mass Index 39.22 02/01/2025 10:37 AM CDT Plan of Treatment Health Maintenance Due Date Last Done Comments Covid-19 Vaccine (2024- 6 season) 2025 04/08/2023, 04/17/2022, 11/08/2021, Additional [...] Additional history exists Lipid Panel 01/26/2026 01/26/2025, 050 12/2024, 04/05/2024, Additional history exists eGFR 01/26/2026 01/26/2025, 050 12/2024, 07/27/2024, Additional history exists Depression Screening [...] history exists Medical Devices Implanted Type Area Submarine Operator Device Identifier Shelf Expiration Date Model / Serial / Lot [employer] Hem-O-Meliza Ligate Nonabsorbable Cartridge Medium Large Latex Free [id number] - [id number] Implanted:Qty: 1 on 07/28/2022 by Norris Dyson MD at [facility] N/A: Abdomen [employer] 05/06/2023 [id number] / [id number] Procedures Procedure Name Priority Date/Time Associated [...] to underlying condition with hyperglycemia, unspecified whether residential insulin use (HCC) PSA SCREEN Routine 10/12/2024 [...] ORDERABLES Fi nal Result Performing Organization Address City/[facility] Co de Phone Number IN[facility] RODRIGUEZ (TONY) 1 [facility] [place] [address] * Thyroid Function [place] (01/26/2025 1:20 PM CDT) Pathologist [facility] TSH 1.13 0.30 - 4.20 mcIUnit/mL [facility] (TONY) Blood 01/26/2025 1:20 PM CDT 01/26/2025 1:42 PM CDT Jose Adamson MD LAB BLOOD ORDERABLES Fi nal Result Performing Organization Address [facility] de Phone Number IN[facility]ID RODRIGUEZ (TONY) 1 [facility] [place] [address] * (ABNORMAL) CBC without differential (01/26/2025 1:20 PM CDT) WBC 11.16(H) 3.80 - 9.90 K/cumm Hgb 15.5 13.0 - 17.5 g/dL [facility] ([facility]) Hct 46.9 38.9 - 50.3 % [facility] ([place]) Plt 263 150 - 400 K/cumm [facility] ([place]) MPV 11.5 9.1 - 12.3 fL [facility] ([place]) RBC 5.11 4.30 - 5.80 M/cumm [facility] ([place]) MCV 91.8 81.3 - 96.4 fL [facility] ([place]) MCH 30.3 27.1 - 33.3 pg [facility] ([place]) MCHC 33.0 32.3 - 35.7 g/dL [facility] ([place]) RDW CV 13.4 11.1 - 14.9 % [facility] ([place]) RDW SD 46.0 35.7 - 48.1 fL [facility] (AM[place]) NRBC abs 0.00 0.00 - 0.01 K/cumm [facility] ([place]) Blood 01/26/2025 1:20 PM CDT 01/26/2025 1:42 PM CDT Jose Adamson MD LAB BLOOD ORDERABLES [facility] Result Performing Organization Address [facility] Co de Phone Number [facility] (AM[place]) 1 [facility] Department [place] [address] * (ABNORMAL) Hemoglobin A1c (01/26/2025 1:20 PM CDT) Hgb A1C 5.9(H) 4.0 - 5.6 % [facility] ([place]) Estimated Average Glucose 123 mg/dL [facility] ([place]) Comment: The ADA recommends reporting an estimated Average Glucose (eAG) with all Hemoglobin A1c results using the equation derived from a study of 507 normal and diabetic adults. Minority populations were underrepresented and children were not included. (Diabetes Care 31:9914-1568, 2008). The eAG is not equivalent to a fasting glucose. Testing performed by: [facility], [facility], [place], [address] Blood 01/26/2025 1:20 PM CDT 01/26/2025 1:42 PM CDT Jose Adamson MD LAB BLOOD ORDERABLES nal Result Performing Organization Address [facility] Co de Phone Number [facility] ([place]) 1 [facility] Department [place] [address] * (ABNORMAL) Lipid panel (01/26/2025 1:20 PM CDT) Cholesterol 148 30 - 199 mg/dL [facility] ([place]) Comment: Interpretive Data Ages < or = [...] mg/dL High: >160 mg/dL Calculated using the Riddle LDL-C estimating equation. This equation was implemented [...] last revised on 2024. Testing performed by: [place], [address] Non-HDL Cholesterol 112 mg/dL [facility] ([place]) Comment: Interpretive Data Ages < or = [...] last revised on 2018. Testing performed by: [place], [address] Chol/HDL ratio 4 DIANANE Jarrett RODRIGUEZ (AM[place]) Comment:Testing performed by : [place], [address] Blood 01/26/2025 1:20 PM CDT 01/26/2025 1:42 PM CDT Narrative [facility] ([place]) - 01/26/2025 2:24 PM CDT Has the patient been fasting for 8 hours or more?->No us Jose Adamson MD LAB BLOOD ORDERABLES Fi nal Result [facility] ([place]) [address] [place] [address] Department [place] [address] * Comprehensive metabolic panel (01/26/2025 1:20 PM [...] classification and Diagnosis of Diabetes Diabetes Care 2021; 46: S19-S40. Current interpretive data was last [...] 1:20 PM CDT 01/26/2025 1:42 PM CDT us Jose Adamson MD LAB BLOOD ORDERABLES Fi nal Result [facility] ([place]) 1 [facility] Department [place] [address] * Hepatitis C (HCV) RNA PCR, quantitative Blood (01/21/2025 11:49 AM CDT) Pathologist [facility] HCV RNA result Not Detected [facility] Comment: The quantifiable range of this assay is 15 IU/mL to 100,000,000 IU/mL (1.18 log IU/mL to 8.00 log IU/mL). Testing was performed by the BORIS 6800 HCV Test ([employer] Testing performed at [facility] Current Interpretive Data was last revised on 2021 Testing performed by: [facility], [address] [place] [address] Blood 01/21/2025 11:4 9 AM CDT 01/21/2025 6:04 PM CDT Paul Fulton NP LAB MICROBIOLOGY - GENERAL ORDERABLES Final Result Performing Organization Address City/[facility]/ZIP Co de Phone Number [facility] ([place]) 1 [facility] Department [place] [address] [facility] * PSA screen (10/12/2024 12:49 PM CDT) Pathologist [facility] PSA-Total 0.12 <=5.40 ng/mL Comment: Interpretive Data [...] LAB BLOOD ORDERABLES Fi nal Result [facility] MICHAEL ([place]) [address] Department [place] [address] * Albumin Creatinine Ratio, Urine (10/12/2024 12:49 PM CDT) Albumin Ur <12.0 mg/L Comment: Interpretive Data No reference range established. Current interpretive data was last revised 2018. Testing performed by: [facility], [address] [place] [address]., [id number] Creatinine Ur 126.3 mg/dL [facility] RODRIGUE[facility] ([place]) Comment: Interpretive Data No reference range established. Current interpretive data was last revised 2018. Testing performed by: [facility], [address] [place] [address]., [id number] Albumin Creatinine Ratio, Ur <10 1 - 29 mg/g [facility] RODRIG[facility] (TONY) Comment:Testing performed by : [address] [address] Urine 10/12/2024 12:4 9 PM CDT 10/12/2024 7:06 PM CDT us Jose Adamson MD LAB URINE ORDERABLES nal Result [facility] ROD[facility] ([place]) 1 [facility] [place] [address] * Diabetic Foot Exam (09/30/2024) us Historical [...] chronic pancreatitis. Procedure Note Jordan Ozuna II, DO - 09/29/2022 EXAMINATION: CT ABDOMEN WO CONTRAST [...] Jordan Ozuna II, D.O. Adriano Tipton MD IM CT PROCEDURES Final Result * COLONOSCOPY REPORT (04/13/2017) Anatomical Region Laterality Modality Other Provider Scanning GI PROCEDURE ORDERABLES Final Result from Last 3 Months or Most Recently Relevant to Health Maintenance Insurance [employer] MEDICARE PHYSICI[employer] DEPT OF LABOR - [facility] Advance Directives For more information, please contact: [phone] * Full Code (Latest Code Status on File) Date Activated Date Inactivated Comments 03/19/2022 7:06 PM 03/25/2022 3:32 PM * Full Code Date Activated Date Inactivated Comments 11/04/2020 3:24 PM 11/08/2020 6:44 PM * Full Code Date Activated Date Inactivated Comments 11/04/2020 3:24 PM 11/04/2020 3:24 PM Care Teams Bus System Operator Relationship Specialty Start Date End Date Jose Adamson MD [address] [address] PCP - General Family Medicine 11/15/24 Dylan Samuel DPM [address] [place] [address] Consulting Physician Orthotics 09/20/21 Marques Rowland MD [address] [place] [address] Consulting Physician Gastroenterology 03/25/22 Marky He MD [address] [place] [address] Consulting Physician Neurosurgery 07/18/22 Juju Bautista MD [address] [facility] [place] [address] Surgeon Anesthesiology 10/19/23 Mg Keenan MD [address] [id number] [place] [address] Consulting Physician Plastic Surgery 10/19/23 Paul Fulton NP [address] [place] [address] [place] [address] Nurse Practitioner Gastroenterology 10/25/24
--- OUTSIDE RECORDS SUMMARY | 2025-02-28 00:54 | XMS_ITS | Encounter Summary ---
Author Organization [facility] Address [address] [place] [address] Phone Care Team Providers Care Mud Boss Name Role Phone Nicola Patel MD Primary Care Provider [phone] Leonel Erickson MD Unavailable [phone] Dylan Samuel DPM Unavailable [phone] Marques Rowland MD Unavailable [phone] Marky He MD Unavailable [phone] Jose Adamson MD Primary Care Provider Juju Bautista MD Unavailable [phone] Mg Keenan MD Unavailable [phone] Paul Fulton NP Unavailable [phone] Jose Adamson MD Primary Care Provider Encounter Details Date Type Department Care Team (Late st Contact Info) Description 10/19/[address] [facility] [address] 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 Not on fi le documented as of this encounter Plan of Treatment Not on file documented as of this encounter Visit Diagnoses Not on filedocumented in this encounter Care Teams Mud Boss Relationship Specialty Start Date End Date Nicola Patel MD PCP - General Internal Medicine 03/16/17 10/18/23 Jose Adamson MD [address] [place] [address] PCP - General Family Medicine 10/19/23 11/14/24 Jose Adamson MD [address] [place] [address] PCP - General Family Medicine 11/15/24 Leonel Erickson MD Consulting Physician Urology 11/08/20 10/18/23 Dylan Samuel DPM [address] [place] [address] Consulting Physician Orthotics 09/20/21 Marques Rowland MD [address] [place] [address] Consulting Physician Gastroenterology 03/25/22 Marky He MD [address] [place] [address] Consulting Physician Neurosurgery 07/18/22 Juju Bautista MD [address] [facility] [place] [address] Surgeon Anesthesiology 10/19/23 Mg Keenan MD [address] [facility] [phone] [place] [address] Consulting Physician Plastic Surgery 10/19/23 Paul Fulton NP [address] [facility] [place] [address] Nurse Practitioner Gastroenterology 10/25/24 documented as of this encounter
--- OUTSIDE RECORDS SUMMARY | 2025-02-28 00:54 | XMS_ITS | Encounter Summary ---
Author Organization [facility] Address [address] [place] [address] Care Team Providers Care Attendant Coin Operated Laundry Name Role Phone Jf Wyatt Primary Care Provider UnavailJf Trivedi Primary Care Provider UnavailNicola Hill MD Primary Care Provider [phone] Leonel Erickson MD Unavailable [phone] Dylan Samuel DPM Unavailable [phone] Marques Rowland MD Unavailable [phone] Marky He MD Unavailable [phone] Jose Adamson MD Primary Care Provider Juju Bautista MD Unavailable [phone] Mg Keenan MD Unavailable + [phone] Paul Fulton NP Unavailable [phone] Jose Adamson MD Primary Care Provider Reason for Referral * (Routine) - Closed Specialty Diagnoses / Procedures Referred By Gonzalez harmon Referred To Contact Procedures Cystourethroscopy - [facility] Health Information Management [address] [place] [address] Phone: tel: fax: [facility] Referral ID Status Reason Start Date Expiration Date Visits Re quested Visits Authorized [id number] Closed 10/22/2018 05/02/2020 1 1 IDER ENGAGEMENT EXECUTIVE Encounter Details Date Type Department Care Team (Late st Contact Info) Description 06/22/2015 Orders Only [facility] Health Information Management [address] [place] [address] Nicola Patel MD [address] [facility] [address], [place] [address] Social History Tobacco Use Types Packs/Day Years Used Date Smoking Tobacco: Never Alcohol Use Standard Drinks/Week Comments Yes 0 (1 standard drink = 0.6 oz pur e alcohol) Sex and Gender Information Value Date Recorded Sex Assigned at Not on file Legal Sex Male 12:35 AM PROVIDER ENGAGEMENT EXECUTIVE Gender Identity Male 04/03/2021 10:40 PM CDT Sexual Orientation Straight 05/29/2020 10 :35 AM PROVIDER ENGAGEMENT EXECUTIVE documented as of this encounter Plan of Treatment Not on file documented as of this encounter Procedures Procedure Name Priority Date/Time Associated Diagnosis Comments CYSTOURETHROSCOPY Routine 06/22/2015 documented in this encounter Results * Cystourethroscopy - (06/22/2015) Historical Provider MD JUAREZ PROCEDURE ORDERABLES F inal Result documented in this encounter Visit Diagnoses Not on filedocumented in this encounter Care Teams Attendant Coin Operated Laundry Relationship Specialty Start Date End Date Jf Wyatt PCP - General 09/05/16 03/15/17 Jf Wyatt PCP - General 11/17/14 09/04/16 Nicola Patel MD PCP - General Internal Medicine 03/16/17 10/18/23 Jose Adamson MD [address] [place] [address] PCP - General Family Medicine 10/19/23 11/14/24 Jose Adamson MD [address] [place] [address] PCP - General Family Medicine 11/15/24 Leonel Erickson MD Consulting Physician Urology 11/08/20 10/18/23 Dylan Samuel DPM [address] [place] [address] Consulting Physician Orthotics 09/20/21 Marques Rowland MD [address] [place] [address] Consulting Physician Gastroenterology 03/25/22 [place] [address] [place] [address] Consulting Physician Neurosurgery 07/18/22 Juju Bautista MD [address] [place] [address] Surgeon Anesthesiology 10/19/23 Mg Keenan MD [address] [phone] [place] [address] Consulting Physician Plastic Surgery 10/19/23 Paul Fulton NP [address] [place] [address] [place] [address] Nurse Practitioner Gastroenterology 10/25/24 documented as of this encounter
--- OUTSIDE RECORDS SUMMARY | 2025-02-28 00:55 | XMS_ITS | Encounter Summary ---
Author Organization [facility] Address [address] [place] [address] Care Team Providers Care Healthcare Network Consultant Name Role Phone Dylan Samuel DPM Unavailable [phone] Marques Rowland MD Unavailable [phone] Marky He MD Unavailable [phone] Juju Bautista MD Unavailable [phone] Mg Keenan MD Unavailable [phone] Paul Fulton NP Unavailable [phone] Jose Adamson MD Primary Care Provider Encounter Details Date Type Department Care Team (Latest Contact Info) Description 01/27/2025 Results Follow-Up [facility] Gastroenterology at [address] [place] [address] Dee Padilla PA [address] [place] [address] [address] [place] [address] Hepatitis C (HCV) RNA PCR, quantitative Blood [...] on file Legal Sex Male 12:35 AM STOVE TENDER Gender Identity Male 04/03/2021 10:40 PM CDT Sexual Orientation Straight 05/29/2020 10 :35 AM STOVE TENDER 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 Not on file Not [...] on filedocumented in this encounter Care Teams Healthcare Network Consultant Relationship Specialty [place] [address] [place] [address] [address] [place] [address] PCP - General Family Medicine 11/15/24 Dylan Samuel DPM [address] [place] [address] Consulting Physician Orthotics 09/20/21 Marques Rowland MD [address] [place] [address] Consulting Physician Gastroenterology 03/25/22 Marky He MD [address] [place] [address] Consulting Physician Neurosurgery 07/18/22 Juju Bautista MD [address] [facility] [place] [address] Surgeon Anesthesiology 10/19/23 Mg Keenan MD [address] [facility] [phone] [place] [address] Consulting Physician Plastic Surgery 10/19/23 Paul Fulton NP [address] [place] [address] [place] [address] Nurse Practitioner Gastroenterology 10/25/24 documented as of this encounter
--- OUTSIDE RECORDS SUMMARY | 2025-02-28 00:55 | XMS_ITS | Encounter Summary ---
Author Organization [facility] Healthcare Address [address] [place] [address] Care Team Providers Care Bingo Attendant Name Role Phone Dylan Samuel DPM Unavailable [phone] Marques Rowland MD Unavailable [phone] Marky He MD Unavailable [phone] Juju Bautista MD Unavailable [phone] Mg Keenan MD Unavailable [phone] Paul Fulton NP Unavailable [phone] Jose Adamson MD Primary Care Provider Encounter Details Date Type Department Care Team (Late st Contact Info) Description 01/29/2025 Results Follow-Up [facility] Primary Care at [address] [address] Jose Adamson MD [address] [place] [address] [address] [place] [address] CBC without differential, Thyroid Function [place], Hemoglobin A1c, Additional followed-up results: 3 Social [...] on file Legal Sex Male 12:35 AM QUALITY TESTER Gender Identity Male 04/03/2021 10:40 PM CDT Sexual Orientation Straight 05/29/2020 10 :35 AM QUALITY TESTER 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 Not on file [...] on filedocumented in this encounter Care Teams Bingo Attendant Relationship Specialty Start Date End Date Jose Adamson MD [address] [facility] [address] [place] [address] PCP - General Family Medicine 11/15/24 Dylan Samuel DPM [address] [place] [address] Consulting Physician Orthotics 09/20/21 Marques Rowland MD [address] [place] [address] Consulting Physician Gastroenterology 03/25/22 [place] [address] [place] [address] [place] [address] Consulting Physician Neurosurgery 07/18/22 Juju Bautista MD [address] [place] [address] Surgeon Anesthesiology 10/19/23 Mg Keenan MD [address] [facility] [phone] [place] [address] Consulting Physician Plastic Surgery 10/19/23 Paul Fulton NP [address] [facility] [place] [address] Nurse Practitioner Gastroenterology 10/25/24 documented as of this encounter
--- OUTSIDE RECORDS SUMMARY | 2025-02-28 00:56 | XMS_ITS | Clinical Summary ---
Author Organization [facility] Address [address] [place] [address] Phone Care Team Providers Care Shrinker Name Role Phone Nicola Patel MD Primary Care Provider [phone] Allergies No known active allergies Medications tamsulosin [...] Comments Blood Pressure 136/84 08/12/2020 1:31 PM HI RANGER OPERATOR Pulse 54 08/12/2020 1:31 PM HI RANGER OPERATOR Temperature 36.6 C (97.8 F) 08/12/2020 1:31 PM HI RANGER OPERATOR Respiratory Rate 18 08/12/2020 1:31 PM HI RANGER OPERATOR Oxygen Saturation 96% 08/12/2020 1:31 PM HI RANGER OPERATOR Inhaled Oxygen Concentration - - Weight 141.5 kg (312 lb) 08/12/2020 1:31 PM HI RANGER OPERATOR Height - - Body Mass Index - [...] to complete this topic Insurance Care Teams Shrinker Relationship Specialty Start Date End Date Nicola Patel MD PCP - General Internal Medicine 08/12/20
--- OUTSIDE RECORDS SUMMARY | 2025-02-28 00:56 | XMS_ITS | Encounter Summary ---
Author Organization [facility] Address [address] [place] [address] Care Team Providers Care Windows System Admin Name Role Phone Dylan Samuel DPM Unavailable [phone] Marques Rowland MD Unavailable [phone] Marky He MD Unavailable [phone] Jose Adamson MD Primary Care Provider Juju Bautista MD Unavailable [phone] Mg Keenan MD Unavailable [phone] Paul Fulton NP Unavailable [phone] Jose Adamson MD Primary Care Provider Encounter Details Date Type Department Care Team (Late st Contact Info) Description 03/22/2024 Orders Only [facility] Information Management [address] [place] [address] Scanning, Provider Social History Tobacco Use Types [...] on file Legal Sex Male 12:35 AM REHABILITATION PROGRAM COORDINATOR Gender Identity Male 04/03/2021 10:40 PM CDT Sexual Orientation Straight 05/29/2020 10 :35 AM REHABILITATION PROGRAM COORDINATOR 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 on file [...] on filedocumented in this encounter Care Teams Windows System Admin Relationship Specialty Start Date End Date Jose Adamson MD [address] [place] [address] PCP - General Family Medicine 10/19/23 11/14/24 Jose Adamson MD [facility] [address] [place] [address] PCP - General Family Medicine 11/15/24 Dylan Samuel DPM [address] [place] [address] Consulting Physician Orthotics 09/20/21 Marques Rowland MD [address] [place] [address] Consulting Physician Gastroenterology 03/25/22 [place] [address] [place] [address] [place] [address] Consulting Physician Neurosurgery 07/18/22 Juju Bautista MD [address] [place] [address] Surgeon Anesthesiology 10/19/23 Mg Keenan MD [address] [facility] [phone] [place] [address] Consulting Physician Plastic Surgery 10/19/23 Paul Fulton NP [address] [facility] [place] [address] Nurse Practitioner Gastroenterology 10/25/24 documented as of this encounter
[2025-02-28] MEDS: LACTATED RINGERS 1,000 ML 30 ML IV CONT ×3 (08:45→13:07)
--- NOTE | 2025-02-28 09:48 | PM.IMHP ---
H&P: HPI History of Present Illness Date/Time: 02/28/25 09:48 Chief Complaint: Back and leg pain Narrative: Hamzah Lynn is a 67-year-old gentleman here today in follow up after cervical traction. He is doing quite well and states that he has improved significantly since the last time he was here. He states that the stretching from the cervical traction in combination with injections from Dr. Bautista (Pain Management) really helped him and that he is now able to use his right hand, which he was not able to the last time he was here. He states that he can fully close his right hand now which is something he was not able to do the last time he was here; he states that the last time he was here, the only way he could make a fist with his right hand was by using his left hand to manually close the right hand. He is not having any significant discomfort in his neck or upper extremities and states that he believes he is doing well enough to avoid surgery at this point in time. He does not report specific or general muscle group weakness, dermatomal numbness, or any new bowel or bladder difficulty. Review of Systems Review of Systems: All systems reviewed & are unremarkable except as noted in HPI and below Denies chills, Denies fever(s), Denies weight gain and Denies weight loss Eyes Denies change in vision and Denies diplopia ENT Denies neck pain and Denies disequilibrium Card Denies chest pain and Denies dyspnea Resp Denies cough and Denies dyspnea GI Denies abdominal pain, Denies change in bowel habits, Denies fecal incontinence and Denies vomiting Denies hematuria, Denies oliguria, Denies difficulty urinating, Denies dysuria, Denies urinary frequency, Denies urinary hesitancy, Denies urinary incontinence and Denies urinary urgency Musc Reports as per HPI, Denies abnormal gait, Denies atrophy, Denies muscle weakness, Denies neck pain, Denies numbness, Denies radiating pain into limb and Denies stiffness Skin/ Breast Reports system reviewed and no additional complaints, except as documented Neuro Reports as per HPI, Denies abnormal gait, Denies burning sensations, Denies focal weakness, Denies numbness, Denies radicular pain and Denies disequilibrium Psych Reports no additional complaints, Denies depression and Denies hopelessness Endo Reports no additional complaints and Denies polyuria Rubin/ Lymph Reports no additional complaints Aller/ Immun Reports no additional complaints Assessment & Plan (1) Injury of Lumbar Spine: Code(s): S34.109A - Unspecified injury to unspecified level of lumbar spinal cord, initial encounter (2) Adjacent segment disease with spinal stenosis: Category: Medical Plan I have recommended Line a that we repeat his MRI of the lumbar spine. If it demonstrates similar or worsening disease at the L1-2 level then I would recommend advancing his fusion up to L1 after adequate decompression that is an L1-2 posterior lumbar interbody fusion with revision of posterior instrumentation below. I described to him that operation, its risks, potential benefits, the operative and postoperative course in detail and answered all his questions personally. We discussed risks including but not limited to permanent neurologic deficit secondary to nerve root injury, need for reoperation secondary to infection, bleeding, CSF leak, adjacent level disease, recurrent residual pathology, instability, malposition migration of the hardware or nonunion, failure of the procedure to relieve his pain or symptoms, persistent pain, medical complications related to anesthesia or surgery, etc.. He indicates understanding and elects to proceed with that operation pending the new MRI. [facility] Past Medical History Medical History History of pancreatitis Pancreatitis (03/2022) Cholelithiasis Hypertension Type 2 diabetes mellitus Chronic narcotic use Osteoarthritis Obesity Benign prostatic hyperplasia with lower urinary tract symptoms Surgical History Surgical History Status post lumbar surgery Status post surgical removal of malignant neoplasm of skin Squamous cell carcinoma. History of transurethral resection of prostate History of lumbar surgery (04/29/22) Previous back surgery Family History Family History Other Malignant neoplasm of prostate Social History Social History (Updated 02/14/25 @ 11:[address] [facility]) Social History: Hamzah is very confident filling out medical forms. In the last 12 months he has not received assistance from an organization or program. Surrogate medical decision maker: Zenobia Hernandezk, spouse. Code status: Full code. Years smoked: 10 Smoking status: Former smoker Alcohol intake: current Substance use: never Substance use type: does not use Do You Feel Safe in your Home?: Yes Lack of Transportation: No Lack of Food: Never True Current Housing: I Have Housing Concerned About Future Housing: No Difficulty Paying Gas/Electric Bills: No Difficulty Paying for Meds: No Currently Unemployed: No Education: High School Diploma/GED Difficulty w/ Childcare or Family Care: No Living arrangements: with family Additional living arrangements comments: Patient lives with his in [place]. 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 Spiritual care concerns: No Meds Home Medications and Allergies Home Medications ?Medication ?Instructions ?Recorded ?Confirmed ?Type lisinopril 40 mg tablet 40 mg PO DAILY 02/17/22 02/21/25 History omeprazole 20 mg capsule,delayed 20 mg PO DAILY Indigestion 02/17/22 02/21/25 History release cyclobenzaprine 10 mg tablet 20 mg PO TID PRN Cramps 04/18/22 02/21/25 History hydrochlorothiazide 25 mg tablet 25 mg PO QAM 04/18/22 02/21/25 History metformin 500 mg tablet,extended 2,000 mg PO QAM 04/18/22 02/21/25 History release 24 hr ondansetron HCl 4 mg tablet 4 mg PO Q6-8H PRN Nausea 04/18/22 02/21/25 History amlodipine 2.5 mg tablet 2.5 mg PO DAILY 02/14/25 02/28/25 History aspirin 81 mg tablet,delayed 81 mg PO DAILY 02/14/25 02/21/25 History release (Adult Low Dose Aspirin) multivitamin 1 tablet PO DAILY 02/14/25 02/21/25 History tirzepatide 7.5 mg/0.5 mL 7.5 mg subcut WEEKLY 02/14/25 02/21/25 History subcutaneous pen injector (Mounjaro) acetaminophen 500 mg tablet 1,000 mg PO Q6H PRN pain 02/21/25 02/21/25 History (Acetaminophen Extra Strength) cyanocobalamin (vitamin B-12) 500 500 mcg PO DAILY 02/21/25 02/21/25 History mcg tablet diphenhydramine 25 2 tablet PO HS PRN sleep 02/21/25 02/21/25 History mg-acetaminophen 500 mg tablet (Tylenol PM Extra Strength) simethicone 125 mg capsule (Gas 250 mg PO BID PRN abdominal 02/21/25 02/21/25 History Relief (simethicone)) distention Allergies Allergy/AdvReac Type Severity Reaction Status Date / Time No Known Allergies Allergy Verified 02/21/25 08:09 Exam Narrative: General: cooperative, no acute distress, well developed, alert and awake Orientation/Consciousness: oriented to person, oriented to place and oriented to time Constitutional Limitations: no limitations Other: The patient is a normally developed, normal appearing male sitting on the examination table in no acute distress. He is awake, alert, and oriented x3 with good fund of knowledge, recall of events, and fluent speech. HENMT Head: normocephalic and atraumatic Ears: external ears normal Face/Nose/Sinus: Normal external nose present Eyes Eyelids: eyelids normal Pupils: Yes Pupils normal by confrontation EOM: EOMs intact bilaterally Neck General: Yes no meningeal signs, Yes supple and Yes no JVD Resp Effort/Inspection: normal respiratory effort and able to speak in complete sentences Cardio Rate: Yes regular rate GI Inspection: No abdominal distension Musc Other: Examination of the back reveals mild paraspinal tenderness. Range of motion of the Back is limited in all planes secondary to discomfort and habitus. Skin General: normal color Neuro General: Yes oriented to person, Yes oriented to place, Yes oriented to time, Yes normal cognition and Yes no meningeal signs Cranial Nerves: Yes CN's II-XII intact bilaterally Other: Motor: Strength is normal, 5/5, throughout all muscle groups of the bilateral Lower extremities except left dorsiflexion which is 4+ out of 5. Sensory: Sensation is intact to light touch throughout the lower extremities bilaterally. Reflexes: Deep tendon reflexes are difficult to elicit at the knees or ankles bilaterally. There is no clonus.. Gait: Gait, station, and transfers are independent and steady for short periods of time and over short distances. Psych Appearance: grossly normal Mental status: Yes mental status grossly normal Mood: congruent mood Affect: Yes normal affect Speech/Movement: Normal speech and movement present Attitude: Yes cooperative Thought Content: Normal thought content present Review of studies: MRI of the lumbar spine was personally reviewed by me. This was done in March of last year and is almost a year old. This demonstrates junctional stenosis at L1-2 above his previous L2-5 fusion. There is significant spondylosis that level as well. There is no appreciable central canal or neural foraminal narrowing at L5-S1. Assessment and Plan Assessment and plan (1) Adjacent segment disease with spinal stenosis: Status: Acute Plan I would recommend advancing his fusion up to L1 after adequate decompression that is an L1-2 posterior lumbar interbody fusion with revision of posterior instrumentation below. I described to him that operation, its risks, potential benefits, the operative and postoperative course in detail and answered all his questions personally. We discussed risks including but not limited to permanent neurologic deficit secondary to nerve root injury, need for reoperation secondary to infection, bleeding, CSF leak, adjacent level disease, recurrent residual pathology, instability, malposition migration of the hardware or nonunion, failure of the procedure to relieve his pain or symptoms, persistent pain, medical complications related to anesthesia or surgery, etc..
--- NOTE | 2025-02-28 09:51 | WPDHPUPDATE1 ---
History and Physical Update Update Date/Time: 02/28/25 09:51 History and Physical has been reviewed, including an updated exam of the patient. There are NO changes in the patient's condition. Risks, benefits, and alternatives have been discussed and questions answered. Patient agrees to proceed with procedure.
--- NOTE | 2025-02-28 09:52 | WPDANESEPPF ---
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 Patient Data Age: 69 Gender: M Height: 1.78 m Weight: 131.2 kg Last Vital Signs Temp 37.0 C 02/21/25 08:20 Pulse 53 L 02/21/25 08:20 Resp 16 02/21/25 08:20 BP 115/60 02/21/25 08:20 Pulse Ox 98 02/21/25 08:20 O2 Del Method Room Air 02/21/25 08:20 Allergies Allergy/AdvReac Type Severity Reaction Status Date / Time No Known Allergies Allergy Verified 02/21/25 08:09 Home Medications ?Medication ?Instructions ?Recorded ?Confirmed ?Type lisinopril 40 mg tablet 40 mg PO DAILY 02/17/22 02/21/25 History omeprazole 20 mg capsule,delayed 20 mg PO DAILY Indigestion 02/17/22 02/21/25 History release cyclobenzaprine 10 mg tablet 20 mg PO TID PRN Cramps 04/18/22 02/21/25 History hydrochlorothiazide 25 mg tablet 25 mg PO QAM 04/18/22 02/21/25 History metformin 500 mg tablet,extended 2,000 mg PO QAM 04/18/22 02/21/25 History release 24 hr ondansetron HCl 4 mg tablet 4 mg PO Q6-8H PRN Nausea 04/18/22 02/21/25 History amlodipine 2.5 mg tablet 2.5 mg PO DAILY 02/14/25 02/28/25 History aspirin 81 mg tablet,delayed 81 mg PO DAILY 02/14/25 02/21/25 History release (Adult Low Dose Aspirin) multivitamin 1 tablet PO DAILY 02/14/25 02/21/25 History tirzepatide 7.5 mg/0.5 mL 7.5 mg subcut WEEKLY 02/14/25 02/21/25 History subcutaneous pen injector (Mounjaro) acetaminophen 500 mg tablet 1,000 mg PO Q6H PRN pain 02/21/25 02/21/25 History (Acetaminophen Extra Strength) cyanocobalamin (vitamin B-12) 500 500 mcg PO DAILY 02/21/25 02/21/25 History mcg tablet diphenhydramine 25 2 tablet PO HS PRN sleep 02/21/25 02/21/25 History mg-acetaminophen 500 mg tablet (Tylenol PM Extra Strength) simethicone 125 mg capsule (Gas 250 mg PO BID PRN abdominal 02/21/25 02/21/25 History Relief (simethicone)) distention Laboratory Tests 02/28/25 08:11 POC Capillary Glucose 113 H mg/dl (65-105) Patient hx anesthesia problems: none Family hx anesthesia problems: none Results Review: All pre-operative results and documents have been reviewed as part of the pre-operative evaluation. [facility] Past Medical History Medical History History of pancreatitis Pancreatitis (03/2022) Cholelithiasis Hypertension Type 2 diabetes mellitus Chronic narcotic use Osteoarthritis Obesity Benign prostatic hyperplasia with lower urinary tract symptoms Surgical History Surgical History Status post lumbar surgery Status post surgical removal of malignant neoplasm of skin Squamous cell carcinoma. History of transurethral resection of prostate History of lumbar surgery (04/29/22) Previous back surgery Family History Family History Other Malignant neoplasm of prostate Social History Social History Social History: Hamzah is very confident filling out medical forms. In the last 12 months he has not received assistance from an organization or program. Surrogate medical decision maker: Zenobia Lynn, spouse. Code status: Full code. Years smoked: 10 Smoking status: Former smoker Alcohol intake: current Substance use: never Substance use type: does not use Do You Feel Safe in your Home?: Yes Lack of Transportation: No Lack of Food: Never True Current Housing: I Have Housing Concerned About Future Housing: No Difficulty Paying Gas/Electric Bills: No Difficulty Paying for Meds: No Currently Unemployed: No Education: High School Diploma/GED Difficulty w/ Childcare or Family Care: No Living arrangements: with family Additional living arrangements comments: Patient lives with his in [place]. 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 Spiritual care concerns: No Anes - Eval Final PreProcedure Day of Procedure 02/28/25 09:52 Patient weight: morbidly obese Heart: regular rate and rhythm Lungs: clear to auscultation Airway: Mallampati scale class II Neurological: alert and oriented Last oral intake: >/= 8 hours ASA classification: III Emergent: no Anesthetic plan: proceed Anesthesia type and monitoring: general ETT and standard monitoring Results Review: All pre-operative results and documents have been reviewed as part of the pre-operative evaluation. Informed Consent: The patient's anesthetic plan and its attendant risks and benefits were discussed with the patient/family/POA. Questions were solicited and answers provided to the satisfaction of the patient/family/POA.
[2025-02-28] MEDS: ceFAZolin 3 GM/D5W 100 ML 100 ML IVPB (10:18)
[2025-02-28] MEDS: LIDO 1%/EPINEPHRINE 1:100,000 20 ML VIAL 30 ML INFILTRATE (11:01)
--- NOTE | 2025-02-28 13:36 | ECG_ITS ---
Test Date: 2025-02-28 13:52:35 Measurements Intervals [place] Rate: 45 P: 0 IN: 0 QRS: -38 QRSD: 140 T: 26 QT: 511 QTc: 443 Interpretive Statements sinus bradycardia LEFT AXIS DEVIATION [QRS AXIS < -30] INTRAVENTRICULAR CONDUCTION DELAY [130+ ms QRS DURATION] Electronically Signed On 02-28-2025 17:15:45 CDT by Anselmo Haq M.D.
--- NOTE | 2025-02-28 13:36 | W.PM.PROC2 ---
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 He was then turned into the prone position on a To frame. There operation on his back was examined, marked for incision, prepped and draped in routine sterile fashion. Incision was marked over the L1 through 3 spinous processes in the midline. This area was injected with 0.5% lidocaine with [id number] epinephrine. Intravenous antibiotics given prior to incision. Incision was made with a 10 blade scalpel down to the lumbodorsal fascia. A subperiosteal dissection of the muscle soft tissue away from the spinous process and lamina was performed with a subperiosteal elevator and Bovie cautery at L1. A verifying x-rays obtained to verify the level of operation. At L2-L3 the instrumentation was uncovered using Bovie cautery. The L1 spinous process was removed with a Chelsea rongeur. Kerrison punches, curved curettes and Leksell rongeur were used to remove lamina in the midline to the soft contents of the canal were encountered. Midas-Lebron drill was used to resect the pars bilaterally at L1. The inferior articular process and facet of L1 could then be removed bilaterally. These post spinous process or sugar free of soft tissue and morselized for later use as interbody autograft. Kerrison punches and curved curettes were used to define a plane with the dura and removed bone and ligament flush with the pedicle and through the foramina widely decompressing the exiting nerve roots. With the thecal sac retracted and protected the disc space was entered bilaterally using an 11 blade scalpel. Script is a very sizes, curettes severe is configurations, pituitary rongeur and a rasp were used to remove as much cartilaginous endplate and disc material as possible down to bleeding cortical flat surfaces in the opposing bones. The disc space was incised an appropriately-sized interbody devices were chosen and filled with local autograft bone. These were 9 mm devices. The disc space was likewise filled with local autograft bone medially and anteriorly. The interbody devices were then placed to a 2-3 mm countersink in the disc space bilaterally. Pedicle screw instrumentation was then performed at L1 by observing and palpating the pedicle while a hole was made and superior to process above the pedicle using Midas Lebron drill. Pedicle was then cannulated with pedicle probe, checked for continuity with ball probe, tapped with a 5.5 mm tap and a 6.5 x 50 mm screw was placed each L1 pedicle. Lateral connectors were placed on the rods between L2 and L3 and secured in position using the appropriate caps. A 60 mm gaviota was then fit between the lateral connector and the L1 screw head. These were also secured in position using the appropriate caps. All caps were then definitively tightened with a torque and anti torque device. Verifying x-rays obtained to verify good position of the instrumentation which was confirmed. The wound was then copiously irrigated with bacitracin irrigation all bleeding stopped with bipolar and Bovie cautery and Gelfoam thrombin powder. A medium Hemovac drain was left in the subfascial position buried up to the inferior right of the incision. The wound was then closed in layered fashion with 2-0 Vicryl interrupted sutures in the lumbodorsal fascia and Ca's layer. 3-0 Vicryl buried interrupted sutures were placed in the dermis and the skin was closed with a running 4-0 Monocryl subcuticular stitch and dressed with Dermabond. The patient was allowed to wake up in the operating room and was taken to the recovery room in stable condition. There were no immediate complications of this operation. All counts reported correct at the end of the case. Blood loss was 300 cc. The patient was neurologically at his baseline postoperatively. CPT codes: 93702, 30646, 57829, 17980, 02607 Estimated Blood Loss 300 Drains Yes Complications None Condition Stable Disposition PACU [facility] Billing Surgery - Charge Forward: Surgery Billing
--- NOTE | 2025-02-28 13:45 | SUR.PHASEI ---
Addendum entered by Fabienne Chau RN 02/28/25 14:35: 1410- Dr. He called and made aware of change in pts rhythm, EKG result, and cardiac consult. Original Note: 1335- Dr. Bowman called for bradycardia in the 40's. BP stable (105/57). Pt alert and conversing. EKG ordered per anesthesiology. 1345- Dr. Bowman to bedside to assess pt. 1348- EKG at bedside.
--- NOTE | 2025-02-28 16:12 | ADMGEN ---
This patient, Hamzah Lynn, was admitted to [facility] Surg Room 313-01. Patient/family oriented to hospital policies and general routines including ID bracelet, bed and alarms, visiting hours, pain management, procedures, bathroom and other care routines, personal items, smoking policy, room service/diet, and visiting hours. Information on how to activate the Rapid Response Team has been discussed. Patient/Family are encouraged to report perceived risks to care and to ask questions if they do not understand what they are told or what they should do. Report received from [facility] PACU
[2025-02-28] MEDS: HYDROcodone/acetaminophen (*CRX) 10-325 MG TABLET 1 TAB PO ×2 (16:24→20:39)
[2025-02-28] MEDS: CYCLOBENZAPRINE HCL 10 MG TABLET PO (16:25)
[2025-02-28] MEDS: ceFAZolin 2 GM in SODIUM CHLORIDE 0.9% IV 50 ML 100 ML IVPB (17:57)
[2025-02-28] MEDS: HYDROmorphone HCL INJ (*CRX) 1 MG/ML SYR 0.5 MG IV PUSH ×3 (17:59→23:13)
[2025-02-28] MEDS: DOCUSATE SODIUM 100 MG CAPSULE PO (20:38)
[2025-03-01] VITALS: PULSE 62
[2025-03-01] MEDS: ceFAZolin 2 GM in SODIUM CHLORIDE 0.9% IV 50 ML 100 ML IVPB ×2 (01:08→09:50)
[2025-03-01] MEDS: HYDROcodone/acetaminophen (*CRX) 10-325 MG TABLET 1 TAB PO ×3 (01:09→13:55)
[2025-03-01 02:30] VITALS: BP 102/57; PULSE 54; RESP 14; TEMP 36.3; O2SAT 97
[2025-03-01 04:00] VITALS: PULSE 58
[2025-03-01 05:55] VITALS: BP 105/54; PULSE 54; RESP 16; TEMP 36.3; O2SAT 99
[2025-03-01 08:00] VITALS: PULSE 61
[2025-03-01] MEDS: PANTOPRAZOLE 40 MG TABLET PO (09:49)
[2025-03-01] MEDS: DOCUSATE SODIUM 100 MG CAPSULE PO (09:49)
[2025-03-01] MEDS: ASPIRIN 81 MG ENTERIC TABLET PO (09:49)
[2025-03-01] MEDS: CYANOCOBALAMIN 500 MCG TABLET PO (09:50)
[2025-03-01] MEDS: MULTIVITAMINS THERAPEUTIC TAB (*BKC) 1 TABLET PO (09:50)
[2025-03-01] MEDS: CYCLOBENZAPRINE HCL 10 MG TABLET PO (09:50)
[2025-03-01] MEDS: metFORMIN HCL XR 500 MG TAB.SR.24H 2000 MG PO (09:50)
--- NOTE | 2025-03-01 10:53 | PM.CNCAR ---
Assessment and Plan Assessment and plan (1) Bradycardia: Code(s): R00.1 - Bradycardia, unspecified Status: Acute (2) Status post lumbar spinal arthrodesis: Code(s): Z98.1 - Arthrodesis status Status: Acute Plan Diagnosis: Bradycardia-heart rates down to the 40s; asymptomatic; per patient he has chronic bradycardia Sinus arrhythmia, PACs Plan: I reviewed telemetry and the rhythm is sinus with sinus arrhythmia and PACs. There is no atrial fibrillation. He is bradycardic occasionally to the 40s. Recommend avoiding beta-blockers or any other AV aleisha blocking agents. Continue home meds aspirin, amlodipine, hydrochlorothiazide, lisinopril. Check TSH and free T4. Recommend event monitor for 30 days at discharge. Follow-up with cardiology in 1 month with the results. Thank you for allowing us to participate in the care of this patient. Cardiology will sign off. Please call us with any questions. 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 He had L1-2 complete laminectomy bilateral facetectomy, L1-2 complete diskectomy and interbody arthrodesis utilizing titanium interbody devices and local autograft, L1-2 pedicle screw instrumentation with attachment to previous instrumentation below. He was noted to be bradycardic to the 40s. There is a question of new onset A fib and Cardiology was consulted for further recommendations. Patient denies any chest pain, shortness of breath, dizziness, lightheadedness, presyncope, syncope, leg swelling, recent weight gain, orthopnea, PND, palpitations. He states that he may have lost some weight recently. Patient states that he has had bradycardia for a long time with heart rates in the 50s to 60s range at baseline. He remains asymptomatic from this. Workup: EKG: Sinus bradycardia, rate of 45, intraventricular conduction delay with QRS of 140 milliseconds Review of Systems Review of Systems: Complete review of systems could not be performed due to patient factors. [facility] Past Medical History Medical History History of pancreatitis Pancreatitis (03/2022) Cholelithiasis Hypertension Type 2 diabetes mellitus Chronic narcotic use Osteoarthritis Obesity Benign prostatic hyperplasia with lower urinary tract symptoms Surgical History Surgical History Status post lumbar surgery Status post surgical removal of malignant neoplasm of skin Squamous cell carcinoma. History of transurethral resection of prostate History of lumbar surgery (04/29/22) Previous back surgery Family History Family History Other Malignant neoplasm of prostate Social History Social History Social History: Hamzah is very confident filling out medical forms. In the last 12 months he has not received assistance from an organization or program. Surrogate medical decision maker: Zenobia Lynn, spouse. Code status: Full code. Years smoked: 10 Smoking status: Former smoker Tobacco type: cigarettes Second hand tobacco smoke exposure: Yes Smoking end date: 06/01/89 Alcohol intake: former Substance use: never Substance use type: does not use Do You Feel Safe in your Home?: Yes Lack of Transportation: No Lack of Food: Never True Current Housing: I Have Housing Concerned About Future Housing: No Difficulty Paying Gas/Electric Bills: No Difficulty Paying for Meds: No Currently Unemployed: No Education: High School Diploma/GED Difficulty w/ Childcare or Family Care: No Living arrangements: with family Additional living arrangements comments: Patient lives with his in [place]. 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 Spiritual care concerns: No Meds Home Medications and Allergies Home Medications ?Medication ?Instructions ?Recorded ?Confirmed ?Type lisinopril 40 mg tablet 40 mg PO DAILY 02/17/22 02/21/25 History omeprazole 20 mg capsule,delayed 20 mg PO DAILY Indigestion 02/17/22 02/21/25 History release cyclobenzaprine 10 mg tablet 20 mg PO TID PRN Cramps 04/18/22 02/21/25 History hydrochlorothiazide 25 mg tablet 25 mg PO QAM 04/18/22 02/21/25 History metformin 500 mg tablet,extended 2,000 mg PO QAM 04/18/22 02/21/25 History release 24 hr ondansetron HCl 4 mg tablet 4 mg PO Q6-8H PRN Nausea 04/18/22 02/21/25 History amlodipine 2.5 mg tablet 2.5 mg PO DAILY 02/14/25 02/28/25 History aspirin 81 mg tablet,delayed 81 mg PO DAILY 02/14/25 02/21/25 History release (Adult Low Dose Aspirin) multivitamin 1 tablet PO DAILY 02/14/25 02/21/25 History tirzepatide 7.5 mg/0.5 mL 7.5 mg subcut WEEKLY 02/14/25 02/21/25 History subcutaneous pen injector (Mounjaro) acetaminophen 500 mg tablet 1,000 mg PO Q6H PRN pain 02/21/25 02/21/25 History (Acetaminophen Extra Strength) cyanocobalamin (vitamin B-12) 500 500 mcg PO DAILY 02/21/25 02/21/25 History mcg tablet diphenhydramine 25 2 tablet PO HS PRN sleep 02/21/25 02/21/25 History mg-acetaminophen 500 mg tablet (Tylenol PM Extra Strength) simethicone 125 mg capsule (Gas 250 mg PO BID PRN abdominal 02/21/25 02/21/25 History Relief (simethicone)) distention cyclobenzaprine 10 mg tablet 10 mg PO TID PRN Muscle Spasms 10 03/01/25 Rx days #30 tabs hydrocodone 5 mg-acetaminophen 325 1 - 2 tablet PO Q4H PRN pain 7 03/01/25 Rx mg tablet days #84 tabs Allergies Allergy/AdvReac Type Severity Reaction Status Date / Time No Known Allergies Allergy Verified 02/21/25 08:09 Vital Signs Vital Signs - 24 hr 02/28/25 13:07 02/28/25 13:20 02/28/25 13:35 Temperature 36.1 C L Pulse Rate 66 51 L 44 L Respiratory Rate 12 14 14 Blood Pressure 117/65 104/62 105/57 L Pulse Oximetry 98 100 100 Oxygen Delivery Simple Face Mask Simple Face Mask Simple Face Mask Oxygen Flow Rate 8 6 6 02/28/25 13:50 02/28/25 14:05 02/28/25 14:20 Temperature Pulse Rate 46 L 51 L 48 L Respiratory Rate 12 12 14 Blood Pressure 111/59 L 103/61 110/57 L Pulse Oximetry 100 100 100 Oxygen Delivery Room Air Room Air Room Air Oxygen Flow Rate 02/28/25 14:35 02/28/25 14:50 02/28/25 15:05 Temperature Pulse Rate 43 L 47 L 50 L Respiratory Rate 15 12 14 Blood Pressure 105/58 L 107/53 L 104/80 Pulse Oximetry 100 100 100 Oxygen Delivery Room Air Room Air Room Air Oxygen Flow Rate 02/28/25 15:20 02/28/25 15:35 02/28/25 15:44 Temperature 35.9 C L Pulse Rate 47 L 50 L 67 Respiratory Rate 12 14 14 Blood Pressure 98/64 L 100/58 L 108/84 Pulse Oximetry 100 100 100 Oxygen Delivery Room Air Room Air Oxygen Flow Rate 02/28/25 17:14 02/28/25 17:44 02/28/25 18:16 Temperature 36.1 C L 36.3 C L Pulse Rate 51 L 67 52 L Respiratory Rate 14 14 Blood Pressure 117/62 106/71 Pulse Oximetry 100 100 Oxygen Delivery Oxygen Flow Rate 02/28/25 18:44 02/28/25 19:30 02/28/25 19:30 Temperature 36.4 C L Pulse Rate 68 70 Respiratory Rate 14 Blood Pressure 111/67 Pulse Oximetry 100 Oxygen Delivery Room Air Oxygen Flow Rate 02/28/25 22:38 03/01/25 00:00 03/01/25 02:30 Temperature 36.3 C L 36.3 C L Pulse Rate 70 62 54 L Respiratory Rate 14 14 Blood Pressure 125/67 102/57 L Pulse Oximetry 98 97 Oxygen Delivery Oxygen Flow Rate 03/01/25 04:00 03/01/25 05:55 03/01/25 07:56 Temperature 36.3 C L Pulse Rate 58 L 54 L Respiratory Rate 16 Blood Pressure 105/54 L Pulse Oximetry 99 Oxygen Delivery Room Air Oxygen Flow Rate 03/01/25 08:26 Temperature Pulse Rate Respiratory Rate Blood Pressure Pulse Oximetry Oxygen Delivery Room Air Oxygen Flow Rate Exam Narrative: General: Alert oriented x3, no acute distress Neck: Supple, no JVD Chest: Bilaterally clear to auscultation, no rales or rhonchi Cardiac: S1, S2 +, regular rate, regular rhythm, no murmurs or rubs Extremities: No pedal edema, no skin rash Neurologic: Alert and oriented x3, no focal neurological deficits Results Labs and Meds Lab results: Intake and Output 02/28/25 03/01/25 03/01/25 23:59 07:59 15:59 Intake Total 550 1050 1000 Output Total 170 Balance 380 1050 1000 Intake: IV 50 50 ceFAZolin 2 gm In Sodium 50 50 Chloride 0.9% IV 50 ml @ 100 mls/hr IVPB Q8H [facility] Rx#: [id number] Oral 500 1000 1000 Output: Drain 170 Hemovac Back 170
--- NOTE | 2025-03-01 12:01 | WPDNEUROSGPN ---
Progress Note: A&P Assessment and Plan (1) Status post lumbar spinal arthrodesis: Code(s): Z98.1 - Arthrodesis status Status: Acute Plan -Remove crandall catheter today -Remove hemovac this afternoon -Reviewed wound care and activity precautions at bedside -Tentative plan for discharge this afternoon assuming he voids and still remains with good pain control Subjective Date/time seen: 03/01/25 9:01 Interval history: Overall doing better today with improvement in pain level. He denies any pain or paresthesias in the legs. He has already been up to walk. He is hoping to go home today. Review of Systems Review of Systems: All systems reviewed & are unremarkable except as noted in HPI and below Exam Narrative: Incision c/d/i Full strength in lower extremities Sensation intact to light touch Objective Data Vital Signs Vital Signs: Vital Signs - 24 hr 02/28/25 13:07 02/28/25 13:20 02/28/25 13:35 Temperature 97 F L Pulse Rate 66 51 L 44 L Respiratory Rate 12 14 14 Blood Pressure 117/65 104/62 105/57 L Pulse Oximetry 98 100 100 Oxygen Delivery Simple Face Mask Simple Face Mask Simple Face Mask Oxygen Flow Rate 8 6 6 02/28/25 13:50 02/28/25 14:05 02/28/25 14:20 Temperature Pulse Rate 46 L 51 L 48 L Respiratory Rate 12 12 14 Blood Pressure 111/59 L 103/61 110/57 L Pulse Oximetry 100 100 100 Oxygen Delivery Room Air Room Air Room Air Oxygen Flow Rate 02/28/25 14:35 02/28/25 14:50 02/28/25 15:05 Temperature Pulse Rate 43 L 47 L 50 L Respiratory Rate 15 12 14 Blood Pressure 105/58 L 107/53 L 104/80 Pulse Oximetry 100 100 100 Oxygen Delivery Room Air Room Air Room Air Oxygen Flow Rate 02/28/25 15:20 02/28/25 15:35 02/28/25 15:44 Temperature 96.6 F L Pulse Rate 47 L 50 L 67 Respiratory Rate 12 14 14 Blood Pressure 98/64 L 100/58 L 108/84 Pulse Oximetry 100 100 100 Oxygen Delivery Room Air Room Air Oxygen Flow Rate 02/28/25 17:14 02/28/25 17:44 02/28/25 18:16 Temperature 96.9 F L 97.4 F L Pulse Rate 51 L 67 52 L Respiratory Rate 14 14 Blood Pressure 117/62 106/71 Pulse Oximetry 100 100 Oxygen Delivery Oxygen Flow Rate 02/28/25 18:44 02/28/25 19:30 02/28/25 19:30 Temperature 97.5 F L Pulse Rate 68 70 Respiratory Rate 14 Blood Pressure 111/67 Pulse Oximetry 100 Oxygen Delivery Room Air Oxygen Flow Rate 02/28/25 22:38 03/01/25 00:00 03/01/25 02:30 Temperature 97.4 F L 97.3 F L Pulse Rate 70 62 54 L Respiratory Rate 14 14 Blood Pressure 125/67 102/57 L Pulse Oximetry 98 97 Oxygen Delivery Oxygen Flow Rate 03/01/25 04:00 03/01/25 05:55 03/01/25 07:56 Temperature 97.4 F L Pulse Rate 58 L 54 L Respiratory Rate 16 Blood Pressure 105/54 L Pulse Oximetry 99 Oxygen Delivery Room Air Oxygen Flow Rate 03/01/25 08:00 03/01/25 08:00 03/01/25 08:26 Temperature Pulse Rate 61 Respiratory Rate Blood Pressure Pulse Oximetry Oxygen Delivery Room Air Room Air Oxygen Flow Rate Intake/Output Intake/Output: Intake & Output 02/26/25 02/27/25 02/28/25 03/01/25 23:59 23:59 23:59 23:59 Intake Total 850 0 Output Total 675 Balance 175 0 Meds/Results Medications: Active Medications Generic Name Dose Route Start Last Admin Trade Name Freq PRN Reason Stop Dose Admin Acetaminophen 1,000 mg 02/28/25 15:44 Acetaminophen 500 Mg Tablet PO Q6H PRN Pain 1-3 Acetaminophen 1,000 mg 02/28/25 16:09 Acetaminophen 500 Mg Tablet BY MOUTH HS PRN sleep Hydrocodone Bitart/Acetaminophen 1 tab 02/28/25 15:44 Hydrocodone/Acetaminophen (*Crx) 5-325 Mg Tablet PO Q4H PRN Mild Pain (1-3) Hydrocodone Bitart/Acetaminophen 1 tab 02/28/25 15:44 03/01/25 05:44 Hydrocodone/Acetaminophen (*Crx) 10-325 Mg Tablet PO 1 tab Q4H PRN Administration Moderate Pain (4-6) Al Hydrox/Mg Hydrox/Simethicone 20 ml 02/28/25 15:44 Mag Hydrox/Al Hydrox/Simeth 30 Ml Udc PO Q4H PRN Indigestion/Heartburn Amlodipine Besylate 2.5 mg 03/01/25 09:00 03/01/25 09:50 Amlodipine Besylate 2.5 Mg Tablet PO 2.5 mg DAILY IRENE Administration Aspirin 81 mg 03/01/25 09:00 03/01/25 09:49 Aspirin 81 Mg Enteric Tablet PO 81 mg DAILY IRENE Administration Bisacodyl 10 mg 02/28/25 15:44 Bisacodyl 10 Mg Suppository RECTAL DAILY PRN Constipation Cyanocobalamin 500 mcg 03/01/25 09:00 03/01/25 09:50 Cyanocobalamin 500 Mcg Tablet PO 500 mcg DAILY IRENE Administration Cyclobenzaprine HCl 10 mg 02/28/25 15:44 03/01/25 09:50 Cyclobenzaprine Hcl 10 Mg Tablet PO 10 mg TID PRN Administration Muscle Spasms Diphenhydramine HCl 50 mg 02/28/25 16:08 Diphenhydramine Hcl Cap 25 Mg Capsule PO HS PRN sleep Docusate Sodium 100 mg 02/28/25 21:00 03/01/25 09:49 Docusate Sodium 100 Mg Capsule PO 100 mg Q12HR IRENE Administration Hydrochlorothiazide 25 mg 03/01/25 09:00 03/01/25 09:49 Hydrochlorothiazide 25 Mg Tablet PO 25 mg QAM IRENE Administration Hydromorphone HCl 0.5 mg 02/28/25 15:44 02/28/25 23:13 Hydromorphone Hcl Inj (*Crx) 1 Mg/Ml Syr IV PUSH 0.5 mg Q2H PRN Administration Pain Rated 7-10 Cefazolin Sodium 2 gm/ Sodium 50 mls @ 100 mls/hr 02/28/25 18:00 03/01/25 09:50 Chloride IVPB 100 mls/hr Q8H IRENE Administration Lisinopril 40 mg 03/01/25 09:00 03/01/25 09:49 Lisinopril 20 Mg Tablet PO 40 mg DAILY IRENE Administration Metformin HCl 2,000 mg 03/01/25 09:00 03/01/25 09:50 Metformin Hcl Xr 500 Mg Tab.Sr.24h PO 2,000 mg QAM IRENE Administration Miscellaneous Information 0 each 02/28/25 00:01 Tirzepatide Nonform Can Pt Bring From Home Or Hold While Here? XX 03/30/25 00:00 CLARIFY IRENE Multivitamins Therapeutic 1 tablet 03/01/25 09:00 03/01/25 09:50 Multivitamins Therapeutic Tab (*Bkc) PO 1 tablet DAILY IRENE Administration Non-Formulary Medication 7.5 mg 03/07/25 09:00 Tirzepatide [Mounjaro] SUB-Q 04/06/25 08:59 WEEKLY [facility] Ondansetron HCl 4 mg 02/28/25 15:44 Ondansetron Hcl Odt 4 Mg Tablet PO Q6-8H PRN Nausea Ondansetron HCl 4 mg 02/28/25 15:44 Ondansetron Inj 4 Mg/2 Ml Vial IV PUSH Q8H PRN Nausea And Vomiting Pantoprazole Sodium 40 mg 03/01/25 09:00 03/01/25 09:49 Pantoprazole 40 Mg Tablet PO 40 mg QAM [facility] Administration Senna/Docusate Sodium 1 tab 02/28/25 15:44 Senna/Docusate Sodium Tablet PO HS PRN Constipation Simethicone 250 mg 02/28/25 15:44 Simethicone 125 Mg Chew Tab PO BID PRN Abdominal Distention Radiology Results: ITS Impressions Fluoroscopy 02/28/25 13:47 IMPRESSION: Fluoroscopy used during L1-2 posterior lumbar interbody fusion. Labs Labs: Laboratory Results - last 24 hr 02/28/25 02/28/25 02/28/25 13:23 16:19 20:19 POC Capillary Glucose 180 H 123 H 138 H 03/01/25 03/01/25 07:50 11:36 POC Capillary Glucose 123 H 123 H
--- OUTSIDE RECORDS SUMMARY | 2025-03-01 12:34 | XMS_ITS | Clinical Summary ---
Author Organization [facility] Medical Office Building A Address [address] [place] [address] Care Team Providers Care Telemetry Nurse Name Role Phone Dylan Samuel DPM Unavailable [phone] Marques Rowland MD Unavailable [phone] Marky He MD Unavailable [phone] Juju Bautista MD Unavailable [phone] Mg Keenan MD Unavailable [phone] Paul Fulton NP Unavailable [phone] Jose Adamson MD Primary Care Provider Allergies [...] complication, without long-term current use of insulin ([facility]) USE 1 STRIP TO CHECK GLUCOSE ONCE DAILY 100 each 1 11/16/19 25 Active lancets (onetouch ultrasoft) miscIndications :Type 2 diabetes mellitus without complication, without long-term current use of insulin ([facility]) Use to check blood sugar [...] to underlying condition with hyperglycemia, unspecified whether terminal carman insulin use ([facility]) TAKE 4 TABLETS BY MOUTH [...] complication, without long-term current use of insulin ([facility]) Inject 0.5 mL (5 mg total) under the skin once a week 2 mL 2 11/26/19 25 025 Discontinued glipiZIDE XL (GLUCOTROL XL) 5 mg 24 hr tabletIndicatio ns:Diabetes mellitus due to underlying condition with hyperglycemia, without long-term current use of insulin ([facility]) Take 1 tablet by mouth once daily [...] evidence of ascites. Electronically signed by: Ari Bud, M.D. Lab Results Component Value Date ALT 13 10/12/2024 AST 13 10/12/2024 ALKPHOS 59 10/12/2024 BILITOT 0.5 10/12/2024 Assessment & Plan (04/25/2024 12:07 PM TRACTOR TRAILER TRUCK DRIVER): - new diagnosis - found on screening [...] 10/12/2024 Assessment & Plan (04/25/2024 5:22 PM TRACTOR TRAILER TRUCK DRIVER): - new diagnosis - has T2DM and [...] any medication currently - follows with Dr. eH as needed who is his surgeon and [...] - referral placed to pain management at [facility] MRI lumbar spine without contrast 03/2024 (scanned [...] L1-L2 Assessment & Plan (04/25/2024 11:59 AM TRACTOR TRAILER TRUCK DRIVER): - chronic condition, stable - follows with [...] 10/19/2023 Assessment & Plan (04/25/2024 11:46 AM TRACTOR TRAILER TRUCK DRIVER): - chronic condition, stable status - takes [...] - Continue to follow-up with his neurosurgeon/plastic surgeon/spray painter helper as they direct - he used to [...] symptoms. Assessment & Plan (05/10/2023 7:26 PM TRACTOR TRAILER TRUCK DRIVER): Continue to follow-up with his neurosurgeon/plastic surgeon/spray painter helper as they direct Assessment & Plan (03/29/2023 9:09 PM CDT): Follow-up with his neurosurgeon, plastic surgeon, pain management as they direct. Non-alcoholic fatty liver disease 04/27/2022 Assessment & Plan (04/27/2022 8:32 PM TRACTOR TRAILER TRUCK DRIVER): Secondary to diabetes and obesity. Liver function [...] days Assessment & Plan (04/25/2024 11:58 AM TRACTOR TRAILER TRUCK DRIVER): Chronic condition which well controlled, improved Initial [...] surgery - he does not have a tire duster Pes anserinus bursitis of right knee 08/09/2021 [...] hypertension Assessment & Plan (04/25/2024 11:46 AM TRACTOR TRAILER TRUCK DRIVER): Wt Readings from Last 3 Encounters: 04/25/24 [...] hypertension Assessment & Plan (05/10/2023 7:25 PM TRACTOR TRAILER TRUCK DRIVER): Patient is encouraged to lose weight with [...] discussed. Assessment & Plan (06/07/2021 11:07 AM TRACTOR TRAILER TRUCK DRIVER): Patient is encouraged to lose weight with [...] Muscle spasms of both lower extremities 03/03/20 19 Assessment & Plan (03/03/2019 4:08 PM CDT): [...] management Assessment & Plan (04/22/2018 11:02 PM TRACTOR TRAILER TRUCK DRIVER): Vascular referral when needed. Rotator cuff tear [...] concerns Assessment & Plan (04/22/2018 11:02 PM TRACTOR TRAILER TRUCK DRIVER): Continue oxybutynin. Assessment & Plan (06/22/2017 11:22 PM TRACTOR TRAILER TRUCK DRIVER): Continue oxybutynin. Assessment & Plan (05/25/2017 9:16 PM TRACTOR TRAILER TRUCK DRIVER): Well controlled on oxybutynin. Hypertension associated with [...] 10/12/2024 Assessment & Plan (04/25/2024 12:12 PM TRACTOR TRAILER TRUCK DRIVER): Blood Pressure Management BP Readings from Last [...] 03/30/2023 Assessment & Plan (05/10/2023 7:25 PM TRACTOR TRAILER TRUCK DRIVER): Pressure well controlled on amlodipine, hydrochlorothiazide, lisinopril Assessment & Plan (03/29/2023 9:06 PM CDT): Blood pressure well controlled on amlodipine, hydrochlorothiazide, lisinopril Assessment & Plan (09/22/2022 1:59 PM CDT): Controlled with medication - continue treatment plan per PCP Assessment & Plan (08/15/2022 11:47 AM TRACTOR TRAILER TRUCK DRIVER): Blood pressure well controlled on amlodipine, hydrochlorothiazide, lisinopril Assessment & Plan (05/05/2022 1:53 PM TRACTOR TRAILER TRUCK DRIVER): Well controlled on the current regimen. Avoidance [...] recommended. Assessment & Plan (06/20/2021 10:18 AM TRACTOR TRAILER TRUCK DRIVER): Recommend DASH diet, heart-healthy lifestyle, exercise. Discussed the risks of hypertension. Assessment & Plan (06/07/2021 11:06 AM TRACTOR TRAILER TRUCK DRIVER): Add amlodipine 5 mg daily. Continue lisinopril [...] LBP. Assessment & Plan (04/22/2018 11:01 PM TRACTOR TRAILER TRUCK DRIVER): Well controlled on the current regimen. Avoidance of salt, proper body weight, and routine exercise recommended. Assessment & Plan (06/22/2017 11:22 PM TRACTOR TRAILER TRUCK DRIVER): Well controlled on the current regimen. Avoidance of salt, proper body weight, and routine exercise recommended. Assessment & Plan (05/25/2017 9:15 PM TRACTOR TRAILER TRUCK DRIVER): Well controlled on the current regimen. Avoidance of salt, proper body weight, and routine exercise recommended. 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 Assessment & Plan (05/25/2017 9:15 PM TRACTOR TRAILER TRUCK DRIVER): Well controlled on his Flomax and finasteride. [...] stomach. Assessment & Plan (04/25/2024 12:00 PM TRACTOR TRAILER TRUCK DRIVER): - chronic condition, stable status - often [...] stomach. Assessment & Plan (06/07/2021 11:07 AM TRACTOR TRAILER TRUCK DRIVER): Controlled on omeprazole. Assessment & Plan (04/08/2021 [...] modifications Assessment & Plan (04/22/2018 11:01 PM TRACTOR TRAILER TRUCK DRIVER): Continue current PPI and the patient is aware of the long-term risks posed by chronic PPI usage. Magnesium level will be checked periodically. Calcium supplementation recommended. Assessment & Plan (06/22/2017 11:22 PM TRACTOR TRAILER TRUCK DRIVER): Continue current PPI and the patient is aware of the long-term risks posed by chronic PPI usage. Magnesium level will be checked periodically. Calcium supplementation recommended. Assessment & Plan (05/25/2017 9:16 PM TRACTOR TRAILER TRUCK DRIVER): Continue current PPI and the patient is aware of the long-term risks posed by chronic PPI usage. Magnesium level will be checked periodically. Calcium supplementation recommended. Lumbar spinal stenosis 03/16/2017 Overview (03/19/2018): Dr Jaun terrazas prn. Annia/hydrocodone Assessment & Plan (05/05/2022 1:53 PM TRACTOR TRAILER TRUCK DRIVER): Okay to proceed with lumbar fusion. Assessment & Plan (09/29/2018 9:29 PM CDT): Follow-up with his surgeon and spray painter helper as they direct. Would recommend slowly weaning off of gabapentin. Assessment & Plan (08/31/2018 3:37 PM CDT): Pt wishes to proceed forward with upcoming lumbar fusion recommended by spinal surgeon. Further clearance recommendations is listed in detail under preop plan of care Assessment & Plan (04/22/2018 11:02 PM TRACTOR TRAILER TRUCK DRIVER): Follow-up with his spray painter helper as he directs. Assessment & Plan (05/25/2017 9:17 PM TRACTOR TRAILER TRUCK DRIVER): Would recommend using only Tylenol codeine as needed. Refer back to pain management as needed. 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 Assessment & Plan (08/15/2022 11:47 AM TRACTOR TRAILER TRUCK DRIVER): Endocrinology referral. Assessment & Plan (05/05/2022 1:55 PM TRACTOR TRAILER TRUCK DRIVER): Needs follow-up imaging and endocrinology referral. Will plan on this after his lumbar back surgery completed. Resolved Problems Problem Noted Date Diagnosed Date Resolved Date Type 2 diabetes mellitus 04/20/2023 Medicare annual wellness visit, subsequent 05/05/2022 10/19/2023 Assessment & Plan (05/10/2023 7:25 PM TRACTOR TRAILER TRUCK DRIVER): We discussed a comprehensive list of medical [...] needed. Assessment & Plan (05/05/2022 1:56 PM TRACTOR TRAILER TRUCK DRIVER): We discussed a comprehensive list of medical [...] 10/19/2023 Assessment & Plan (04/27/2022 8:31 PM TRACTOR TRAILER TRUCK DRIVER): Asymptomatic now, but he will need elective cholecystectomy once he recover from his back surgery which is scheduled 04/29/2022. Leukocytosis 03/20/2022 10/19/2023 Acute pancreatitis 03/19/2022 Assessment & Plan (05/05/2022 1:55 PM TRACTOR TRAILER TRUCK DRIVER): Likely due to cholelithiasis. Follow-up with GI as they direct. Will need eventual surgical referral for cholecystectomy Assessment & Plan (04/27/2022 8:29 PM TRACTOR TRAILER TRUCK DRIVER): Symptoms resolved. Differential was either due to [...] (09/25/2020): Added automatically from request for surgery [id number] Biceps tendinitis of right upper extremity 06/15/2020 [...] 10/19/2023 Assessment & Plan (04/22/2018 11:02 PM TRACTOR TRAILER TRUCK DRIVER): Trial of terbinafine and call back if no improvement. Check hepatic function panel in 30 in 60 days. Chronic venous hypertension (idiopathic) without complications of right lower extremity 07/27/2017 10/19/2023 Edema 03/16/2017 10/19/2023 Assessment & Plan (05/25/2017 9:22 PM TRACTOR TRAILER TRUCK DRIVER): Hopefully stopping his Actos will decrease his [...] needed. Assessment & Plan (04/22/2018 11:03 PM TRACTOR TRAILER TRUCK DRIVER): Flu shot each March. Tetanus booster every 10 years. Shingrix recommended. Colonoscopy due April 2027. Six months with lab sooner if needed. Assessment & Plan (05/25/2017 9:16 PM TRACTOR TRAILER TRUCK DRIVER): Flu shot each March. Tetanus booster every [...] pancreatitis. Assessment & Plan (05/10/2023 7:25 PM TRACTOR TRAILER TRUCK DRIVER): A1c, LDL, and blood pressure currently well controlled on current regimen. Check a yearly diabetic eye exam and blood sugars daily. Monofilament testing is intact. Assessment & Plan (03/29/2023 9:06 PM CDT): A1c, LDL, and blood pressure currently well controlled on current regimen. Check a yearly diabetic eye exam and blood sugars daily. Monofilament testing is intact. Assessment & Plan (08/15/2022 11:47 AM TRACTOR TRAILER TRUCK DRIVER): A1c, LDL, and blood pressure currently well controlled on current regimen. Check a yearly diabetic eye exam and blood sugars daily. Monofilament testing is intact. Assessment & Plan (05/05/2022 1:54 PM TRACTOR TRAILER TRUCK DRIVER): A1c under goal. Avoid Ozempic in the [...] control. Assessment & Plan (04/22/2018 11:01 PM TRACTOR TRAILER TRUCK DRIVER): A1c, LDL, and blood pressure currently well controlled on current regimen. Check a yearly diabetic eye exam and blood sugars daily. Take a daily aspirin. Monofilament testing is abnormal. Assessment & Plan (06/22/2017 11:22 PM TRACTOR TRAILER TRUCK DRIVER): A1c, LDL, and blood pressure currently well [...] intact. Assessment & Plan (05/25/2017 9:15 PM TRACTOR TRAILER TRUCK DRIVER): With his lower extremity edema and multiple [...] Encounters Date Type Department Care Team Description 03/01/2025 Telephone [facility] Cardiology [address] [place] [address] [place] [phone] Aury Helm NP 02/01/2025 10:45 AM CDT Office Visit [facility] Primary Care at [address] [phone] Jose Adamson MD Hypertension associated with type 2 diabetes mellitus (HCC) (Primary Dx); Morbid obesity with BMI of 40.0-44.9, adult (HCC); Gastroesophageal reflux disease without esophagitis; Type 2 diabetes mellitus without complication, without long-term current use of insulin (HCC); Hepatitis C virus infection cured after antiviral drug therapy; History of fusion of lumbar spine 01/29/2025 Results Follow-Up [facility] at [address] [phone] Jose Adamson MD CBC without differential, Thyroid Function Braxton, Hemoglobin A1c, Additional followed-up results: 3 01/27/2025 Results Follow-Up [facility] at [address] [place] [phone] Dee Padilla PA Hepatitis C (HCV) RNA PCR, quantitative Blood 01/26/2025 1:15 PM CDT Lab [address] [address] Type 2 diabetes mellitus without complication, without long-term current use of insulin (HCC); Hypertension associated with type 2 diabetes mellitus (HCC); Morbid obesity with BMI of 40.0-44.9, adult (HCC) 01/21/2025 11:45 AM CDT Lab [address] [address] Chronic hepatitis C without hepatic coma (HCC) 01/19/2025 Telephone [facility] at [address] [phone] Jose Adamson MD Medical Question/Miscellane [...] Hypertension Urinary incontinence Erectile dysfunction Diabetes mellitus Back pain GERD (gastroesophageal reflux disease) Type 2 diabetes mellitus 04/20/2023 Family History Medical History Relation Name Comments Cancer Father Alin Lynn history of pros allen cancer COPD Mother Becca Colon Diverticulitis Mother Becca Colon Diverticulosis Mother Becca Colon Relation Name Status Comments Father Alin Biddle Alive Mother Becca Colon Alive Social History [...] on file Legal Sex Male 12:35 AM TRACTOR TRAILER TRUCK DRIVER Gender Identity Male 04/03/2021 10:40 PM CDT Sexual Orientation Straight 05/29/2020 10 :35 AM TRACTOR TRAILER TRUCK DRIVER 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 Not on file Not on fi Obstetrics History Last Filed Vital Signs Vital Sign Reading Time Taken Comments Blood Pressure 126/74 02/01/2025 10:37 AM CDT Pulse 58 02/01/2025 10:37 AM CDT Temperature 36.7 C (98 F) 02/01/2025 10:37 AM CDT Respiratory Rate 24 06/02/2024 11:2 4 AM TRACTOR TRAILER TRUCK DRIVER Oxygen Saturation 97% 02/01/2025 10: 37 AM CDT Inhaled Oxygen Concentration - - Weight 131.2 kg (289 lb 3.2 oz) 025 10:37 AM CDT Height 182.9 cm (6') 02/01/2025 10:37 AM CDT Body Mass Index 39.22 02/01/2025 10:37 AM CDT Plan of Treatment Health Maintenance Due Date Last Done Comments Covid-19 Vaccine (2024-2 6 season) 2025 04/08/2023, 04/17/2022, 11/08/2021, Additional [...] history exists Medical Devices Implanted Type Area Plate Furnace Operator Device Identifier Shelf Expiration Date Model / Serial / Lot [employer] Hem-O-Meliza Ligate Nonabsorbable Cartridge Medium Large Latex Free [id number] - [id number] Implanted:Qty: 1 on 07/28/2022 by Norris Dyson MD at [facility] N/A: Abdomen [employer] 05/06/2023 [id number] / [id number] Procedures Procedure Name Priority Date/Time Associated [...] to underlying condition with hyperglycemia, unspecified whether terminal carman insulin use (HCC) PSA SCREEN Routine 10/12/2024 [...] BLOOD ORDERABLES Fi nal Result [facility] ([facility]) 1 [facility] [place] [address] * Thyroid Function Braxton (01/26/2025 1:20 PM CDT) Pathologist [facility] TSH 1.13 0.30 - 4.20 mcIUnit/mL [facility] ([facility]) Blood 01/26/2025 1:20 PM CDT 01/26/2025 1:42 PM CDT Jose Adamson MD LAB BLOOD ORDERABLES Fi nal Result Performing Organization Address City/[facility] Co de Phone Number [facility] ([place]) 1 [facility] [place] [address] * (ABNORMAL) CBC without differential (01/26/2025 1:20 PM CDT) WBC 11.16(H) 3.80 - 9.90 K/cumm Hgb 15.5 13.0 - 17.5 g/dL [facility] ([facility] Hct 46.9 38.9 - 50.3 % [facility] ([facility]) Plt 263 150 - 400 [...] RDW SD 46.0 35.7 - 48.1 fL [facility] ([place]) NRBC abs 0.00 0.00 - 0.01 K/cumm [facility] ([facility]) Blood 01/26/2025 1:20 PM CDT 01/26/2025 1:42 PM CDT Jose Adamson MD LAB BLOOD ORDERABLES nal Result Performing Organization Address [facility] de Phone Number [facility] ([facility]) [address] [place] [address] [place] [address] * (ABNORMAL) Hemoglobin A1c (01/26/2025 1:20 PM CDT) Hgb A1C 5.9(H) 4.0 - 5.6 % [facility] ([facility]) Estimated Average Glucose 123 mg/dL [facility] ([facility]) Comment: The ADA recommends reporting an estimated Average Glucose (eAG) with all Hemoglobin A1c results using the equation derived from a study of 507 normal and diabetic adults. Minority populations were underrepresented and children were not included. (Diabetes Care 31:0476-9526, 2008). The eAG is not equivalent to a fasting glucose. Testing performed by: [facility], [facility], [place], [address] Blood 01/26/2025 1:20 PM CDT 01/26/2025 1:42 PM CDT Jose Adamson MD LAB BLOOD ORDERABLES Fi nal Result Performing Organization Address [facility] Co de Phone Number [facility] ([facility]) 1 [facility] Department [place] [address] * (ABNORMAL) Lipid panel (01/26/2025 1:20 PM CDT) Cholesterol 148 30 - 199 mg/dL [facility] ([facility]) Comment: Interpretive Data Ages < or = [...] NCEP Expert Panel. Circulation 2004;110:227 3. Venkatesh M et al. CLIVE Cardiol. 2020 October 06;5(5):540-548. doi: 10.1001/jamacardio.2020.0013 Current Interpretive Data was last revised on 2024. Testing performed by: [place], [address] Non-HDL Cholesterol 112 mg/dL [facility] ([facility]) Comment: Interpretive Data Ages < or = [...] last revised on 2018. Testing performed by: [place], [address] Chol/HDL ratio 4 [facility] ([facility]) Comment:Testing performed by : [place], [address] Blood 01/26/2025 1:20 PM CDT 01/26/2025 1:42 PM CDT Narrative [facility] ([facility]) - 01/26/2025 2:24 PM CDT Has the patient been fasting for 8 hours or more?->No us Jose Adamson MD LAB BLOOD ORDERABLES Fi nal Result [facility] ([place]) 1 [facility] Department [place] [address] * Comprehensive metabolic panel (01/26/2025 1:20 PM CDT) [facility] Signature Sodium 139 135 - 145 mmol/L [facility] [...] MD LAB BLOOD ORDERABLES Fi nal Result [facility] ([facility]) 1 [facility] [place] [address] * Hepatitis C (HCV) RNA PCR, quantitative Blood (01/21/2025 11:49 AM CDT) Pathologist [facility] HCV RNA result Not Detected [facility] Comment: The quantifiable range of this assay is 15 IU/mL to 100,000,000 IU/mL (1.18 log IU/mL to 8.00 log IU/mL). Testing was performed by the [facility] 6800 HCV Test ([employer] Testing performed at [facility] Current Interpretive Data was last revised on 2021 Testing performed by: [facility], [address] [place]., [address] Blood 01/21/2025 11:4 9 AM CDT 01/21/2025 6:04 PM CDT Paul Fulton NP LAB MICROBIOLOGY - GENERAL ORDERABLES Final Result Performing Organization Address City/[facility]/ZIP Co de Phone Number [facility] ([facility]) 1 [facility] [address] [facility] * PSA screen (10/12/2024 12:49 PM CDT) Pathologist [facility] PSA-Total 0.12 <=5.40 ng/mL Comment: Interpretive Data [...] LAB BLOOD ORDERABLES Fi nal Result [facility] ([facility]) 1 [facility] [address] * Albumin Creatinine Ratio, Urine (10/12/2024 12:49 PM CDT) Albumin Ur <12.0 mg/L Comment: Interpretive Data No reference range established. Current interpretive data was last revised 2018. Testing performed by: [facility], [address] [place] [address]., [address] Creatinine Ur 126.3 mg/dL [facility] ([place]) Comment: Interpretive Data No reference range established. Current interpretive data was last revised 2018. Testing performed by: [facility], [address] [place] [address]., [address] Albumin Creatinine Ratio, Ur <10 1 - 29 mg/g [facility] ([facility]) Comment:Testing performed by : [facility], [address] [place] [address]., [address] Urine 10/12/2024 12:4 9 PM CDT 10/12/2024 7:06 PM CDT Jose Adamson MD LAB URINE ORDERABLES Fi nal Result [facility] ([place]) 1 [facility] [place] [address] * Diabetic Foot Exam (09/30/2024) Historical Provider HEALTH MAINTENANCE Final Result * Diabetic Eye Exam (02/19/2023) Generic External Data Provider [facility] MAINTENANC E Final Result * CT abdomen [...] REPORT (04/13/2017) Anatomical Region Laterality Modality Other us Provider Scanning GI PROCEDURE ORDERABLES Final Result from Last 3 Months or Most Recently Relevant to Health Maintenance Insurance [employer] DEPT OF LABOR - OWCP Advance Directives For more information, please contact: [phone] * Full Code (Latest Code Status on File) Date Activated Date Inactivated Comments 03/19/2022 7:06 PM 03/25/2022 3:32 PM * Full Code Date Activated Date Inactivated Comments 11/04/2020 3:24 PM 11/08/2020 6:44 PM * Full Code Date Activated Date Inactivated Comments 11/04/2020 3:24 PM 11/04/2020 3:24 PM Care Teams Telemetry Nurse Relationship Specialty Start Date End Date Jose Adamson MD [address] [address] PCP - General Family Medicine 11/15/24 Dylan Samuel DPM [address] [place] [address] Consulting Physician Orthotics 09/20/21 Marques Rowland MD [address] [place] [address] Consulting Physician Gastroenterology 03/25/22 [place] [address] [place] [address] Consulting Physician Neurosurgery 07/18/22 Juju Bautista MD [address] [facility] [place] [place] [address] Surgeon Anesthesiology 10/19/23 Mg Keenan MD [facility] S ALLI FORBES [facility] [phone] [place] [address] Consulting Physician Plastic Surgery 10/19/23 Paul Fulton NP [address] [place] [address] [place] [address] Nurse Practitioner Gastroenterology 10/25/24
--- OUTSIDE RECORDS SUMMARY | 2025-03-01 12:34 | XMS_ITS | Encounter Summary ---
Author Organization [facility] Healthcare Address [address] [place] [address] Care Team Providers Care Exterior Door Installer Name Role Phone Dylan Samuel DPM Unavailable [phone] Marques Rowland MD Unavailable [phone] Marky He MD Unavailable [phone] Juju Bautista MD Unavailable [phone] Mg Keenan MD Unavailable +- [phone] Paul Fulton NP Unavailable +[phone] Jose Adamson MD Primary Care Provider Encounter Details Date Type Department Care Team (Late st Contact Info) Description 01/29/2025 Results Follow-Up 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 Not on file Not [...] on filedocumented in this encounter Care Teams Exterior Door Installer Relationship Specialty Start Date End Date Jose Adamson MD [address] [facility] [address] [place] [address] PCP - General Family Medicine 11/15/24 Dylan Samuel DPM [address] [place] [address] Consulting Physician Orthotics 09/20/21 Marques Rowland MD [address] [place] [address] Consulting Physician Gastroenterology 03/25/22 [place] [address] [place] [address] [place] [address] Consulting Physician Neurosurgery 07/18/22 Juju Bautista MD [address] [place] [address] Surgeon Anesthesiology 10/19/23 Mg Keenan MD [address] [facility] [phone] [place] [address] Consulting Physician Plastic Surgery 10/19/23 Paul Fulton NP [address] [facility] [place] [address] Nurse Practitioner Gastroenterology 10/25/24 documented as of this encounter
--- OUTSIDE RECORDS SUMMARY | 2025-03-01 12:34 | XMS_ITS | Encounter Summary ---
Author Organization [facility] Medical Group Address [address] [facility] [address] [place] [address] Care Team Providers Care Crab Meat Processor Name Role Phone Jf Wyatt Primary Care Provider UnavailJf Trivedi Primary Care Provider UnavailNicola Hill MD Primary Care Provider [phone] Leonel Erickson MD Unavailable [phone] Dylan Samuel DPM Unavailable [phone] Marques Rowland MD Unavailable [phone] Marky He MD Unavailable [phone] Jose Adamson MD Primary Care Provider Juju Bautista MD Unavailable [phone] Mg Keenan MD Unavailable + [phone] Paul Fulton NP Unavailable +[phone] Jose Adamson MD Primary Care Provider Reason for Referral * (Routine) - Closed Specialty Diagnoses / Procedures Referred By Gonzalez harmon Referred To Contact Procedures Cystourethroscopy - [facility] Health Information Management [address] [place] [address] Phone: tel: fax: [facility] Medical Group Referral ID Status Reason Start Date Expiration Date Visits Re quested Visits Authorized [id number] Closed 10/22/2018 05/02/2020 1 1 IAL ARTS INSTRUCTOR Encounter Details Date Type Department Care Team (Late st Contact Info) Description 06/22/2015 Orders Only [facility] Health Information Management [address] [place] [address] Nicola Patel MD [address] [facility] [address], [place] [address] Social History Tobacco Use Types Packs/Day Years Used Date Smoking Tobacco: Never Alcohol Use Standard Drinks/Week Comments Yes 0 (1 standard drink = 0.6 oz pur e alcohol) Sex and Gender Information Value Date Recorded Sex Assigned at Not on file Legal Sex Male 12:35 AM MARTIAL ARTS INSTRUCTOR Gender Identity Male 04/03/2021 10:40 PM CDT Sexual Orientation Straight 05/29/2020 10 :35 AM MARTIAL ARTS INSTRUCTOR documented as of this encounter Plan of Treatment Not on file documented as of this encounter Procedures Procedure Name Priority Date/Time Associated Diagnosis Comments CYSTOURETHROSCOPY Routine 06/22/2015 documented in this encounter Results * Cystourethroscopy - (06/22/2015) Historical Provider MD JUAREZ PROCEDURE ORDERABLES F inal Result documented in this encounter Visit Diagnoses Not on filedocumented in this encounter Care Teams Crab Meat Processor Relationship Specialty Start Date End Date Jf Wyatt PCP - General 09/05/16 03/15/17 Jf Wyatt PCP - General 11/17/14 09/04/16 Nicola Patel MD PCP - General Internal Medicine 03/16/17 10/18/23 Jose Adamson MD [address] [place] [address] PCP - General Family Medicine 10/19/23 11/14/24 Jose Adamson MD [address] [place] [address] PCP - General Family Medicine 11/15/24 Leonel Erickson MD Consulting Physician Urology 11/08/20 10/18/23 Dylan Samuel DPM [address] [place] [address] Consulting Physician Orthotics 09/20/21 Marques Rowland MD [address] [place] [address] Consulting Physician Gastroenterology 03/25/22 [place] [address] [place] [address] Consulting Physician Neurosurgery 07/18/22 Juju Bautista MD [address] [place] [address] Surgeon Anesthesiology 10/19/23 Mg Keenan MD [address] [facility] [phone] [place] [address] Consulting Physician Plastic Surgery 10/19/23 Paul Fulton NP [address] [place] [address] [place] [address] Nurse Practitioner Gastroenterology 10/25/24 documented as of this encounter
--- OUTSIDE RECORDS SUMMARY | 2025-03-01 12:34 | XMS_ITS | Encounter Summary ---
Author Organization [facility] Address [address] [place] [address] Phone Care Team Providers Care Precision Assembler Bench Name Role Phone Nicola Patel MD Primary Care Provider [phone] Leonel Erickson MD Unavailable [phone] Dylan Samuel DPM Unavailable [phone] Marques Rowland MD Unavailable [phone] Marky He MD Unavailable [phone] Jose Adamson MD Primary Care Provider Juju Bautista MD Unavailable [phone] Mg Keenan MD Unavailable [phone]- [phone] Paul Fulton NP Unavailable +[phone] Jose Adamson MD Primary Care Provider Encounter Details Date Type Department Care Team (Late st Contact Info) Description 10/19/2020 Telephone [facility] Urology 2 [facility] [address] [place] [address] Keli Noble, LILIA Social History [...] on file Legal Sex Male 12:35 AM IT SUPPORT CONSULTANT Gender Identity Male 04/03/2021 10:40 PM CDT Sexual Orientation Straight 05/29/2020 10 :35 AM IT SUPPORT CONSULTANT 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 Not on file Not on fi le documented as of this encounter Plan of Treatment Not on file documented as of this encounter Visit Diagnoses Not on filedocumented in this encounter Care Teams Precision Assembler Bench Relationship Specialty Start Date End Date Nicola Patel MD PCP - General Internal Medicine 03/16/17 10/18/23 Jose Adamson MD [address] [place] [address] PCP - General Family Medicine 10/19/23 11/14/24 Jose Adamson MD [address] [place] [address] PCP - General Family Medicine 11/15/24 Leonel Erickson MD Consulting Physician Urology 11/08/20 10/18/23 Dylan Samuel DPM [address] [place] [address] Consulting Physician Orthotics 09/20/21 Marques Rowland MD [address] [place] [address] Consulting Physician Gastroenterology 03/25/22 Marky He MD [address] [place] [address] Consulting Physician Neurosurgery 07/18/22 Juju Bautista MD [address] [facility] [place] [address] Surgeon Anesthesiology 10/19/23 Mg Keenan MD [address] [facility] [phone] [place] [address] Consulting Physician Plastic Surgery 10/19/23 Paul Fulton NP [address] [facility] [place] [address] Nurse Practitioner Gastroenterology 10/25/24 documented as of this encounter
--- OUTSIDE RECORDS SUMMARY | 2025-03-01 12:35 | XMS_ITS | Clinical Summary ---
Author Organization [facility] Address [address] [place] [address] Phone Care Team Providers Care Granite Installer Name Role Phone Nicola Patel MD Primary Care Provider [phone] Allergies No known active allergies Medications tamsulosin [...] Comments Blood Pressure 136/84 08/12/2020 1:31 PM CARPENTER [employer]IP Pulse 54 08/12/2020 1:31 PM [employer]ENTER [employer] Temperature 36.6 C (97.8 F) 08/12/2020 1:31 PM [employer]ENTER [employer] Respiratory Rate 18 08/12/2020 1:31 PM [employer]ENTER [employer] Oxygen Saturation 96% 08/12/2020 1:31 PM [employer]PENTER [employer] Inhaled Oxygen Concentration - - Weight 141.5 kg (312 lb) 08/12/2020 1:31 PM [employer]ENTER [employer] Height - - Body Mass Index - [...] to complete this topic Insurance Care Teams Granite Installer Relationship Specialty Start Date End Date Nicola Patel MD PCP - General Internal Medicine 08/12/20
--- OUTSIDE RECORDS SUMMARY | 2025-03-01 12:35 | XMS_ITS | Encounter Summary ---
Author Organization [facility] Healthcare Address [address] [place] [address] Care Team Providers Care Rubber And Pounder Name Role Phone Dylan Samuel DPM Unavailable [phone] Marques Rowland MD Unavailable [phone] Marky He MD Unavailable [phone] Juju Bautista MD Unavailable [phone] Mg Keenan MD Unavailable [phone]- [phone] Paul Fulton NP Unavailable + [phone] Jose Adamson MD Primary Care Provider Encounter Details Date Type Department Care Team (Late st Contact Info) Description 03/01/2025 Telephone [facility] Medical Group Cardiology [address] [facility] [address] [place] [address] Aury Helm, PERSONAL SERVICE WORKERS [address] [address] Social History Tobacco Use Types Packs/Day Years [...] on file Legal Sex Male 12:35 AM SKIN TANNER Gender Identity Male 04/03/2021 10:40 PM CDT Sexual Orientation Straight 05/29/2020 10 :35 AM SKIN TANNER 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 Please arrange for him to have a follow up after monitor completed. Daniel Maddox IP documented in this encounter Plan of Treatment Not on file documented as of this encounter Visit Diagnoses Not on filedocumented in this encounter Care Teams Rubber And Pounder Relationship Specialty Start Date End Date Jose Adamson MD [address] [facility] [address] [place] [address] PCP - General Family Medicine 11/15/24 Dylan Samuel DPM [address] [place] [address] Consulting Physician Orthotics 09/20/21 Marques Rowland MD [address] [place] [address] Consulting Physician Gastroenterology 03/25/22 [place] [address] [place] [address] [place] [address] Consulting Physician Neurosurgery 07/18/22 Juju Bautista MD [address] [place] [address] Surgeon Anesthesiology 10/19/23 Mg Keenan MD [address] [facility] [phone] [place] [address] Consulting Physician Plastic Surgery 10/19/23 Paul Fulton NP [address] [facility] [place] [address] Nurse Practitioner Gastroenterology 10/25/24 documented as of this encounter
--- OUTSIDE RECORDS SUMMARY | 2025-03-01 12:35 | XMS_ITS | Encounter Summary ---
Author Organization [facility] Address [address] [place] [address] Care Team Providers Care Avionics Test Technician Name Role Phone Dylan Samuel DPM Unavailable [phone] Marques Rowland MD Unavailable [phone] Marky He MD Unavailable [phone] Jose Adamson MD Primary Care Provider Juju Bautista MD Unavailable [phone] Mg Keenan MD Unavailable [phone] Paul Fulton NP Unavailable [phone] Jose Adamson MD Primary Care Provider Encounter Details Date Type Department Care Team (Late st Contact Info) Description 03/22/2024 Orders Only [facility] Health Information Management [address] [place] [address] Scanning, Provider Social History Tobacco Use Types [...] on file Legal Sex Male 12:35 AM MORTGAGE LOAN SPECIALIST Gender Identity Male 04/03/2021 10:40 PM CDT Sexual Orientation Straight 05/29/2020 10 :35 AM MORTGAGE LOAN SPECIALIST 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 [...] on filedocumented in this encounter Care Teams Avionics Test Technician Relationship Specialty Start Date End Date Jose Adamson MD [address] [place] [address] PCP - General Family Medicine 10/19/23 11/14/24 Jose Adamson MD [facility] [facility] [address] [place] [address] PCP - General Family Medicine 11/15/24 Dylan Samuel DPM [address] [place] [address] Consulting Physician Orthotics 09/20/21 Marques Rowland MD [address] [place] [address] Consulting Physician Gastroenterology 03/25/22 [place] [address] [place] [address] [place] [address] Consulting Physician Neurosurgery 07/18/22 Juju Bautista MD [address] [place] [address] Surgeon Anesthesiology 10/19/23 Mg Keenan MD [address] [facility] [facility] [phone] [place] [address] Consulting Physician Plastic Surgery 10/19/23 Paul Fulton NP [address] [facility] [place] [address] Nurse Practitioner Gastroenterology 10/25/24 documented as of this encounter
--- OUTSIDE RECORDS SUMMARY | 2025-03-01 12:35 | XMS_ITS | Encounter Summary ---
Author Organization [facility] Healthcare Address [address] [place] [address] Care Team Providers Care Machinist Helper Marine Name Role Phone Dylan Samuel DPM Unavailable [phone] Marques Rowland MD Unavailable [phone] Marky He MD Unavailable [phone] Juju Bautista MD Unavailable [phone] Mg Keenan MD Unavailable +- [phone] Paul Fulton NP Unavailable +[phone] Jose Adamson MD Primary Care Provider Encounter Details Date Type Department Care Team (Latest Contact Info) Description 01/27/2025 Results Follow-Up [facility] Medical Group Gastroenterology at [address] [place] [address] Dee Padilla PA [address] [place] [address] [address] [place] [address] Hepatitis C (HCV) RNA PCR, quantitative Blood [...] on file Legal Sex Male 12:35 AM PRACTICAL NURSE Gender Identity Male 04/03/2021 10:40 PM CDT Sexual Orientation Straight 05/29/2020 10 :35 AM PRACTICAL NURSE 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 [...] on filedocumented in this encounter Care Teams Machinist Helper Marine Relationship Specialty [place] [address] [place] [address] [address] [place] [address] PCP - General Family Medicine 11/15/24 Dylan Samuel DPM [address] [place] [address] Consulting Physician Orthotics 09/20/21 Marques Rowland MD [address] [place] [address] Consulting Physician Gastroenterology 03/25/22 Maryk He MD [address] [place] [address] Consulting Physician Neurosurgery 07/18/22 Juju Bautista MD [address] [facility] [address] Surgeon Anesthesiology 10/19/23 Mg Keenan MD [address] [facility] [phone] [place] [address] Consulting Physician Plastic Surgery 10/19/23 Paul Fulton NP [address] [place] [address] [place] [address] Nurse Practitioner Gastroenterology 10/25/24 documented as of this encounter
[2025-03-01 14:22] LABS: Free T4 Free Thyroxine 1.56 ng/dL (0.78-2.19)
[2025-03-01 14:24] LABS: Thyroid Stimulating Hormone 0.314 uIU/mL (0.465-4.680)
--- NOTE | 2025-03-02 16:31 | P.DS_ITS ---
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 Lynn is a 69-year-old male on whom Dr. He performed an extension of a previous lumbar fusion to the L1-2 level. Please see the operative note for more details. He was transferred to the floor after surgery. His pain was reasonably controlled on postoperative day 1 with oral medications. His Felix catheter was removed, and he was able to void without difficulty. He was tolerating oral intake. He worked with Physical therapy who cleared him for discharge home. His Hemovac drain was removed on postoperative day 1. He was discharged home on postoperative day 1. Time Spent with Patient Time attestation: Total time spent providing and/or coordinating discharge services: Discharge Plan Discharge Consulting providers: Elen Maddox; Anselmo Haq; Ari Bowman; Fab Suarez Discharging Clinician: Inessa Lainez Patient Disposition: Home Activity: other - see discharge instructions Diet: as tolerated Discharge Instructions: 30 day event monitor to be placed day of discharge Patient Instructions: Antibiotic Form Patient Language: Kinyarwanda Stand Alone Forms: General Discharge Information Follow-up/Referrals: Yael Machuca APN-C [Advanced Practice Nurse, Cardiology] Referral Note: follow up in 30 days for assessment of 30 day event monitor, call office with any problems Marky eH MD [Physician, Neurosurgery] Discharge Medications: New cyclobenzaprine 10 mg Tablet 10 mg PO TID PRN (Reason: Muscle Spasms) 10 Days Qty: 30 0RF sennosides-docusate sodium [Senokot-S] 8.6-50 mg Tablet 1 tab PO BID 7 Days Qty: 14 0RF Continued lisinopril 40 mg tablet 40 mg PO DAILY Rx Instructions: TAKES IN AM omeprazole 20 mg capsule,delayed release(DR/EC) 20 mg PO DAILY multivitamin Tablet 1 tablet PO DAILY amlodipine 2.5 mg tablet 2.5 mg PO DAILY Patient Comments: KIA Lopez 7.5 mg/0.5 mL pen injector 7.5 mg subcut WEEKLY Patient Comments: SUNDAYS hydrochlorothiazide 25 mg tablet 25 mg PO QAM ondansetron HCl 4 mg tablet 4 mg PO Q6-8H PRN (Reason: Nausea) metformin 500 mg tablet extended release 24 hr 2,000 mg PO QAM cyanocobalamin (vitamin B-12) 500 mcg tablet 500 mcg PO DAILY simethicone [Gas Relief (simethicone)] 125 mg capsule 250 mg PO BID PRN (Reason: abdominal distention) Rx Instructions: administer after meals acetaminophen [Acetaminophen Extra Strength] 500 mg tablet 1,000 mg PO Q6H PRN (Reason: pain) diphenhydramine-acetaminophen [Tylenol PM Extra Strength] 25-500 mg tablet 2 tablet PO HS PRN (Reason: sleep) Held aspirin [Adult Low Dose Aspirin] 81 mg tablet,delayed release (DR/EC) 81 mg PO DAILY Hold Instructions: Resume on 03/07/25. Patient Comments: Q HS cyclobenzaprine 10 mg tablet 20 mg PO TID PRN (Reason: Cramps) Hold Instructions: Resume on 03/07/25. No Action hydrocodone-acetaminophen 5-325 mg tablet 1 - 2 tablet PO Q6H PRN (Reason: pain) Qty: 56 0RF Other Ambulatory Orders: [place] cardiac event monitor (Routine) Timeframe: 1 Month Location: Determined by Patient Ordered By: Aury Helm Date of admission: 02/28/25 15:44 Primary Care Provider: Juan Diego,Jose Marr Admitting Provider: Marky He Attending physician on admission: Inessa Lainez Condition: Stable
== END 2025-03-01 14:15 | disposition home or self-care (01) | DRG 451 ==
LOC: ANH3MEDSUR 03-01 12:05
PROVIDERS: Internal Medicine Interventional Cardiology; Admitting Provider Neurological Surgery; PCP Family Medicine; Visit Provider Neurological Surgery
PROC: 0SG007J Fusion of Lumbar Vertebral Joint with Autologous Tissue Substitute, Posterior Approach, Anterior Column, Open Approach (ICD-10-PCS; CPT 22612; principal; 2025-02-28 09:30)
DX: M48.061 Spinal stenosis, lumbar region without neurogenic claudication (principal); I10 Essential (primary) hypertension; E11.9 Type 2 diabetes mellitus without complications; M19.90 Unspecified osteoarthritis, unspecified site; N40.1 Benign prostatic hyperplasia with lower urinary tract symptoms; R00.1 Bradycardia, unspecified; Z79.899 Other long term (current) drug therapy; Z87.891 Personal history of nicotine dependence; Z79.82 Long term (current) use of aspirin
CPT/HCPCS: 36415; 82948; 84439; 84443; 93005; 97161; 97165; 99199; J0690; A9270; C1713; J1171; J2003; J2004; J2371; J2405; J2704; J3010; J7120

== ENCOUNTER 2025-04-11 08:58 | Outpatient (CLI) | payer MEDICARE, OTHER, SELFPAY ==
--- NOTE | ~2025-04-11 | XR_ITS ---
EXAM/PROCEDURE: X-ray lumbar spine, 2 3 views HISTORY: Spinal stenosis COMPARISON: 2021 TECHNIQUE: 4 views were obtained. FINDINGS: Vertebral bodies: Multiple minimal to mild wedging deformities. Degenerative change throughout. Alignment: AP: Normal. Lateral: Normal. In addition to the previous or hardware, there is now been removal of posterior elements with pedicle screws from placed at L1. There is an additional disc spacing device at L1-2. IMPRESSION: Degenerative change with wedging deformities and postoperative change Reviewed, dictated and finalized at location A. E CONTROL AGENT
--- OUTSIDE RECORDS SUMMARY | 2025-04-11 09:52 | XMS_ITS | Encounter Summary ---
Author Organization [facility] Address [address] [place] [address] Phone Care Team Providers Care Pig Furnace Operator Name Role Phone Nicola Patel MD Primary Care Provider [phone] Leonel Erickson MD Unavailable [phone] Dylan Samuel DPM Unavailable [phone] Marques Rowland MD Unavailable [phone] Marky He MD Unavailable [phone] Jose Adamson MD Primary Care Provider Juju Bautista MD Unavailable [phone] Mg Keenan MD Unavailable [phone] Paul Fulton NP Unavailable [phone] Jose Adamson MD Primary Care Provider Encounter Details Date Type Department Care Team (Late st Contact Info) Description 10/19/2020 Telephone [facility] 2 [facility] [address] [place] [address] Keli Noble, LILIA Social History [...] on file Legal Sex Male 12:35 AM ELECTRIC METER REPAIRER HELPER Gender Identity Male 04/03/2021 10:40 PM CDT Sexual Orientation Straight 05/29/2020 10 :35 AM ELECTRIC METER REPAIRER HELPER 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 fi le documented as of this encounter Plan of Treatment Not on file documented as of this encounter Visit Diagnoses Not on filedocumented in this encounter Care Teams Pig Furnace Operator Relationship Specialty Start Date End Date Nicola Patel MD PCP - General Internal Medicine 03/16/17 10/18/23 Jose Adamson MD [address] [place] [address] PCP - General Family Medicine 10/19/23 11/14/24 Jose Adamson MD [address] [place] [address] PCP - General Family Medicine 11/15/24 Leonel Erickson MD Consulting Physician Urology 11/08/20 10/18/23 Dylan Samuel DPM [address] [place] [address] Consulting Physician Orthotics 09/20/21 Marques Rowland MD [address] [place] [address] Consulting Physician Gastroenterology 03/25/22 Marky He MD [address] [place] [address] Consulting Physician Neurosurgery 07/18/22 Juju Bautista MD [address] [facility] [place] [address] Surgeon Anesthesiology 10/19/23 Mg Keenan MD [address] [facility] [phone] [place] [address] Consulting Physician Plastic Surgery 10/19/23 Paul Fulton NP [address] [facility] [place] [address] Nurse Practitioner Gastroenterology 10/25/24 documented as of this encounter
--- OUTSIDE RECORDS SUMMARY | 2025-04-11 09:52 | XMS_ITS | Encounter Summary ---
Author Organization [facility] Address [address] [place] [address] Care Team Providers Care Presser Hand Name Role Phone Jf Wyatt Primary Care Provider UnavailJf Trivedi Primary Care Provider UnavailNicola Hill MD Primary Care Provider [phone] Leonel Erickson MD Unavailable [phone] Dylan Samuel DPM Unavailable [phone] Marques Rowland MD Unavailable [phone] Marky He MD Unavailable [phone] Jose Adamson MD Primary Care Provider Juju Bautista MD Unavailable [phone] Mg Keenan MD Unavailable [phone] Paul Fulton NP Unavailable [phone] Jose Adamson MD Primary Care Provider Reason for Referral * (Routine) - Closed Specialty Diagnoses / Procedures Referred By Gonzalez harmon Referred To Contact Procedures Cystourethroscopy - [facility] Health Information Management [address] [place] [address] Phone: tel: fax: [facility] Referral ID Status Reason Start Date Expiration Date Visits Re quested Visits Authorized [id number] Closed 10/22/2018 05/02/2020 1 1 H REPAIRER APPRENTICE Encounter Details Date Type Department Care Team (Late st Contact Info) Description 06/22/2015 Orders Only [facility] Health Information Management [address] [place] [id number] Nicola Patel MD [address] [facility] [address], [place] [address] Social History Tobacco Use Types Packs/Day Years Used Date Smoking Tobacco: Never Alcohol Use Standard Drinks/Week Comments Yes 0 (1 standard drink = 0.6 oz pur e alcohol) Sex and Gender Information Value Date Recorded Sex Assigned at Not on file Legal Sex Male 12:35 AM WATCH REPAIRER APPRENTICE Gender Identity Male 04/03/2021 10:40 PM CDT Sexual Orientation Straight 05/29/2020 10 :35 AM WATCH REPAIRER APPRENTICE documented as of this encounter Plan of Treatment Not on file documented as of this encounter Procedures Procedure Name Priority Date/Time Associated Diagnosis Comments CYSTOURETHROSCOPY Routine 06/22/2015 documented in this encounter Results * Cystourethroscopy - (06/22/2015) Historical Provider MD JUAREZ PROCEDURE ORDERABLES F inal Result documented in this encounter Visit Diagnoses Not on filedocumented in this encounter Care Teams Presser Hand Relationship Specialty Start Date End Date Jf Wyatt PCP - General 09/05/16 03/15/17 fJ Wyatt PCP - General 11/17/14 09/04/16 Nicola Patel MD PCP - General Internal Medicine 03/16/17 10/18/23 Jose Adamson MD [address] [place] [address] PCP - General Family Medicine 10/19/23 11/14/24 Jose Adamson MD [address] [place] [address] PCP - General Family Medicine 11/15/24 Leonel Erickson MD Consulting Physician Urology 11/08/20 10/18/23 Dylan Samuel DPM [address] [place] [address] Consulting Physician Orthotics 09/20/21 Marques Rowland MD [address] [place] [address] Consulting Physician Gastroenterology 03/25/22 [place] [address] [place] [address] Consulting Physician Neurosurgery 07/18/22 Juju Bautista MD [address] [place] [address] Surgeon Anesthesiology 10/19/23 Mg Keenan MD [address] [facility] [place] [id number] [place] [address] Consulting Physician Plastic Surgery 10/19/23 Paul Fulton NP [address] [place] [address] [place] [address] Nurse Practitioner Gastroenterology 10/25/24 documented as of this encounter
--- OUTSIDE RECORDS SUMMARY | 2025-04-11 09:52 | XMS_ITS | Clinical Summary ---
Author Organization [facility] Medical Office Building A Address [address] [place] [address] Care Team Providers Care Overhead Worker Name Role Phone Dylan Samuel DPM Unavailable [phone] Marques Rowland MD Unavailable [phone] Marky He MD Unavailable [phone] Juju Bautista MD Unavailable [phone] Mg Keenan MD Unavailable [phone] Paul Fulton NP Unavailable [phone] Jose Adamson MD Primary Care Provider Allergies [...] without long-term current use of insulin (HCC) USE 1 STRIP TO CHECK GLUCOSE ONCE DAILY 100 each 1 11/16/19 25 Active lancets (onetouch ultrasoft) miscIndications :Type 2 diabetes mellitus without complication, without long-term current use of insulin ([facility]) Use to check blood sugar once daily 100 each 1 12/03/19 25 Active amLODIPine (NORVASC) 2.5 mg tablet Take 1 tablet by mouth once daily 90 tablet 1 01/10/20 25 Active metFORMIN XR (GLUCOPHAGE XR) 500 mg 24 hr tabletIndicatio ns:Diabetes mellitus due to underlying condition with hyperglycemia, 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 (HCC) TAKE 4 TABLETS BY MOUTH ONCE DAILY WITH BREAKFAST 360 tablet 01/31/20 25 Active tirzepatide (MOUNJARO) 7.5 mg/0.5 mL pen injector injectionIndica tions:type 2 diabetes mellitus Inject 0.5 mL (7.5 mg total) under the skin once a week 2 mL 2 02/02/20 25 Active lisinopriL (PRINIVIL,ZESTR [place]) 40 mg tablet Take 1 tablet by mouth once daily 100 tablet 02/18/20 25 Active hydroCHLOROthia zide (HYDRODIURIL) 25 mg tablet Take 1 tablet by mouth once daily 100 tablet 03/13/20 25 Active hydroCHLOROthia zide (HYDRODIURIL) 25 mg tablet Take 1 tablet by mouth once daily 100 tablet 12/13/19 25 025 Discontinued Active Problems Problem Noted Date Diagnosed Date [...] 10/12/2024 Assessment & Plan (04/25/2024 12:07 PM SILVER WRAPPER): - new diagnosis - found on screening [...] 10/12/2024 Assessment & Plan (04/25/2024 5:22 PM SILVER WRAPPER): - new diagnosis - has T2DM and [...] L4-L5 - in 2015 L3-L4 - in 2018 L2-L3 - in 2021 - not on [...] - referral placed to pain management at [facility] MRI lumbar spine without contrast 03/2024 [...] L4-L5 - in 2015 L3-L4 - in 2018 L2-L3 - in 2021 - not on [...] L1-L2 Assessment & Plan (04/25/2024 11:59 AM SILVER WRAPPER): - chronic condition, stable - follows with Dr. He - hx of lumbar fusion surgeries as shown below L4-L5 - in 2015 L3-L4 - in 2018 L2-L3 - in 2021 - not on [...] L4-L5 - in 2015 L3-L4 - in 2018 L2-L3 - in 2021 - not on [...] 10/19/2023 Assessment & Plan (04/25/2024 11:46 AM SILVER WRAPPER): - chronic condition, stable status - takes [...] - Continue to follow-up with his neurosurgeon/plastic surgeon/roof cement and paint maker as they direct - he used to [...] symptoms. Assessment & Plan (05/10/2023 7:26 PM SILVER WRAPPER): Continue to follow-up with his neurosurgeon/plastic surgeon/roof cement and paint maker as they direct Assessment & Plan (03/29/2023 9:09 PM CDT): Follow-up with his neurosurgeon, plastic surgeon, pain management as they direct. Non-alcoholic fatty liver disease 04/27/2022 Assessment & Plan (04/27/2022 8:32 PM SILVER WRAPPER): Secondary to diabetes and obesity. Liver function [...] days Assessment & Plan (04/25/2024 11:58 AM SILVER WRAPPER): Chronic condition which well controlled, improved Initial [...] surgery - he does not have a stove cleaner Pes anserinus bursitis of right knee 08/09/2021 [...] hypertension Assessment & Plan (04/25/2024 11:46 AM SILVER WRAPPER): Wt Readings from Last 3 Encounters: 04/25/24 [...] hypertension Assessment & Plan (05/10/2023 7:25 PM SILVER WRAPPER): Patient is encouraged to lose weight with [...] discussed. Assessment & Plan (06/07/2021 11:07 AM SILVER WRAPPER): Patient is encouraged to lose weight with [...] management Assessment & Plan (04/22/2018 11:02 PM SILVER WRAPPER): Vascular referral when needed. Rotator cuff tear [...] concerns Assessment & Plan (04/22/2018 11:02 PM SILVER WRAPPER): Continue oxybutynin. Assessment & Plan (06/22/2017 11:22 PM SILVER WRAPPER): Continue oxybutynin. Assessment & Plan (05/25/2017 9:16 PM SILVER WRAPPER): Well controlled on oxybutynin. Hypertension associated with [...] 10/12/2024 Assessment & Plan (04/25/2024 12:12 PM SILVER WRAPPER): Blood Pressure Management BP Readings from Last [...] 03/30/2023 Assessment & Plan (05/10/2023 7:25 PM SILVER WRAPPER): Pressure well controlled on amlodipine, hydrochlorothiazide, lisinopril Assessment & Plan (03/29/2023 9:06 PM CDT): Blood pressure well controlled on amlodipine, hydrochlorothiazide, lisinopril Assessment & Plan (09/22/2022 1:59 PM CDT): Controlled with medication - continue treatment plan per PCP Assessment & Plan (08/15/2022 11:47 AM SILVER WRAPPER): Blood pressure well controlled on amlodipine, hydrochlorothiazide, lisinopril Assessment & Plan (05/05/2022 1:53 PM SILVER WRAPPER): Well controlled on the current regimen. Avoidance [...] recommended. Assessment & Plan (06/20/2021 10:18 AM SILVER WRAPPER): Recommend DASH diet, heart-healthy lifestyle, exercise. Discussed the risks of hypertension. Assessment & Plan (06/07/2021 11:06 AM SILVER WRAPPER): Add amlodipine 5 mg daily. Continue lisinopril [...] LBP. Assessment & Plan (04/22/2018 11:01 PM SILVER WRAPPER): Well controlled on the current regimen. Avoidance of salt, proper body weight, and routine exercise recommended. Assessment & Plan (06/22/2017 11:22 PM SILVER WRAPPER): Well controlled on the current regimen. Avoidance of salt, proper body weight, and routine exercise recommended. Assessment & Plan (05/25/2017 9:15 PM SILVER WRAPPER): Well controlled on the current regimen. Avoidance of salt, proper body weight, and routine exercise recommended. 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 Assessment & Plan (05/25/2017 9:15 PM SILVER WRAPPER): Well controlled on his Flomax and finasteride. [...] stomach. Assessment & Plan (04/25/2024 12:00 PM SILVER WRAPPER): - chronic condition, stable status - often [...] stomach. Assessment & Plan (06/07/2021 11:07 AM SILVER WRAPPER): Controlled on omeprazole. Assessment & Plan (04/08/2021 [...] modifications Assessment & Plan (04/22/2018 11:01 PM SILVER WRAPPER): Continue current PPI and the patient is aware of the long-term risks posed by chronic PPI usage. Magnesium level will be checked periodically. Calcium supplementation recommended. Assessment & Plan (06/22/2017 11:22 PM SILVER WRAPPER): Continue current PPI and the patient is aware of the long-term risks posed by chronic PPI usage. Magnesium level will be checked periodically. Calcium supplementation recommended. Assessment & Plan (05/25/2017 9:16 PM SILVER WRAPPER): Continue current PPI and the patient is aware of the long-term risks posed by chronic PPI usage. Magnesium level will be checked periodically. Calcium supplementation recommended. Lumbar spinal stenosis 03/16/2017 Overview (03/19/2018): Dr Zamorano injections prn. Annia/hydrocodone Assessment & Plan (05/05/2022 1:53 PM SILVER WRAPPER): Okay to proceed with lumbar fusion. Assessment & Plan (09/29/2018 9:29 PM CDT): Follow-up with his surgeon and roof cement and paint maker as they direct. Would recommend slowly weaning off of gabapentin. Assessment & Plan (08/31/2018 3:37 PM CDT): Pt wishes to proceed forward with upcoming lumbar fusion recommended by spinal surgeon. Further clearance recommendations is listed in detail under preop plan of care Assessment & Plan (04/22/2018 11:02 PM SILVER WRAPPER): Follow-up with his roof cement and paint maker as he directs. Assessment & Plan (05/25/2017 9:17 PM SILVER WRAPPER): Would recommend using only Tylenol codeine as needed. Refer back to pain management as needed. 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 Assessment & Plan (08/15/2022 11:47 AM SILVER WRAPPER): Endocrinology referral. Assessment & Plan (05/05/2022 1:55 PM SILVER WRAPPER): Needs follow-up imaging and endocrinology referral. Will plan on this after his lumbar back surgery completed. Resolved Problems Problem Noted Date Diagnosed Date Resolved Date Type 2 diabetes mellitus 04/20/2023 Medicare annual wellness visit, subsequent 05/05/2022 10/19/2023 Assessment & Plan (05/10/2023 7:25 PM SILVER WRAPPER): We discussed a comprehensive list of medical [...] needed. Assessment & Plan (05/05/2022 1:56 PM SILVER WRAPPER): We discussed a comprehensive list of medical [...] 10/19/2023 Assessment & Plan (04/27/2022 8:31 PM SILVER WRAPPER): Asymptomatic now, but he will need elective cholecystectomy once he recover from his back surgery which is scheduled 04/29/2022. Leukocytosis 03/20/2022 10/19/2023 Acute pancreatitis 03/19/2022 Assessment & Plan (05/05/2022 1:55 PM SILVER WRAPPER): Likely due to cholelithiasis. Follow-up with GI as they direct. Will need eventual surgical referral for cholecystectomy Assessment & Plan (04/27/2022 8:29 PM SILVER WRAPPER): Symptoms resolved. Differential was either due to [...] (09/25/2020): Added automatically from request for surgery [id number] Biceps tendinitis of right upper extremity 06/15/2020 [...] 10/19/2023 Assessment & Plan (04/22/2018 11:02 PM SILVER WRAPPER): Trial of terbinafine and call back if no improvement. Check hepatic function panel in 30 in 60 days. Chronic venous hypertension (idiopathic) without complications of right lower extremity 07/27/2017 10/19/2023 Edema 03/16/2017 10/19/2023 Assessment & Plan (05/25/2017 9:22 PM SILVER WRAPPER): Hopefully stopping his Actos will decrease his [...] needed. Assessment & Plan (04/22/2018 11:03 PM SILVER WRAPPER): Flu shot each March. Tetanus booster every 10 years. Shingrix recommended. Colonoscopy due April 2027. Six months with lab sooner if needed. Assessment & Plan (05/25/2017 9:16 PM SILVER WRAPPER): Flu shot each March. Tetanus booster every [...] pancreatitis. Assessment & Plan (05/10/2023 7:25 PM SILVER WRAPPER): A1c, LDL, and blood pressure currently well controlled on current regimen. Check a yearly diabetic eye exam and blood sugars daily. Monofilament testing is intact. Assessment & Plan (03/29/2023 9:06 PM CDT): A1c, LDL, and blood pressure currently well controlled on current regimen. Check a yearly diabetic eye exam and blood sugars daily. Monofilament testing is intact. Assessment & Plan (08/15/2022 11:47 AM SILVER WRAPPER): A1c, LDL, and blood pressure currently well controlled on current regimen. Check a yearly diabetic eye exam and blood sugars daily. Monofilament testing is intact. Assessment & Plan (05/05/2022 1:54 PM SILVER WRAPPER): A1c under goal. Avoid Ozempic in the [...] control. Assessment & Plan (04/22/2018 11:01 PM SILVER WRAPPER): A1c, LDL, and blood pressure currently well controlled on current regimen. Check a yearly diabetic eye exam and blood sugars daily. Take a daily aspirin. Monofilament testing is abnormal. Assessment & Plan (06/22/2017 11:22 PM SILVER WRAPPER): A1c, LDL, and blood pressure currently well [...] intact. Assessment & Plan (05/25/2017 9:15 PM SILVER WRAPPER): With his lower extremity edema and multiple [...] Encounters Date Type Department Care Team Description 03/02/2025 Orders Only [facility] Medical [facility] Cardiology [address] [place] [address] Elen Maddox MD 03/01/2025 Telephone [facility] Medical [facility] Cardiology [address], [place] [address] Aury Helm NP 02/01/2025 10:45 AM CDT Office Visit [facility] Medical [facility] Primary Care at [address] [address] Jose Adamson MD Hypertension associated with type 2 diabetes mellitus (HCC) (Primary Dx); Morbid obesity with BMI of 40.0-44.9, adult (HCC); Gastroesophageal reflux disease without esophagitis; Type 2 diabetes mellitus without complication, without long-term current use of insulin (HCC); Hepatitis C virus infection cured after antiviral drug therapy; History of fusion of lumbar spine 01/29/2025 Results Follow-Up [facility] Primary Care at [address] [address] Jose Adamson MD CBC without differential, Thyroid Function [place], Hemoglobin A1c, Additional followed-up results: 3 01/27/2025 Results Follow-Up [facility] at [address] [place] [address] Dee Padilla PA Hepatitis C (HCV) RNA PCR, quantitative Blood 01/26/2025 1:15 PM CDT Lab [address] [address] Type 2 diabetes mellitus without complication, without long-term current use of insulin (HCC); Hypertension associated with type 2 diabetes mellitus (HCC); Morbid obesity with BMI of 40.0-44.9, adult (HCC) 01/21/2025 11:45 AM CDT Lab [place] [id number] Chronic hepatitis C without hepatic coma (HCC) 01/19/2025 Telephone [facility] Primary Care at [address] [address] Jose Adamson MD Medical Question/Miscellane [...] on file Legal Sex Male 12:35 AM SILVER WRAPPER Gender Identity Male 04/03/2021 10:40 PM CDT Sexual Orientation Straight 05/29/2020 10 :35 AM SILVER WRAPPER 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 Not on file Not on fi le Last Filed Vital Signs Vital Sign Reading Time Taken Comments Blood Pressure 126/74 02/01/2025 10:37 AM CDT Pulse 58 02/01/2025 10:37 AM CDT Temperature 36.7 C (98 F) 02/01/2025 10:37 AM CDT Respiratory Rate 24 06/02/2024 11:2 4 AM SILVER WRAPPER Oxygen Saturation 97% 02/01/2025 10: 37 AM CDT Inhaled Oxygen Concentration - - Weight 131.2 kg (289 lb 3.2 oz) 025 10:37 AM CDT Height 182.9 cm (6') 02/01/2025 10:37 AM CDT Body Mass Index 39.22 02/01/2025 10:37 AM CDT Plan of Treatment Health Maintenance Due Date Last Done Comments Hepatitis B Screening 11/19/1973 Covid-19 Vaccine (2024-07 6 season) 2025 04/08/2023, 04/17/2022, 11/08/2021, Additional [...] 024, 04/16/2022, 03/29/2018, Additional history exists Hepatitis C Screening Completed 01/21/2025 , 01/21/2025, 11/25/2024, Additional history exists Medical Devices Implanted Type Area Steel Tester Device Identifier Shelf Expiration Date Model / Serial / Lot [employer] Weck Hem-O-Meliza Ligate Nonabsorbable Cartridge Medium Large Latex Free [id number] - [id number] Implanted:Qty: 1 on 07/28/2022 by Norris Dyson MD at [facility] N/A: Abdomen [employer] 05/06/2023 [id number] / [id number] Procedures Procedure Name Priority Date/Time Associated Diagnosis Comments CARDIOLOGY DOCUMENT SCAN Routine 03/01/2025 1:31 PM CDT EGFR Routine 01/26/2025 1:20 PM CDT Type [...] to underlying condition with hyperglycemia, unspecified whether assisted insulin use (HCC) PSA SCREEN Routine 10/12/2024 12:49 PM CDT Prostate cancer screening DIABETIC FOOT EXAM Routine 09/30/2024 DIABETIC EYE EXAM Routine 02/19/2023 CT ABDOMEN WO CONTRAST Schedule Routine, Read Routine (OP Routine) 09/29/2022 11:58 AM CDT Adrenal nodule COLONOSCOPY REPORT 04/13/2017 from Last 3 Months or Most Recently Relevant to Health Maintenance Results * Cardiology Document Scan (03/01/2025 1:31 PM CDT) Anatomical Region Laterality Modality Other Elen Maddox MD CV CARDIAC SERVICES PROCEDU RES Final Result * eGFR (01/26/2025 1:20 PM CDT) eGFR [...] of Race in Diagnosing Kidney Disease, JASN 202). The CKD-EPI equation should not be used for patients with unstable renal function and has not been validated in children and those over 70. Current interpretive data was last reviewed 2021. Blood 01/26/2025 1:2 0 PM CDT 01/26/2025 1:42 PM CDT Jose Adamson MD LAB BLOOD ORDERABLES Fi nal Result INGRID RODRIGUEZ ([place]) 1 [facility] [place] [address] * Thyroid Function [place] (01/26/2025 1:20 PM CDT) Pathologist [facility] TSH 1.13 0.30 - 4.20 mcIUnit/mL [facility] ([place]) Blood 01/26/2025 1:20 PM CDT 01/26/2025 1:42 PM CDT Jose Adamson MD LAB BLOOD ORDERABLES Fi nal Result Performing Organization Address City/[facility]/ZIP Co de Phone Number INGRID RODRIGUEZ ([place]) 1 [facility] [place] [address] * (ABNORMAL) CBC without differential (01/26/2025 1:20 PM CDT) Pathologist [facility] WBC 11.16(H) 3.80 - 9.90 K/cumm Hgb [...] NRBC abs 0.00 0.00 - 0.01 K/cumm [facility] ([place]) Blood 01/26/2025 1:20 PM CDT 01/26/2025 1:42 PM CDT Jose Adamson MD LAB BLOOD ORDERABLES Fi nal Result Performing Organization Address [facility] Co de Phone Number INGRID RODRIGUEZ ([place]) [address] [place] [address] * (ABNORMAL) Hemoglobin A1c (01/26/2025 1:20 PM CDT) Hgb A1C 5.9(H) 4.0 - 5.6 % [facility] ([place]) Estimated Average Glucose 123 mg/dL [facility] ([place]) Comment: The ADA recommends reporting an estimated Average Glucose (eAG) with all Hemoglobin A1c results using the equation derived from a study of 507 normal and diabetic adults. Minority populations were underrepresented and children were not included. (Diabetes Care 31:0888-3090, 2008). The eAG is not equivalent to a fasting glucose. Testing performed by: [facility], [address] [facility], [place], [address] Blood 01/26/2025 1:20 PM CDT 01/26/2025 1:42 PM CDT Jose Adamson MD LAB BLOOD ORDERABLES nal Result Performing Organization Address [facility] Co de Phone Number INGRID RODRIGUEZ ([place]) [address] [place] [address] * (ABNORMAL) Lipid panel (01/26/2025 1:20 PM CDT) Cholesterol 148 30 - 199 mg/dL [facility] ([place]) Comment: Interpretive Data Ages < or = [...] 2018. HDL 36(L) >=40 mg/dL INGRID RODRIGUEZ ([place]) Comment: Interpretive Data [...] last revised on 2024. Testing performed by: [place], [address] Non-HDL Cholesterol 112 mg/dL INGR[facility] RODRIGUEZ ([place]) Comment: Interpretive Data Ages < or = [...] last revised on 2018. Testing performed by: [facility], [facility], [place], [address] Chol/HDL ratio 4 CERNE R MICHAEL ([place]) Comment:Testing performed by : [place], [address] Blood 01/26/2025 1:20 PM CDT 01/26/2025 1:42 PM CDT Narrative INGRID RODRIGUEZ ([place]) - 01/26/2025 2:24 PM CDT Has the patient been fasting for 8 hours or more?->No us Jose Adamson MD LAB BLOOD ORDERABLES Fi nal Result INGRID RODRIGUEZ ([place]) 1 [facility] Department [place] [address] * Comprehensive metabolic panel (01/26/2025 1:20 PM CDT) Sodium 139 135 - 145 mmol/L [facility] ([place]) Potassium, pl 4.5 3.3 - 4.9 mmol/L [facility] ([place]) Chloride 106 97 - 110 [...] BLOOD ORDERABLES Fi nal Result [facility] ([place]) 1 [facility] Department [place] [address] * Hepatitis C (HCV) RNA PCR, quantitative Blood (01/21/2025 11:49 AM CDT) Pathologist [facility] HCV RNA result Not Detected [facility] Comment: The quantifiable range of this assay is 15 IU/mL to 100,000,000 IU/mL (1.18 log IU/mL to 8.00 log IU/mL). Testing was performed by the [facility] 6800 HCV Test ([employer] Testing performed at [facility] Current Interpretive Data was last revised on 2021 Testing performed by: [facility], [address] [place]., [address] Blood 01/21/2025 11:4 9 AM CDT 01/21/2025 6:04 PM CDT Paul Fulton NP LAB MICROBIOLOGY - GENERAL ORDERABLES Final Result Performing Organization Address City/[facility] Co de Phone Number [facility] [place]) [address] [place] [address] [place] [address] [facility] * PSA screen (10/12/2024 12:49 PM CDT) PSA-Total 0.12 <=5.40 ng/mL Comment: Interpretive Data [...] ORDERABLES Fi nal Result Performing Organization Address City/[facility] Co de Phone Number [facility] [place]) [address] [place] [address] [place] [address] * Albumin Creatinine Ratio, Urine (10/12/2024 12:49 PM CDT) Albumin Ur <12.0 mg/L Comment: Interpretive Data No reference range established. Current interpretive data was last revised 2018. Testing performed by: [facility], [address] [place] [address]., [address] Creatinine Ur 126.3 mg/dL INGRID RODRIGUEZ ([place]) Comment: Interpretive Data No reference range established. Current interpretive data was last revised 2018. Testing performed by: [facility], [address] [place] [address]., [address] Albumin Creatinine Ratio, Ur <10 1 - 29 mg/g INGRID RODRIGUEZ ([place]) Comment:Testing performed by : [facility], [address] [place] [address]., [address] Urine 10/12/2024 12:4 9 PM CDT 10/12/2024 7:06 PM CDT Jose Adamson MD LAB URINE ORDERABLES Fi nal Result INGRID MICHAEL ([place]) 1 [facility] Department [place] [address] * Diabetic Foot Exam (09/30/2024) us Historical Provider HEALTH MAINTENANCE Final Result * Diabetic Eye Exam (02/19/2023) Generic External Data Provider [facility] Final Result * CT [...] Relevant to Health Maintenance Insurance [employer] DEPT OF LABOR - OWCP Advance Directives For more information, please contact: [phone] * Full Code (Latest Code Status on File) Date Activated Date Inactivated Comments 03/19/2022 7:06 PM 03/25/2022 3:32 PM * Full Code Date Activated Date Inactivated Comments 11/04/2020 3:24 PM 11/08/2020 6:44 PM * Full Code Date Activated Date Inactivated Comments 11/04/2020 3:24 PM 11/04/2020 3:24 PM Care Teams Overhead Worker Relationship Specialty Start Date End Date Jose Adamson MD [address] [address] PCP - General Family Medicine 11/15/24 Dylan Samuel DPM [address] [place] [address] Consulting Physician Orthotics 09/20/21 Marques Rowland MD [address] [place] [address] Consulting Physician Gastroenterology 03/25/22 Marky He MD [address] [place] [address] Consulting Physician Neurosurgery 07/18/22 Juju Bautista MD [address] [place] [address] Surgeon Anesthesiology 10/19/23 Mg Keenan MD [address] [facility] [phone] [place] [address] Consulting Physician Plastic Surgery 10/19/23 Paul Fulton NP [address] [place] [address] [place] [address] Nurse Practitioner Gastroenterology 10/25/24
--- OUTSIDE RECORDS SUMMARY | 2025-04-11 09:53 | XMS_ITS | Clinical Summary ---
Author Organization [facility] Address [address] [place] [address] Phone Care Team Providers Care [employer] Laborer Name Role Phone Nicola Patel MD Primary Care Provider [phone] Allergies No known active allergies Medications tamsulosin [...] Comments Blood Pressure 136/84 08/12/2020 1:31 PM VIRTUAL OFFICE ASSISTANT Pulse 54 08/12/2020 1:31 PM VIRTUAL OFFICE ASSISTANT Temperature 36.6 C (97.8 F) 08/12/2020 1:31 PM VIRTUAL OFFICE ASSISTANT Respiratory Rate 18 08/12/2020 1:31 PM VIRTUAL OFFICE ASSISTANT Oxygen Saturation 96% 08/12/2020 1:31 PM VIRTUAL OFFICE ASSISTANT Inhaled Oxygen Concentration - - Weight 141.5 kg (312 lb) 08/12/2020 1:31 PM VIRTUAL OFFICE ASSISTANT Height - - Body Mass Index - [...] to complete this topic Insurance Care Teams [employer] Laborer Relationship Specialty Start Date End Date Nicola Patel MD PCP - General Internal Medicine 08/12/20
== END 2025-04-11 08:59 | disposition home or self-care (01) ==
PROVIDERS: PCP Family Medicine; Visit Provider Neurological Surgery
DX: M48.56XA Collapsed vertebra, not elsewhere classified, lumbar region, initial encounter for fracture (principal); M47.816 Spondylosis without myelopathy or radiculopathy, lumbar region; M48.062 Spinal stenosis, lumbar region with neurogenic claudication; Z98.890 Other specified postprocedural states
CPT/HCPCS: 72100